=== PATIENT | female | born 1960 | race Caucasian/White ===

== ENCOUNTER 2017-03-26 09:21 | Emergency (ER) | payer OTHER ==
[~2017-03-26] VITALS: Ht 160 cm; Wt 70.0 kg
[2017-03-26 09:23] VITALS: BP 97/56; PULSE 92; RESP 24; TEMP 99.1; O2SAT 94
[2017-03-26] MEDS ORDERED: PRAV20TA2 PO (09:36)
[2017-03-26] MEDS ORDERED: BUPR150CR PO (09:36)
[2017-03-26] MEDS ORDERED: LEVO125T4 PO (09:36)
[2017-03-26] MEDS ORDERED: PROZ20CA11 PO (09:36)
[2017-03-26] MEDS ORDERED: KETOROLAC TROMETHAMINE 60 MG/2 ML (IM) VIAL IM ONE (10:15)
[2017-03-26] MEDS ORDERED: HYDROmorphone HCL PF 1 MG/ML VIAL IM ONE (10:15)
[2017-03-26] MEDS ORDERED: NAPR250T PO (10:50)
[2017-03-26] MEDS ORDERED: OMEP20TA PO (10:50)
[2017-03-26] MEDS ORDERED: PERC5TAB12 PO (10:50)
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
[2017-03-26 10:53] VITALS: RESP 16
[2017-03-26 10:55] VITALS: BP 110/69; TEMP 97.8
[2017-04-22] MEDS ORDERED: ROSU40 PO (13:02)
[2017-05-13] MEDS ORDERED: ROSU20 PO (08:16)
== END 2017-03-26 10:55 | disposition home or self-care (01) ==
LOC: NEPD 09:21
DX: M54.5 Low back pain (principal); G89.29 Other chronic pain; E03.9 Hypothyroidism, unspecified; E78.5 Hyperlipidemia, unspecified; F17.200 Nicotine dependence, unspecified, uncomplicated; Z88.0 Allergy status to penicillin; Z79.899 Other long term (current) drug therapy
CPT/HCPCS: 96372; 99284; J1170; J1885

== ENCOUNTER 2017-03-26 21:43 | Inpatient (IN) | payer OTHER, MEDICARE ==
[~2017-03-26] VITALS: Ht 154.9 cm; Wt 88.5 kg
[~2017-03-26 21:43] MED LIST: BUPR150CR PO; IOHEXOL 350 MG/ML 10 ML VIAL (for RAD DIAG) IVCONTRAST ONE; LEVO125T4 PO; NAPR250T PO; OMEP20TA PO; PERC5TAB12 PO; PRAV20TA2 PO; PROZ20CA11 PO
[2017-03-26 21:45] VITALS: BP 111/62; PULSE 102; RESP 20; TEMP 99.5; O2SAT 97
[2017-03-27] VITALS (11 sets, daily range): BP systolic 85–135; BP diastolic 60–77; PULSE 90–106; RESP 16–25; TEMP 98.1–103.3; O2SAT 92–100
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
[2017-03-27] MEDS ORDERED: ONDANSETRON HCL 4 MG/2 ML VIAL IVP ONE (02:15)
[2017-03-27] MEDS ORDERED: MORPHINE SULFATE 4 MG/ML INJ IV PUSH ONE (02:15)
[2017-03-27] MEDS ORDERED: SODIUM CHLOR 0.9% 1000 ML INJ 1,000 ML IV SCH (02:36)
[2017-03-27 02:39] LABS: BASOPHIL # 0.1 TH/MM3 (0-0.2); BASOPHIL % 0.6 % (0.0-2.0); EOSINOPHIL % 0.1 % (0.0-4.0); HEMATOCRIT 33.4 % (35.0-46.0); HEMO FLAGS DIFF FINAL; LYMPH % 20.6 % (9.0-44.0); LYMPHOCYTE # 3.2 TH/MM3 (1.0-4.8); MEAN CELL VOLUME 96.7 FL (80.0-100.0); MEAN CORPUSCULAR HEMOGLOBIN 33.2 PG (27.0-34.0); MEAN CORPUSCULAR HGB CONC 34.4 % (32.0-36.0); NEUT % 69.7 % (16.0-70.0); PLATELET COUNT 286 TH/MM3 (150-450); RED BLOOD COUNT 3.46 MIL/MM3 (4.00-5.30); RED CELL DISTRIBUTION WIDTH 13.9 % (11.6-17.2); WHITE BLOOD COUNT 15.8 TH/MM3 (4.0-11.0)
[2017-03-27 02:46] LABS: ALT (GPT) 18 U/L (10-53); ANION GAP 10 MEQ/L (5-15); AST (GOT) 14 U/L (15-37); BICARBONATE 21.6 MEQ/L (21.0-32.0); BLOOD UREA NITROGEN 23 MG/DL (7-18); CHLORIDE 104 MEQ/L (98-107); GLOMERULAR FILTRATION RATE 60 ML/MIN (>89); POTASSIUM 3.6 MEQ/L (3.5-5.1); SODIUM (NA) 136 MEQ/L (136-145)
[2017-03-27 02:49] LABS: ALKALINE PHOSPHATASE 82 U/L (45-117); TOTAL BILIRUBIN ADULT 0.3 MG/DL (0.2-1.0)
[2017-03-27 03:14] LABS: BACTERIA, URINE RARE /hpf; BLOOD, URINE MOD (NEG); COMMENT (UR) CULTURE INDICATED; CULTURE IF INDICATED CULTURE INDICATED; GLUCOSE,URINE NEG (NEG); KETONE, URINE NEG (NEG); MUCUS URINE FEW /lpf (OCC); NITRITE,URINE NEG (NEG); SQUAMOUS EPITHELIAL CELL URINE 1 /hpf (0-5); URINE COLOR YELLOW (YELLW/STRAW)
[2017-03-27] MEDS ORDERED: HYDROmorphone HCL PF 1 MG/ML VIAL IV PUSH ONE ×2 (03:30→10:45)
--- NOTE | 2017-03-27 03:31 | RADRPT ---
EXAM DATE/TIME: 03/27/2017 03:00 [facility] COMPARISON: No previous studies available for comparison. INDICATIONS : Lower abdominal pain. IV CONTRAST: 100 cc Omnipaque 350 (iohexol) IV ORAL CONTRAST: No oral contrast ingested. RADIATION DOSE: 11.75 CTDIvol (mGy) MEDICAL HISTORY : Hypertension. SURGICAL HISTORY : section. Fusion, lumbar. ENCOUNTER: Initial ACUITY: 2 days PAIN SCALE: 10/10 LOCATION: Bilateral lower quadrant TECHNIQUE: Volumetric scanning of the abdomen and pelvis was performed. Using automated exposure control and ad justment of the mA and/or kV according to patient size, radiation dose was kept as low as reasonably achievable to obtain optimal diagnostic quality images. DICOM format image data is available electro nically for review and comparison. FINDINGS: LOWER LUNGS: There is dependent atelectasis. LIVER: The liver contains multiple low-density lesions in both lobes with the largest measuring 12 mm. The s ubcentimeter lesions are too small to characterize. No highly suspicious lesion is seen. There is no dilation of the biliary tree. No calcified gallstones. SPLEEN: Normal size without lesion. PANCREAS: Within normal limits. KIDNEYS: Normal in size and shape. Moderate to severe left hydronephrosis is present with a staghorn calculus in the renal pelvis and 2 nonobstructing lower pole renal stones measuring up to 14 mm. There is inf lammation and mild urothelial thickening of the proximal ureter and renal pelvis. No ureteral stones are visualized. There is a 13 mm cyst in the right lower pole kidney. ADRENAL GLANDS: Within normal limits. VASCULAR: There is no aortic aneurysm. There is severe atherosclerotic disease. BOWEL/MESENTERY: The stomach, small bowel, and colon demonstrate no acute abnormality. There is no free intraperitone al air or fluid. The appendix is normal. ABDOMINAL WALL: Within normal limits. RETROPERITONEUM: There is no lymphadenopathy. BLADDER: No wall thickening or mass. REPRODUCTIVE: Within normal limits. INGUINAL: There is no lymphadenopathy or hernia. MUSCULOSKELETAL: There degenerative changes of the lumbar spine and patient is post posterior spinal fixation with yoly dware and laminectomy. CONCLUSION: 1. There is a left staghorn calculus in the renal pelvis causing moderate to severe left hydronephros is and inflammatory changes of the renal pelvis and proximal left ureter. 2. There are additional nonobstructing stones in the left lower pole collecting system measuring up t o 14 mm. Joselo Castro MD on March 27, 2017 at 3:24 Board Certified Radiologist. This report was verified electronically.
--- NOTE | 2017-03-27 03:34 | RADRPT ---
EXAM DATE/TIME: 03/27/2017 03:00 [facility] COMPARISON: No previous studies available for comparison. INDICATIONS : Severe lower back pain, radiates down both legs. RADIATION DOSE: ; Reconstructed from previous dataset, no dose MEDICAL HISTORY : None SURGICAL HISTORY : Fusion, lumbar. ENCOUNTER: Initial ACUITY: 1 day PAIN SCALE: 10/10 LOCATION: Lumbar spine. TECHNIQUE: Volumetric scanning of the lumbar spine was performed. Multiplanar reconstructions in the sagittal, coronal and oblique axial planes were performed. Using automated exposure control and adjustment of the mA and/or kV according to patient size, radiation dose was kept as low as reasonably achievable t o obtain optimal diagnostic quality images. DICOM format image data is available electronically for review and comparison. FINDINGS: VERTEBRAE: Normal vertebral body height. There has been prior laminectomy at L4-L5 and L5-S1. Posterior spinal h ardware is present at L4-S1 consisting of pedicular screws and vertical stabilization rods. There is partial fusion between the L4-L5 and L5-S1 levels. ALIGNMENT: No anterolisthesis or retrolisthesis. T12-L1: No disc herniation, canal stenosis, or neural foraminal stenosis. L1-L2: No disc herniation, canal stenosis, or neural foraminal stenosis. L2-L3: No disc herniation, canal stenosis, or neural foraminal stenosis. L3-L4: There is a diffuse disc bulge with facet hypertrophy bilaterally, right greater than left. These mario ges likely narrow the spinal canal. Spinal canal is obscured partially secondary to beam hardening ar tifact. There is mild neural foraminal narrowing bilaterally. L4-L5: Spinal canal is mostly obscured by beam hardening artifact. No neural foraminal narrowing is present. L5-S1: Spinal canal is mostly obscured by beam hardening artifact. No neural foraminal narrowing is present. CONCLUSION: 1. Mild spinal canal stenosis at L3-L4 secondary to disc bulge and facet arthrosis. 2. Postsurgical changes at L4-S1, as above. Joselo Castro MD on March 27, 2017 at 3:30 Board Certified Radiologist. This report was verified electronically.
[2017-03-27] MEDS ORDERED: cefTRIAXone INJ 1,000 MG in SODIUM CHLORIDE 0.9% INJ 100 ML IV ONE (03:45)
[2017-03-27] MEDS ORDERED: KETOROLAC TROMETHAMINE 30 MG/ML (IVP) VIAL IV PUSH ONE (03:45)
[2017-03-27] MEDS ORDERED: NALOXONE HCL 0.4 MG/ML AMP IV PRN (04:00)
[2017-03-27] MEDS ORDERED: SODIUM CHLORIDE 0.9% FLUSH 10 ML FLUSH IV FLUSH PRN (04:00)
[2017-03-27] MEDS: CIPROFLOXACIN 400 MG PREMIX 200 ML IV SCH ×2 (04:34→17:01)
[2017-03-27] MEDS: SODIUM CHLOR 0.9% 1000 ML INJ 1,000 ML IV SCH ×2 (04:34→19:30)
--- NOTE | 2017-03-27 05:28 | HHI.HP ---
HPI Service [facility] Primary Care Physician Quirino Garcia MD Admission Diagnosis pyelonephritis, hydronephrosis, renal stone Diagnoses: Chief Complaint: Back pain Travel History International Travel<30 Days: No Contact w/Intl Traveler <30 Da: No Traveled to Known Affected Are: No History of Present Illness Written by RIVER Brock acting as scribe for [Navin] on 03/27/17 at 05: 21. 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 She states the back pain is severe in her lower back and it radiates to her hips and she has associated diaphoresis and nausea. She denies any fevers, chills, dysuria, chest pain or sob. Review of Systems Except as stated in HPI: all other systems reviewed are Neg Past Family Social History Past Medical History hypothyroid htn (not on any medications for 4 months) depression anxiety HLD nerve damage Past Surgical History C section x 3 Back surgery Reported Medications Reported Meds & Active Scripts Active Omeprazole 20 Mg Tab 20 Mg PO DAILY 14 Days Percocet (Oxycodone-Acetaminophen) 5-325 mg Tab 1-2 Tab PO Q6H PRN Naproxen 250 Mg Tab 250 Mg PO BID 14 Days Reported Prozac (Fluoxetine HCl) 20 Mg Cap Unknown Dose PO DAILY Pravastatin 20 Mg Tab Unknown Dose PO DAILY Levothyroxine (Levothyroxine Sodium) 125 Mcg Tab 125 Mcg PO DAILY Wellbutrin SR 12 HR (Bupropion HCl) 150 Mg Tab 150 Mg PO Q12HR Allergies: Coded Allergies: amoxicillin (Verified Allergy, Intermediate, hives, 03/27/17) Active Ordered Medications Current Medications Medications (Trade) Dose Ordered Sig/Devan Route Start Time Stop Time Status Last Admin Sodium Chloride 1,000 ml @ 100 mls/hr Q10H IV 03/27/17 03:59 03/27/17 04:34 (NS Flush) 2 ml UNSCH PRN IV FLUSH 03/27/17 04:00 (NS Flush) 2 ml BID IV FLUSH 03/27/17 09:00 (Zofran Inj) 4 mg Q6H PRN IVP 03/27/17 04:00 (Narcan Inj) 0.4 mg UNSCH PRN IV 03/27/17 04:00 (Dilaudid Pf Inj) 0.5 mg Q4H PRN IV PUSH 03/27/17 04:00 Ciprofloxacin/ Dextrose 200 ml @ 200 mls/hr Q12H IV 03/27/17 04:00 03/27/17 04:34 Family History Mom: HTN Social History Patient denies any tobacco, alcohol or illicit drug use. Physical Exam Vital Signs Vital Signs Date Time Temp Pulse Resp B/P (MAP) Pulse Ox O2 Delivery O2 Flow Rate FiO2 03/27/17 01:50 90 16 123/72 (89) 97 Room Air 03/26/17 21:45 99.5 102 20 111/62 (78) 97 Room Air Physical Exam GENERAL: This is a well-nourished, well-developed patient, in no apparent distress. SKIN: No rashes, ecchymoses or lesions. Cool and dry. HEAD: Atraumatic. Normocephalic. . EYES: Pupils equal round and reactive. Extraocular motions intact. ENT: Nose without bleeding, purulent drainage or septal hematoma. Airway patent. NECK: Trachea midline. No JVD or lymphadenopathy. CARDIOVASCULAR: Regular rate and rhythm without murmurs, gallops, or rubs. RESPIRATORY: Clear to auscultation. Breath sounds equal bilaterally. No wheezes , rales, or rhonchi. GASTROINTESTINAL: Abdomen soft, non-tender, nondistended. No hepato-splenomegaly , or palpable masses. No guarding. MUSCULOSKELETAL: Extremities without clubbing, cyanosis, or edema. No joint tenderness, effusion, or edema noted. No calf tenderness. CVA tenderness NEUROLOGICAL: Awake and alert. Motor and sensory grossly within normal limits. Normal speech. Laboratory Laboratory Tests Test 03/27/17 02:15 03/27/17 02:40 03/27/17 04:00 White Blood Count 15.8 Red Blood Count 3.46 Hemoglobin 11.5 Hematocrit 33.4 Mean Corpuscular Volume 96.7 Mean Corpuscular Hemoglobin 33.2 Mean Corpuscular Hemoglobin Concent 34.4 Red Cell Distribution Width 13.9 Platelet Count 286 Mean Platelet Volume 7.1 Neutrophils (%) (Auto) 69.7 Lymphocytes (%) (Auto) 20.6 Monocytes (%) (Auto) 9.0 Eosinophils (%) (Auto) 0.1 Basophils (%) (Auto) 0.6 Neutrophils # (Auto) 11.0 Lymphocytes # (Auto) 3.2 Monocytes # (Auto) 1.4 Eosinophils # (Auto) 0.0 Basophils # (Auto) 0.1 CBC Comment DIFF FINAL Differential Comment Blood Urea Nitrogen 23 Creatinine 0.95 Random Glucose 113 Total Protein 7.7 Albumin 3.2 Calcium Level 8.9 Alkaline Phosphatase 82 Aspartate Amino Transf (AST/SGOT) 14 Alanine Aminotransferase (ALT/SGPT) 18 Total Bilirubin 0.3 Sodium Level 136 Potassium Level 3.6 Chloride Level 104 Carbon Dioxide Level 21.6 Anion Gap 10 Estimat Glomerular Filtration Rate 60 Lipase 83 Urine Color YELLOW Urine Turbidity CLOUDY Urine pH 6.0 Urine Specific [place] 1.024 Urine Protein 30 Urine Glucose (UA) NEG Urine Ketones NEG Urine Occult Blood MOD Urine Nitrite NEG Urine Bilirubin NEG Urine Urobilinogen LESS THAN 2.0 Urine Leukocyte Esterase LARGE Urine RBC 19 Urine WBC Urine WBC Clumps FEW Urine Squamous Epithelial Cells 1 Urine Bacteria RARE Urine Mucus FEW Microscopic Urinalysis Comment CULTURE INDICATED Lactic Acid Level 0.7 Date/Time Source Procedure Growth Status 03/27/17 03:50 Blood Peripheral Aerobic Blood Culture Pending Received 03/27/17 03:50 Blood Peripheral Anaerobic Blood Culture Pending Received 03/27/17 02:40 Urine Clean Catch Urine Culture Pending Received Result Diagram: 03/27/175 03/27/17 0215 Imaging Last Impressions Abdomen/Pelvis CT 03/27/17 0208 Signed Impressions: Service Date/Time: Monday, March 27, 2017 03:00 - CONCLUSION: 1. There is a left staghorn calculus in the renal pelvis causing moderate to severe left hydronephrosis and inflammatory changes of the renal pelvis and proximal left ureter. 2. There are additional nonobstructing stones in the left lower pole collecting system measuring up to 14 mm. Joselo Castro MD Lumbar Spine CT 03/27/17 0000 Signed Impressions: Service Date/Time: Monday, March 27, 2017 03:00 - CONCLUSION: 1. Mild spinal canal stenosis at L3-L4 secondary to disc bulge and facet arthrosis. 2. Postsurgical changes at L4-S1, as above. MD Rony Mast VTE Risk Assessment Caprinjuanito VTE Risk Assessment: No/Low Risk (score <= 1) Caprini Risk Assessment Model Point Value = 1 Point Value = 2 Point Value = 3 Point Value = 5 Age 41-60 Minor surgery BMI > 25 kg/m2 Swollen legs Varicose veins or History of unexplained or recurrent spontaneous Oral contraceptives or hormone replacement Sepsis (< 1 month) Serious lung disease, including pneumonia (< 1 month) Abnormal pulmonary function Acute myocardial infarction Congestive heart failure (< 1 month) History of inflammatory bowel disease Medical patient at bed rest Age 61-74 Arthroscopic surgery Major open surgery (> 45 min) Laparoscopic surgery (> 45 min) Malignancy Confined to bed (> 72 hours) Immobilizing plaster cast Central venous access Age >= 75 History of VTE Family history of VTE Factor V Leiden Prothrombin [id number] Lupus anticoagulant Anticardiolipin antibodies Elevated serum homocysteine Heparin-induced thrombocytopenia Other congenital or acquired thrombophilia Stroke (< 1 month) Elective arthroplasty Hip, pelvis, or leg fracture Acute spinal cord injury (< 1 month) Prophylaxis Regimen Total Risk Factor Score Risk Level Prophylaxis Regimen 0-1 Low Early ambulation 2 Moderate Order ONE of the following: *Sequential Compression Device (SCD) *Heparin 5000 units SQ BID 3-4 Higher Order ONE of the following medications: *Heparin 5000 units SQ TID *Enoxaparin/Lovenox 40 mg SQ daily (WT < 150 kg, CrCl > 30 mL/min) *Enoxaparin/Lovenox 30 mg SQ daily (WT < 150 kg, CrCl > 10-29 mL/min) *Enoxaparin/Lovenox 30 mg SQ BID (WT < 150 kg, CrCl > 30 mL/min) AND/OR *Sequential Compression Device (SCD) 5 or more Highest Order ONE of the following medications: *Heparin 5000 units SQ TID (Preferred with Epidurals) *Enoxaparin/Lovenox 40 mg SQ daily (WT < 150 kg, CrCl > 30 mL/min) *Enoxaparin/Lovenox 30 mg SQ daily (WT < 150 kg, CrCl > 10-29 mL/min) *Enoxaparin/Lovenox 30 mg SQ BID (WT < 150 kg, CrCl > 30 mL/min) AND *Sequential Compression Device (SCD) Assessment and Plan Problem List: (1) Pyelonephritis ICD Code: N12 - Tubulo-interstitial nephritis, not specified as acute or chronic Status: Acute (2) Hydronephrosis ICD Code: N13.30 - Unspecified hydronephrosis Status: Acute (3) Kidney stone ICD Code: N20.0 - Calculus of kidney Status: Acute Assessment and Plan 56 y/o female with a history hypothyroid, htn (not on any medications for 4 months), depression, anxiety, HLD and 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 Kidney stone with hydronephrosis Abdominal CT shows a left staghorn calculus in the renal pelvis causing moderate to severe left hydronephrosis and inflammatory changes of the renal pelvis and proximal left ureter. -Consult urology for possible stone removal -Nothing by mouth -Pain management with IV Dilaudid -IVF hydration Leukocytosis suspect pyelonephritis, WBC 17.1, abnormal UA with large leukocyte esterase, moderate acute blood and protein -Urine culture pending -IV antibiotics ciprofloxacin -Trend CBC in a.m. Depression, chronic: Will resume home medications. Hypothyroidism, chronic: Will order home medications DVT prophylaxis: SCDs This note was transcribed by severo [Shawna Cuevas]. I, Dr. Virgil Holden personally performed the history, physical exam, and medical decision making; and confirmed the accuracy of the information in the transcribed note. Authenticated by Dr. Virgil Holden on 03/27/17 at 05:21. Discussed Condition With Patient and ED physician Physician Certification 2 Midnight Certification Type: Admission for Inpatient Services Order for Inpatient Services The services are ordered in accordance with Medicare regulations or non- Medicare payer requirements, as applicable. In the case of services not specified as inpatient-only, they are appropriately provided as inpatient services in accordance with the 2-midnight benchmark. Estimated LOS (days): 2 days is the estimated time the patient will need to remain in the hospital, assuming treatment plan goals are met and no additional complications. Post-Hospital Plan: Home Problem Qualifiers (1) Hydronephrosis: Qualified Codes: N13.2 - Hydronephrosis with renal and ureteral calculous obstruction Shawna Cuevas Mar 27, 2017 05:28 Virgil Holden MD Mar 27, 2017 09:38
[2017-03-27] MEDS: LEVOTHYROXINE SODIUM 125 MCG TAB PO SCH (06:00)
[2017-03-27] MEDS: buPROPion HCL 150 MG SUSTAINED RELEASE TAB PO SCH ×2 (08:12→20:17)
[2017-03-27] MEDS: SODIUM CHLORIDE 0.9% FLUSH 10 ML FLUSH IV FLUSH SCH ×2 (08:12→20:17)
[2017-03-27] MEDS: PANTOPRAZOLE SOD 20 MG DELAYED RELEASE TAB PO SCH (08:12)
[2017-03-27] MEDS: HYDROmorphone HCL PF 1 MG/ML VIAL IV PUSH PRN ×2 (08:13→10:49)
--- NOTE | 2017-03-27 10:29 | HHI.PR ---
Addendum to Inpatient Note Additional Information pt seen and examined , pain is "07/05" , will give another dose of Dilaudid now to control pain Igor Carranza MD Mar 27, 2017 10:29
--- NOTE | 2017-03-27 10:47 | PD.CONS ---
HPI Service Urology Consult Requested By Primary Care Physician Quirino Garcia MD Diagnosis: (1) Pyelonephritis ICD Code: N12 - Tubulo-interstitial nephritis, not specified as acute or chronic (2) Hydronephrosis ICD Code: N13.30 - Unspecified hydronephrosis (3) Kidney stone ICD Code: N20.0 - Calculus of kidney History of Present Illness 26-year-old female presents with 24-hour onset of abdominal pain. She denies fever or chills or nausea and vomiting. CT scan emergency room demonstrated a large left staghorn calculus causing moderate to severe hydronephrosis with some mild stranding. She notes a prior history of stones in the past. She has a history of hypothyroidism, anxiety, hyperlipidemia, hypertension and depression. She denies any surgical intervention for stones in the past. She denies a family history of stones. Review of Systems ROS Limitations: Clinical Condition Constitutional: DENIES: Diaphoretic episodes Endocrine: DENIES: Abnorml menstrual pattern Eyes: DENIES: Blurred vision Respiratory: DENIES: Apneas Cardiovascular: DENIES: Chest pain Gastrointestinal: COMPLAINS OF: Abdominal pain Genitourinary: DENIES: Abnormal vaginal bleeding Musculoskeletal: DENIES: Joint pain Integumentary: DENIES: Abnormal pigmentation Hematologic/lymphatic: DENIES: Bruising Immunologic/allergic: DENIES: Eczema Neurologic: DENIES: Abnormal gait Psychiatric: COMPLAINS OF: Anxiety, Depression Except as stated in HPI: all other systems reviewed are Neg Past Family Social History Past Medical History Hypothyroidism Nephrolithiasis Hypertension Anxiety and depression Hyperlipidemia Past Surgical History Back surgery Allergies: Coded Allergies: amoxicillin (Verified Allergy, Intermediate, hives, 03/27/17) Family History Negative for stones Social History Denies smoking drinking or using drugs Physical Exam Vital Signs Date Time Temp Pulse Resp B/P (MAP) Pulse Ox O2 Delivery O2 Flow Rate FiO2 03/27/17 07:30 98.1 90 20 118/74 (89) 94 03/27/17 03:30 97 16 135/77 (96) 92 Nasal Cannula 2.00 03/27/17 01:50 90 16 123/72 (89) 97 Room Air 03/26/17 21:45 99.5 102 20 111/62 (78) 97 Room Air Physical Exam GENERAL: This is a well-nourished, well-developed patient, in no apparent distress. SKIN: No rashes, ecchymoses or lesions. Cool and dry. HEAD: Atraumatic. Normocephalic. No temporal or scalp tenderness. EYES: Pupils equal round and reactive. Extraocular motions intact. No scleral icterus. No injection or drainage. ENT: Nose without bleeding, purulent drainage or septal hematoma. Throat without erythema, tonsillar hypertrophy or exudate. Uvula midline. Airway patent. NECK: Trachea midline. No JVD or lymphadenopathy. Supple, nontender, no meningeal signs. CARDIOVASCULAR: Regular rate and rhythm without murmurs, gallops, or rubs. RESPIRATORY: Clear to auscultation. Breath sounds equal bilaterally. No wheezes , rales, or rhonchi. GASTROINTESTINAL: Abdomen soft, generalized tenderness, nondistended. No hepato- splenomegaly, or palpable masses. No guarding. GENITOURINARY: Bilateral CVA tenderness is noted. Normal female external genitalia MUSCULOSKELETAL: Extremities without clubbing, cyanosis, or edema. No joint tenderness, effusion, or edema noted. No calf tenderness. Negative Homans sign bilaterally. NEUROLOGICAL: Awake and alert. Cranial nerves II through XII intact. Motor and sensory grossly within normal limits. Five out of 5 muscle strength in all muscle groups. Normal speech. Laboratory Tests Test 03/27/17 02:15 03/27/17 02:40 03/27/17 04:00 White Blood Count 15.8 Red Blood Count 3.46 Hemoglobin 11.5 Hematocrit 33.4 Mean Corpuscular Volume 96.7 Mean Corpuscular Hemoglobin 33.2 Mean Corpuscular Hemoglobin Concent 34.4 Red Cell Distribution Width 13.9 Platelet Count 286 Mean Platelet Volume 7.1 Neutrophils (%) (Auto) 69.7 Lymphocytes (%) (Auto) 20.6 Monocytes (%) (Auto) 9.0 Eosinophils (%) (Auto) 0.1 Basophils (%) (Auto) 0.6 Neutrophils # (Auto) 11.0 Lymphocytes # (Auto) 3.2 Monocytes # (Auto) 1.4 Eosinophils # (Auto) 0.0 Basophils # (Auto) 0.1 CBC Comment DIFF FINAL Differential Comment Blood Urea Nitrogen 23 Creatinine 0.95 Random Glucose 113 Total Protein 7.7 Albumin 3.2 Calcium Level 8.9 Alkaline Phosphatase 82 Aspartate Amino Transf (AST/SGOT) 14 Alanine Aminotransferase (ALT/SGPT) 18 Total Bilirubin 0.3 Sodium Level 136 Potassium Level 3.6 Chloride Level 104 Carbon Dioxide Level 21.6 Anion Gap 10 Estimat Glomerular Filtration Rate 60 Lipase 83 Urine Color YELLOW Urine Turbidity CLOUDY Urine pH 6.0 Urine Specific [place] 1.024 Urine Protein 30 Urine Glucose (UA) NEG Urine Ketones NEG Urine Occult Blood MOD Urine Nitrite NEG Urine Bilirubin NEG Urine Urobilinogen LESS THAN 2.0 Urine Leukocyte Esterase LARGE Urine RBC 19 Urine WBC Urine WBC Clumps FEW Urine Squamous Epithelial Cells 1 Urine Bacteria RARE Urine Mucus FEW Microscopic Urinalysis Comment CULTURE INDICATED Lactic Acid Level 0.7 Date/Time Source Procedure Growth Status 03/27/17 03:50 Blood Peripheral Aerobic Blood Culture Pending Received 03/27/17 03:50 Blood Peripheral Anaerobic Blood Culture Pending Received 03/27/17 02:40 Urine Clean Catch Urine Culture Pending Received Result Diagram: 03/27/175 03/27/17 0215 Imaging Last Impressions Abdomen/Pelvis CT 03/27/17 0208 Signed Impressions: Service Date/Time: Monday, March 27, 2017 03:00 - CONCLUSION: 1. There is a left staghorn calculus in the renal pelvis causing moderate to severe left hydronephrosis and inflammatory changes of the renal pelvis and proximal left ureter. 2. There are additional nonobstructing stones in the left lower pole collecting system measuring up to 14 mm. Joselo Castro MD Lumbar Spine CT 03/27/17 0000 Signed Impressions: Service Date/Time: Monday, March 27, 2017 03:00 - CONCLUSION: 1. Mild spinal canal stenosis at L3-L4 secondary to disc bulge and facet arthrosis. 2. Postsurgical changes at L4-S1, as above. Joselo Castro MD Assessment and Plan Assessment and Plan 56-year-old female with findings of a large left staghorn calculus with moderate to severe hydronephrosis. Due to large stone would recommend a left percutaneous nephrostomy tube with nephroureteral stent. Check urine cultures and continue with IV antibiotics Will need left percutaneous nephrolithotomy after her infection has cleared as an outpatient. Thank you for the consult and allowing me to participate in care of this patient. Problem Qualifiers (1) Hydronephrosis: Qualified Codes: N13.2 - Hydronephrosis with renal and ureteral calculous obstruction Shar Morales DO Mar 27, 2017 10:47
[2017-03-27] MEDS ORDERED: ONDANSETRON HCL 4 MG/2 ML VIAL IV PUSH ONE (12:00)
[2017-03-27] MEDS ORDERED: LACTATED RINGER'S 1000 ML INJ 1,000 ML IV ONE (12:00)
[2017-03-27] MEDS ORDERED: NEOSTIGMINE 3 MG/3 ML SYR IV ONE (12:00)
[2017-03-27] MEDS ORDERED: KETAMINE HCL 500 MG/5 ML VIAL IV ONE (12:00)
[2017-03-27] MEDS ORDERED: IOHEXOL 350 MG/ML 50 ML BTL (for RAD DIAG) IVCONTRAST ONE (12:00)
[2017-03-27] MEDS ORDERED: PROPOFOL 200 MG/20 ML AMP IV ONE (12:00)
[2017-03-27] MEDS ORDERED: PHENYLEPH/NS 1000 MCG/10 ML SYR IV ONE (12:00)
[2017-03-27 12:42] LABS: APTT (PATIENT) 33.6 SEC (24.3-30.1); PROTHROMBIN TIME - PATIENT 11.6 SEC (9.8-11.6)
[2017-03-27] MEDS ORDERED: MIDAZOLAM HCL 2 MG/2 ML VIAL ONE ×2 (13:32)
[2017-03-27] MEDS ORDERED: LEVOFLOXACIN 500 MG PREMIX INJ 100 ML IV ONE (15:08)
[2017-03-27] MEDS ORDERED: MEPERIDINE HCL 50 MG/ML VIAL ONE (16:06)
--- NOTE | 2017-03-27 16:32 | PD.RAD ---
Post Procedure Progress Note Pre Procedure Diagnosis: (1) Pyelonephritis Post Procedure Diagnosis: (1) Pyelonephritis Procedure Date: Mar 27, 2017 Supervising Radiologist: Morro Pinon Proceduralist/Assist: Stephy Luciano, RT(R)(CV), Santiago Mandel, RT(R), Giselle Alaniz, RT(R) Anesthesia: Conscious Sedation Plan of Activity Patient to Unit: ROPU Patient Condition: Fair See PACS Report for procedural detail/treatment Drainage Procedure Procedure 1 Imaging Guidance: Fluoroscopy Side: Left Procedure Type: Nephrostomy Procedure: Evaluation (failed nephrostomy secondary to staghor, pyonephrosis with specimen sent to [facility]) Morro Pinon MD Mar 27, 2017 16:32
[2017-03-27] MEDS: GENTAMICIN 80 MG PREMIX 100 ML IV SCH ×2 (16:37→18:07)
[2017-03-27] MEDS ORDERED: ACETAMINOPHEN 325 MG TAB PO PRN (16:45)
[2017-03-27] MEDS ORDERED: ACETAMINOPHEN 1000 MG/100 ML VIAL IV ONE (16:45)
[2017-03-27] MEDS ORDERED: IOHEXOL 350 MG/ML 50 ML BTL (for RAD DIAG) ONE (18:37)
[2017-03-27] MEDS ORDERED: NOREPINEPHRINE 4 MG/4 ML AMP ONE (18:59)
--- NOTE | 2017-03-27 19:00 | PD.OP ---
Operative Report Date of Surgery: Mar 27, 2017 Preoperative Diagnosis: (1) Staghorn renal calculus (2) Hydronephrosis, left Postoperative Diagnosis: (1) Hydronephrosis, left (2) Staghorn renal calculus Procedure: Cystoscopy, left retrograde pyelogram, placement of left shelter ureteral stent and left nephrostogram Anesthesia: General Surgeon: Chester Marsh Binding End Stitcher(s): None Operation and Findings: Indication for procedure: Case of a pleasant 56-year-old female with left hydronephrosis secondary to a staghorn calculus who underwent placement of a percutaneous nephrostomy tube earlier today. The nephrostomy tube was placed in one of the lower pole calyces however a nephro ureteral stent was unable to be placed due to obstruction from the staghorn calculus. Patient presents now to further decompress the left kidney with placement of a left ureteral stent. Operative procedure in detail: Patient was brought to the operating suite and placed supine on the cystoscopy table. She was then placed under general anesthesia. She was then repositioned in the dorsal lithotomy position and prepped and draped in normal sterile fashion. After an appropriate timeout was undertaken I proceeded with cystoscopic evaluation utilizing the rigid cystoscope with the 20 Russian sheath and the 30 lens. Both right and left ureteral orifice easily correct anatomic position, there was clear reflux noted from the right orifice and there was no reflux noted on the left. I then proceeded to pass a sensor 0.035 wire up the left ureter up to the point of the obstructing staghorn stone. A 6 Russian open-ended catheter was advanced over the wire up to the point of the stone and the wire was gently finasteride and able to be passed beyond the stone and into the upper pole. The open-ended catheter was further advanced into the upper pole and the wire was withdrawn. A sample of urine was then obtained from the intrarenal collecting system and sent off for culture and sensitivity. A retrograde pyelogram study was then performed to outline the collecting system and the sensor wire was subsequently reintroduced. The open-ended catheter was then exchanged for a shelter [place] 6 Russian 24 cm stent and this was placed under both cystoscopic and fluoroscopic guidance without difficulty. The upper coil of the stent was placed in the upper pole and the lower coil within the urinary bladder. Once the stent was in proper position the trailing string was removed. A 16 Russian 10 cc Carreon catheter was then placed and connected to gravity drainage. I then proceeded with performing a nephrostogram from the recently passed nephrostomy tube and the coil appeared to be in good position within one of the lower pole calyces. The patient tolerated the procedures without complications and was transferred to the PACU in satisfactory condition. Chester Marsh MD Mar 27, 2017 19:00
[2017-03-27] MEDS ORDERED: DO NOT ADM ANY ANTICOAGULANT DRUGS PRN (19:05)
--- NOTE | 2017-03-27 20:35 | PD.CONS ---
HPI Service Critical Care Medicine Consult Requested By Rapid response team Reason for Consult hypotension Primary Care Physician Quirino Garcia MD History of Present Illness This is a 56-year-old female with a history of hypertension, depression, anxiety who presented to the emergency department on 03/27 for back pain and was found to have an obstructing renal calculus with infective obstruction. She went to interventional radiology today for percutaneous nephrostomy tube. Immediately after per continues to prostate tube placement, the patient began having rigors, fevers, tachycardia and hypotension. rapid response was called. she was given 1L NS bolus and transferred emergently to the ICU. IR did drain approximately 10-20cc of purulent fluid from her nephrostomy tube and placed the tube to drainage. I evaluate the patient on arrival to the ICU. She received 4mg versed and 200 mcg fentanyl for the procedure and is still quite sedated and unable to provide additional history. she is on a NRB but spo2 100% . the remainder of the history is obtained from chart review and discussions with the medical team. Review of Systems ROS Limitations: Clinical Condition, Altered Mental Status Past Family Social History Allergies: Coded Allergies: amoxicillin (Verified Allergy, Intermediate, hives, 03/27/17) Past Medical History hypothyroid htn (not on any medications for 4 months) depression anxiety HLD nerve damage Past Surgical History C section x 3 Back surgery Reported Medications Omeprazole 20 Mg Tab 20 Mg PO DAILY 14 Days Percocet (Oxycodone-Acetaminophen) 5-325 mg Tab 1-2 Tab PO Q6H PRN Naproxen 250 Mg Tab 250 Mg PO BID 14 Days Prozac (Fluoxetine HCl) 20 Mg Cap Unknown Dose PO DAILY Pravastatin 20 Mg Tab Unknown Dose PO DAILY Levothyroxine (Levothyroxine Sodium) 125 Mcg Tab 125 Mcg PO DAILY Wellbutrin SR 12 HR (Bupropion HCl) 150 Mg Tab 150 Mg PO Q12HR Active Ordered Medications See MAR Family History Mom: HTN Social History Patient denies any tobacco, alcohol or illicit drug use. Physical Exam Vital Signs Vital Signs Date Time Temp Pulse Resp B/P (MAP) Pulse Ox O2 Delivery O2 Flow Rate FiO2 03/27/17 19:55 98.6 94 14 94 Simple Mask 6 03/27/17 19:45 99 18 99/64 (76) 94 Simple Mask 6 03/27/17 19:30 101 20 96/61 (73) 96 Simple Mask 6 03/27/17 19:15 100 20 103/64 (77) 95 Simple Mask 6 03/27/17 19:00 100.1 95 14 106/65 (79) 95 Simple Mask 6 03/27/17 18:59 95 106/65 03/27/17 16:56 104 03/27/17 16:55 94 Nasal Cannula 4.00 03/27/17 16:30 103.3 106 25 107/65 (79) 100 03/27/17 16:05 97 15.00 03/27/17 11:55 99.5 97 16 85/66 (72) 93 03/27/17 11:43 95 03/27/17 07:30 98.1 90 20 118/74 (89) 94 03/27/17 03:30 97 16 135/77 (96) 92 Nasal Cannula 2.00 03/27/17 01:50 90 16 123/72 (89) 97 Room Air 03/26/17 21:45 99.5 102 20 111/62 (78) 97 Room Air Physical Exam GENERAL: Middle-aged female, lying in bed in severe distress HEENT: Normocephalic. Atraumatic. Pupils equal, round, reactive, conjugate. Mucous membranes are moist NECK: Trachea is midline. There is no JVD. CHEST: Tachypneic. Equal chest rise. Clear to auscultation CARDIOVASCULAR: Tachycardic rate, regular rhythm. Hypotensive with systolics in the 80s. ABDOMEN: Soft, nontender, nondistended. No guarding. MUSCULOSKELETAL: Pulses 2+. No peripheral edema. NEUROLOGICAL: RASS -2. Arousing from sedation. No focal deficits. Laboratory Laboratory Tests Test 03/27/17 02:15 03/27/17 02:40 03/27/17 04:00 03/27/17 12:28 White Blood Count 15.8 Red Blood Count 3.46 Hemoglobin 11.5 Hematocrit 33.4 Mean Corpuscular Volume 96.7 Mean Corpuscular Hemoglobin 33.2 Mean Corpuscular Hemoglobin Concent 34.4 Red Cell Distribution Width 13.9 Platelet Count 286 Mean Platelet Volume 7.1 Neutrophils (%) (Auto) 69.7 Lymphocytes (%) (Auto) 20.6 Monocytes (%) (Auto) 9.0 Eosinophils (%) (Auto) 0.1 Basophils (%) (Auto) 0.6 Neutrophils # (Auto) 11.0 Lymphocytes # (Auto) 3.2 Monocytes # (Auto) 1.4 Eosinophils # (Auto) 0.0 Basophils # (Auto) 0.1 CBC Comment DIFF FINAL Differential Comment Blood Urea Nitrogen 23 Creatinine 0.95 Random Glucose 113 Total Protein 7.7 Albumin 3.2 Calcium Level 8.9 Alkaline Phosphatase 82 Aspartate Amino Transf (AST/SGOT) 14 Alanine Aminotransferase (ALT/SGPT) 18 Total Bilirubin 0.3 Sodium Level 136 Potassium Level 3.6 Chloride Level 104 Carbon Dioxide Level 21.6 Anion Gap 10 Estimat Glomerular Filtration Rate 60 Lipase 83 Urine Color YELLOW Urine Turbidity CLOUDY Urine pH 6.0 Urine Specific [place] 1.024 Urine Protein 30 Urine Glucose (UA) NEG Urine Ketones NEG Urine Occult Blood MOD Urine Nitrite NEG Urine Bilirubin NEG Urine Urobilinogen LESS THAN 2.0 Urine Leukocyte Esterase LARGE Urine RBC 19 Urine WBC Urine WBC Clumps FEW Urine Squamous Epithelial Cells 1 Urine Bacteria RARE Urine Mucus FEW Microscopic Urinalysis Comment CULTURE INDICATED Lactic Acid Level 0.7 Prothrombin Time 11.6 Prothromb Time International Ratio 1.0 Activated Partial Thromboplast Time 33.6 Date/Time Source Procedure Growth Status 03/27/17 03:50 Blood Peripheral Aerobic Blood Culture Pending Received 03/27/17 03:50 Blood Peripheral Anaerobic Blood Culture Pending Received 03/27/17 15:08 Fluid Other Gram Stain Pending Received 03/27/17 15:08 Fluid Other Body Fluid Culture Pending Received 03/27/17 02:40 Urine Clean Catch Urine Culture Pending Received Result Diagram: 03/27/1721403/27/17 021 Imaging Last Impressions Abdomen/Pelvis CT 03/27/17 0208 Signed Impressions: Service Date/Time: Monday, March 27, 2017 03:00 - CONCLUSION: 1. There is a left staghorn calculus in the renal pelvis causing moderate to severe left hydronephrosis and inflammatory changes of the renal pelvis and proximal left ureter. 2. There are additional nonobstructing stones in the left lower pole collecting system measuring up to 14 mm. Joselo Castro MD Lumbar Spine CT 03/27/17 0000 Signed Impressions: Service Date/Time: Monday, March 27, 2017 03:00 - CONCLUSION: 1. Mild spinal canal stenosis at L3-L4 secondary to disc bulge and facet arthrosis. 2. Postsurgical changes at L4-S1, as above. Joselo Castro MD Assessment and Plan Assessment and Plan Assessment: 56yF with obstructed infected renal calculus and hydronephrosis now with acute septic shock secondary to likely bacteremia secondary to percutaneous nephrostomy tube placement. I remained at bedside and gave the patient an additional 2L NS bolus iv. Also gave a dose of iv acetaminophen. She is currently on abx regimen which is broad spectrum, and this was continued. Her blood pressure improved and stayed above map > 65 mmHg. She was then taken for urgent cystoscopy with stent placement. She remained critically ill for the duration of the time I spent in management of her hemodynamics and septic shock. Septic Shock Obstructing Ureteral calculus Urinary tract infection Plan: - admit to ICU and watch overnight. typically once source control is obtained, sepsis is rapidly improved, and she may regain significant end-organ function by tomorrow - continue abx - tylenol for fever - wean fio2 for spo2 > 90% - if patient continues to improve on pathway, could leave ICU in the AM and transition back to hospitalist service. This patient remains critically ill with one or more organ systems which are or may become a threat to life. I have spent in excess of 42 minutes discontinuously in the care and management of this patient. This time is exclusive of procedures, and includes, but is not limited to, evaluation of the patient, review of the medical record, discussions with family, consultants, nursing staff, or respiratory therapy, and documentation in the medical record. Carlo Lemus MD Mar 27, 2017 20:35
[2017-03-28] VITALS (8 sets, daily range): BP systolic 92–120; BP diastolic 53–69; PULSE 86–94; RESP 18–30; TEMP 96.8–100.3; O2SAT 92–99
[2017-03-28] MEDS: SODIUM CHLOR 0.9% 1000 ML INJ 1,000 ML IV SCH ×3 (00:01→15:26)
[2017-03-28] MEDS: CIPROFLOXACIN 400 MG PREMIX 200 ML IV SCH ×2 (04:09→15:26)
[2017-03-28 05:11] LABS: BASOPHIL % 0.2 % (0.0-2.0); HEMATOCRIT 31.9 % (35.0-46.0); HEMO FLAGS DIFF FINAL; LYMPH % 3.8 % (9.0-44.0); LYMPHOCYTE # 0.7 TH/MM3 (1.0-4.8); MEAN CELL VOLUME 99.5 FL (80.0-100.0); MEAN CORPUSCULAR HEMOGLOBIN 32.5 PG (27.0-34.0); MEAN CORPUSCULAR HGB CONC 32.7 % (32.0-36.0); MONO % 2.9 % (0.0-8.0); NEUT % 93.1 % (16.0-70.0); PLATELET COUNT 267 TH/MM3 (150-450); RED BLOOD COUNT 3.21 MIL/MM3 (4.00-5.30); RED CELL DISTRIBUTION WIDTH 14.3 % (11.6-17.2); WHITE BLOOD COUNT 19.3 TH/MM3 (4.0-11.0)
[2017-03-28 05:45] LABS: BICARBONATE 20.6 MEQ/L (21.0-32.0); POTASSIUM 3.8 MEQ/L (3.5-5.1)
[2017-03-28] MEDS: HYDROmorphone HCL PF 1 MG/ML VIAL IV PUSH PRN ×3 (06:11→20:55)
[2017-03-28] MEDS: LEVOTHYROXINE SODIUM 125 MCG TAB PO SCH (06:34)
[2017-03-28] MEDS: buPROPion HCL 150 MG SUSTAINED RELEASE TAB PO SCH ×2 (09:00→20:47)
[2017-03-28] MEDS: SODIUM CHLORIDE 0.9% FLUSH 10 ML FLUSH IV FLUSH SCH ×2 (09:00→20:46)
[2017-03-28] MEDS: PANTOPRAZOLE SOD 20 MG DELAYED RELEASE TAB PO SCH (09:00)
[2017-03-28] MEDS: GENTAMICIN 80 MG PREMIX 100 ML IV SCH ×2 (10:00→17:57)
[2017-03-28] MEDS ORDERED: SODIUM CHLORID 0.9% 500 ML INJ 500 ML IV ONE (15:45)
[2017-03-28] MEDS ORDERED: Vancomycin Consult Pharmacy 1 EA OTHER SCH (15:45)
[2017-03-28] MEDS ORDERED: SODIUM CHLOR 0.9% 250 ML INJ 250 ML IV ONE (16:00)
--- NOTE | 2017-03-28 16:06 | HHI.PR ---
Subjective Remarks Follow up on urinary obstruction with hydronephrosis status post cystoscopy procedure complicated with septic shock patient transferred to the ICU then transferred back to our service Today Patient looks very tired and fatigued Stated she has a headache, earlier she had a fever 100.3, blood pressure was in the 90s, bolus of normal saline ordered 250, blood culture positive for gram positive cocci/staph aureus Patient on Cipro and gentamicin by Dr. Melo, I will add a dose of Vanco and consult ID Objective Vitals Vital Signs Date Time Temp Pulse Resp B/P (MAP) Pulse Ox O2 Delivery O2 Flow Rate FiO2 03/28/17 12:00 100.3 94 30 97/60 (72) 96 03/28/17 12:00 94 03/28/17 08:00 99.4 92 21 92/53 (66) 96 03/28/17 07:00 92 03/28/17 07:00 98 Simple Mask 3.00 03/28/17 04:00 98.9 86 22 120/69 (86) 97 03/28/17 00:00 98.2 90 18 102/59 (73) 95 03/27/17 23:00 94 03/27/17 20:47 97 Simple Mask 6.00 03/27/17 20:00 99.5 98 19 90/60 (70) 95 03/27/17 19:55 98.6 94 14 94 Simple Mask 6 03/27/17 19:45 99 18 99/64 (76) 94 Simple Mask 6 03/27/17 19:30 101 20 96/61 (73) 96 Simple Mask 6 03/27/17 19:15 100 20 103/64 (77) 95 Simple Mask 6 03/27/17 19:00 100.1 95 14 106/65 (79) 95 Simple Mask 6 03/27/17 18:59 95 106/65 03/27/17 16:56 104 03/27/17 16:55 94 Nasal Cannula 4.00 03/27/17 16:30 103.3 106 25 107/65 (79) 100 03/27/17 16:05 97 15.00 I/O 03/27/17 03/27/17 03/27/17 03/28/17 03/28/17 03/28/17 07:00 15:00 23:00 07:00 15:00 23:00 Intake Total 1300 ml 1000 ml 845 ml Output Total 0 ml 0 ml 1650 ml Balance 1300 ml 0 ml 1000 ml -805 ml Intake Oral 0 ml IV Total 1300 ml 845 ml Other 1000 ml Output Urine Total 0 ml 0 ml 1650 ml Result Diagram: 03/28/173 03/28/17452 Objective Remarks GENERAL: This is a well-nourished, well-developed patient, in no apparent distress. SKIN: No rashes, warm and dry HEAD: Atraumatic. Normocephalic. EYES: Pupils equal round and reactive. Extraocular motions intact. No scleral icterus. ENT: Nose without bleeding, or drainage, Airway patent. NECK: Trachea midline. Supple CARDIOVASCULAR: Regular rate and rhythm without murmurs, gallops, or rubs. RESPIRATORY: Fair air entry bilaterally. No wheezes, rales, or rhonchi. GASTROINTESTINAL: Abdomen soft, non-tender, nondistended. Positive bowel sounds MUSCULOSKELETAL: Extremities without clubbing, cyanosis, or edema. Pedal pulses appreciated NEUROLOGICAL: Awake and alert. Moves all extremity. Normal speech.no focal neurological deficit A/P Problem List: (1) Pyelonephritis ICD Code: N12 - Tubulo-interstitial nephritis, not specified as acute or chronic Status: Acute (2) Hydronephrosis ICD Code: N13.30 - Unspecified hydronephrosis Status: Acute (3) Kidney stone ICD Code: N20.0 - Calculus of kidney Status: Acute Assessment and Plan 56yF with obstructed infected renal calculus and hydronephrosis went for cystoscopy and stent placement then complicated with acute septic shock secondary to likely bacteremia secondary to percutaneous nephrostomy tube placement. Patient transferred to ICU and yeast stacker was consulted yesterday, I discussed with Dr. Melo this morning he transferred patient back to hospitalist service she stabilized Septic Shock due to urine sepsis>> systolic blood pressure still 90s with increased heart rate above 100 Bacteremia mostly staph aureus, gram-positive cocci Obstructing Ureteral calculus Urinary tract infection Plan: -Continue monitoring in ICU systolic blood pressure still below 100>> iv fluid bolus with maintenance, check lactic acid - continue abx on Cipro and gentle iv patient allergic to amoxicillin, I will add a dose of Vanco and consult ID - tylenol for fever - wean fio2 for spo2 > 90% -Iv fluid Problem Qualifiers (1) Hydronephrosis: Qualified Codes: N13.2 - Hydronephrosis with renal and ureteral calculous obstruction Igor Carranza MD Mar 28, 2017 16:06
[2017-03-28] MEDS ORDERED: VANCOMYCIN INJ 1,251 MG in SODIUM CHLORID 0.9% 500 ML INJ 500 ML IV SCH (17:00)
--- NOTE | 2017-03-28 18:05 | PD.CONS ---
History of Present Illness Service Infectious Disease Consult Requested By Dr Leyla Carranza Reason for Consult Evaluate patient with (+) BC and UC with Staph aureus Primary Care Physician Quirino Garcia MD Diagnoses: History of Present Illness Patient seen and examined. Records reviewed. Patient is a 56-year-old female, presented to the hospital with 1 day history of abdominal pain. She apparently started having problem in her back which is mostly on the left side on the day prior to admission, and then it started going to the front area. There was no nausea or vomiting, no fever or chills. Patient denies any urinary complaints. She has had prior back pain related to her injury and surgery, but this is different than her usual back pain. Evaluation in the ED showed a CAT scan with a large left staghorn calculus causing significant hydronephrosis and there is also stranding on the left kidney. Patient was evaluated by urology. She had placement of left percutaneous nephrostomy, and they tried putting in a tubing but it was successful. She subsequently underwent cystoscopy and placement of a long ureteric stent. She has been having intermittent fevers. She was initially hypotensive, and received fluid bolus with improvement in her blood pressure. Her blood culture and urine cultures are all growing staph aureus. Infectious disease consultation has been requested to evaluate the patient Review of Systems Constitutional: COMPLAINS OF: Fever, Chills Eyes: DENIES: Eye pain Ears, nose, mouth, throat: DENIES: Nasal discharge, Oral lesions, Throat pain, Ear Pain, Sinus Pain Respiratory: DENIES: Cough, Shortness of breath Cardiovascular: DENIES: Chest pain, Palpitations Gastrointestinal: COMPLAINS OF: Abdominal pain, DENIES: Diarrhea, Nausea, Vomiting, Difficulty Swallowing Genitourinary: DENIES: Urgency, Hematuria, Dysuria Musculoskeletal: COMPLAINS OF: Back pain, DENIES: Joint pain, Neck pain Integumentary: DENIES: Rash Neurologic: COMPLAINS OF: Headache Psychiatric: DENIES: Confusion, Hallucinations Past Family Social History Allergies: Coded Allergies: amoxicillin (Verified Allergy, Intermediate, hives, 03/27/17) Past Medical History hypothyroid Hypertension Hyperlipidemia Depression Anxiety Nerve damage Back pain Past Surgical History C section x 3 Back surgery Active Ordered Medications Tylenol Wellbutrin Cipro Gentamicin Dilaudid Synthroid Zofran Vancomycin Family History Not contributory Social History Lives with her 2 grown children Denies smoking Denies alcohol abuse Denies illicit drugs Physical Exam Vital Signs Vital Signs Date Time Temp Pulse Resp B/P (MAP) Pulse Ox O2 Delivery O2 Flow Rate FiO2 03/28/17 15:00 90 03/28/17 12:00 100.3 94 30 97/60 (72) 96 03/28/17 12:00 94 03/28/17 08:00 99.4 92 21 92/53 (66) 96 03/28/17 07:00 92 03/28/17 07:00 98 Simple Mask 3.00 03/28/17 04:00 98.9 86 22 120/69 (86) 97 03/28/17 00:00 98.2 90 18 102/59 (73) 95 03/27/17 23:00 94 03/27/17 20:47 97 Simple Mask 6.00 03/27/17 20:00 99.5 98 19 90/60 (70) 95 03/27/17 19:55 98.6 94 14 94 Simple Mask 6 03/27/17 19:45 99 18 99/64 (76) 94 Simple Mask 6 03/27/17 19:30 101 20 96/61 (73) 96 Simple Mask 6 03/27/17 19:15 100 20 103/64 (77) 95 Simple Mask 6 03/27/17 19:00 100.1 95 14 106/65 (79) 95 Simple Mask 6 03/27/17 18:59 95 106/65 Physical Exam GENERAL: Patient is a well-nourished, well-developed female, awake and alert , not in respiratory distress. SKIN: Warm and dry. No generalized rash, no ecchymoses and no evidence of embolic lesions. HEAD: Atraumatic. Normocephalic. No temporal wasting, or tenderness. EYES: [place] conjunctiva. No petechia or hemorrhage. Pupils equal, round and reactive to light. Extraocular movements full and intact. No scleral icterus. No injection or drainage. EARS, NOSE AND THROAT: Nose without bleeding or purulent nasal discharge. No sinus tenderness. Mucous membranes pink and moist. No oral lesions noted. No exudate. No oral thrush. NECK: Trachea midline. Supple and not tender, no meningeal signs CARDIOVASCULAR: Regular rate and rhythm. No murmurs, rubs or gallops heard RESPIRATORY: Clear to auscultation. Breath sounds equal bilaterally. No rales , wheezing or rhonchi ABDOMEN: Soft, nondistended. Bowel sounds present and normoactive. Has diffuse abdominal tenderness. No guarding. No rebound. No organomegaly. BACK: Left percutaneous nephrostomy in place, with blood-tinged urine EXTREMITIES: No clubbing, cyanosis, or edema.No joint effusion, has good ROM. No calf tenderness. Well perfused and warm. NEUROLOGICAL: Awake and alert. Cranial nerves grossly intact. Motor grossly within normal limits. PSYCHIATRIC: Normal affect, calm and cooperative. LINE: No evidence of infection Laboratory Laboratory Tests Test 03/28/17 04:53 White Blood Count 19.3 Red Blood Count 3.21 Hemoglobin 10.4 Hematocrit 31.9 Mean Corpuscular Volume 99.5 Mean Corpuscular Hemoglobin 32.5 Mean Corpuscular Hemoglobin Concent 32.7 Red Cell Distribution Width 14.3 Platelet Count 267 Mean Platelet Volume 6.8 Neutrophils (%) (Auto) 93.1 Lymphocytes (%) (Auto) 3.8 Monocytes (%) (Auto) 2.9 Eosinophils (%) (Auto) 0.0 Basophils (%) (Auto) 0.2 Neutrophils # (Auto) 18.0 Lymphocytes # (Auto) 0.7 Monocytes # (Auto) 0.6 Eosinophils # (Auto) 0.0 Basophils # (Auto) 0.0 CBC Comment DIFF FINAL Differential Comment Blood Urea Nitrogen 11 Creatinine 0.70 Random Glucose 123 Calcium Level 7.9 Sodium Level 142 Potassium Level 3.8 Chloride Level 110 Carbon Dioxide Level 20.6 Anion Gap 11 Estimat Glomerular Filtration Rate 86 Date/Time Source Procedure Growth Status 03/27/17 03:50 Blood Peripheral Aerobic Blood Culture - Preliminary NO GROWTH IN 1 DAY Resulted 03/27/17 03:50 Anaerobic Blood Culture - Preliminary Gram Positive Cocci Resulted 03/27/17 15:08 Fluid Other Gram Stain - Final Resulted 03/27/17 15:08 Body Fluid Culture - Preliminary Staphylococcus Aureus Resulted 03/27/17 02:40 Urine Clean Catch Urine Culture - Preliminary Staphylococcus Aureus Resulted Result Diagram: 03/28/17 0453 03/28/17 0453 Imaging RADIOLOGY STUDIES/FILMS REVIEWED Last Impressions Abdomen/Pelvis CT 03/27/17 0208 Signed Impressions: Service Date/Time: Monday, March 27, 2017 03:00 - CONCLUSION: 1. There is a left staghorn calculus in the renal pelvis causing moderate to severe left hydronephrosis and inflammatory changes of the renal pelvis and proximal left ureter. 2. There are additional nonobstructing stones in the left lower pole collecting system measuring up to 14 mm. Joselo Castro MD Lumbar Spine CT 03/27/17 0000 Signed Impressions: Service Date/Time: Thursday, March 27, 2017 03:00 - CONCLUSION: 1. Mild spinal canal stenosis at L3-L4 secondary to disc bulge and facet arthrosis. 2. Postsurgical changes at L4-S1, as above. Joselo Castro MD Assessment and Plan Assessment and Plan IMPRESSION Urosepsis, due to complicated UTI, has obstructing staghorn calculus Staph aureus sepsis, and UTI - not a common uropathoge - R/O endovascular source RECOMMENDATION Repeat blood culture to document clearing Echocardiogram to evaluate the valves Follow culture and adjust antibiotics Continue Cipro for now Continue IV Vanco, if not MRSA, I will stop Vanco Add cefazolin for MSSA coverage Stop gentamicin Monitor progress I will determine course of treatment once workup is completed I will follow along with you. Thank you for this consultation Discussed Condition With Discussed with RN Plan to the patient Inna Healy MD Mar 28, 2017 18:05
[2017-03-28] MEDS: VANCOMYCIN 1,000 MG/NS 250 ML IV SCH ×2 (19:19)
[2017-03-28] MEDS: ceFAZolin 2 GM PREMIX 50 ML IV SCH (20:48)
[2017-03-29] VITALS (7 sets, daily range): BP systolic 104–126; BP diastolic 57–69; PULSE 83–95; RESP 16–20; TEMP 97.4–100.8; O2SAT 93–96
[2017-03-29] MEDS: ceFAZolin 2 GM PREMIX 50 ML IV SCH ×3 (03:54→20:25)
[2017-03-29] MEDS ORDERED: MORPHINE SULFATE 4 MG/ML INJ IV PUSH ONE (04:15)
[2017-03-29] MEDS: CIPROFLOXACIN 400 MG PREMIX 200 ML IV SCH (04:27)
[2017-03-29] MEDS: LEVOTHYROXINE SODIUM 125 MCG TAB PO SCH (05:28)
[2017-03-29] MEDS: SODIUM CHLOR 0.9% 1000 ML INJ 1,000 ML IV SCH ×2 (05:29→17:06)
[2017-03-29] MEDS: VANCOMYCIN 1,000 MG/NS 250 ML IV SCH ×2 (05:29)
--- NOTE | 2017-03-29 08:55 | EKG ---
Date Performed: 03/29/2017 Time Performed: 04:26:18 PTAGE: 56 years EKG: Sinus rhythm . Normal ECG PREVIOUS TRACING : 03/26/2017 13.20 DOCTOR: Marcelo Cornell Interpretating Date/Time 03/29/2017 08:54:53
[2017-03-29] MEDS: SODIUM CHLORIDE 0.9% FLUSH 10 ML FLUSH IV FLUSH SCH ×2 (09:00→20:25)
[2017-03-29] MEDS: PANTOPRAZOLE SOD 20 MG DELAYED RELEASE TAB PO SCH (09:35)
[2017-03-29] MEDS: buPROPion HCL 150 MG SUSTAINED RELEASE TAB PO SCH ×2 (09:35→20:25)
[2017-03-29] MEDS: HYDROmorphone HCL PF 1 MG/ML VIAL IV PUSH PRN ×3 (09:46→20:25)
--- NOTE | 2017-03-29 10:54 | HHI.PR ---
Subjective Remarks Patient seen and examined Had some atypical chest pain last night with borderline troponins No change in EKG States she is congested today will get incentive spirometry continue on antibiotics per infectious disease Discussed with patient and RN's Objective Vitals Vital Signs Date Time Temp Pulse Resp B/P (MAP) Pulse Ox O2 Delivery O2 Flow Rate FiO2 03/29/17 08:00 98.9 91 16 114/61 (78) 93 03/29/17 04:14 18 03/29/17 04:00 99.7 94 20 104/59 (74) 95 03/29/17 00:11 98.9 83 19 113/63 (80) 93 03/28/17 21:25 20 03/28/17 20:48 Nasal Cannula 2.00 03/28/17 20:00 96.8 92 20 118/62 (80) 92 03/28/17 16:00 100.0 88 22 119/68 (85) 99 03/28/17 15:00 90 03/28/17 12:00 100.3 94 30 97/60 (72) 96 03/28/17 12:00 94 I/O 03/28/17 03/28/17 03/28/17 03/29/17 03/29/17 03/29/17 07:00 15:00 23:00 07:00 15:00 23:00 Intake Total 845 ml 850 ml 500 ml Output Total 1650 ml 1450 ml 1900 ml Balance -805 ml -600 ml -1400 ml Intake Oral 0 ml 0 ml IV Total 845 ml 850 ml 500 ml Output Urine Total 1650 ml 1150 ml 1600 ml Drainage Total 300 ml 300 ml # Bowel Movements 0 0 Result Diagram: 03/28/17 0453 03/28/17 0453 Other Results Laboratory Tests Test 03/27/17 02:15 03/27/17 02:40 03/27/17 04:00 03/27/17 12:28 White Blood Count 15.8 TH/MM3 Red Blood Count 3.46 MIL/MM3 Hemoglobin 11.5 GM/DL Hematocrit 33.4 % Mean Corpuscular Volume 96.7 FL Mean Corpuscular Hemoglobin 33.2 PG Mean Corpuscular Hemoglobin Concent 34.4 % Red Cell Distribution Width 13.9 % Platelet Count 286 TH/MM3 Mean Platelet Volume 7.1 FL Neutrophils (%) (Auto) 69.7 % Lymphocytes (%) (Auto) 20.6 % Monocytes (%) (Auto) 9.0 % Eosinophils (%) (Auto) 0.1 % Basophils (%) (Auto) 0.6 % Neutrophils # (Auto) 11.0 TH/MM3 Lymphocytes # (Auto) 3.2 TH/MM3 Monocytes # (Auto) 1.4 TH/MM3 Eosinophils # (Auto) 0.0 TH/MM3 Basophils # (Auto) 0.1 TH/MM3 CBC Comment DIFF FINAL Differential Comment Blood Urea Nitrogen 23 MG/DL Creatinine 0.95 MG/DL Random Glucose 113 MG/DL Total Protein 7.7 GM/DL Albumin 3.2 GM/DL Calcium Level 8.9 MG/DL Alkaline Phosphatase 82 U/L Aspartate Amino Transf (AST/SGOT) 14 U/L Alanine Aminotransferase (ALT/SGPT) 18 U/L Total Bilirubin 0.3 MG/DL Sodium Level 136 MEQ/L Potassium Level 3.6 MEQ/L Chloride Level 104 MEQ/L Carbon Dioxide Level 21.6 MEQ/L Anion Gap 10 MEQ/L Estimat Glomerular Filtration Rate 60 ML/MIN Lipase 83 U/L Urine Color YELLOW Urine Turbidity CLOUDY Urine pH 6.0 Urine Specific [place] 1.024 Urine Protein 30 mg/dL Urine Glucose (UA) NEG mg/dL Urine Ketones NEG mg/dL Urine Occult Blood MOD Urine Nitrite NEG Urine Bilirubin NEG Urine Urobilinogen LESS THAN 2.0 MG/DL Urine Leukocyte Esterase LARGE Urine RBC 19 /hpf Urine WBC /hpf Urine WBC Clumps FEW Urine Squamous Epithelial Cells 1 /hpf Urine Bacteria RARE /hpf Urine Mucus FEW /lpf Microscopic Urinalysis Comment CULTURE INDICATED Lactic Acid Level 0.7 mmol/L Prothrombin Time 11.6 SEC Prothromb Time International Ratio 1.0 RATIO Activated Partial Thromboplast Time 33.6 SEC Test 03/28/17 04:53 03/28/17 19:28 03/29/17 05:40 White Blood Count 19.3 TH/MM3 Red Blood Count 3.21 MIL/MM3 Hemoglobin 10.4 GM/DL Hematocrit 31.9 % Mean Corpuscular Volume 99.5 FL Mean Corpuscular Hemoglobin 32.5 PG Mean Corpuscular Hemoglobin Concent 32.7 % Red Cell Distribution Width 14.3 % Platelet Count 267 TH/MM3 Mean Platelet Volume 6.8 FL Neutrophils (%) (Auto) 93.1 % Lymphocytes (%) (Auto) 3.8 % Monocytes (%) (Auto) 2.9 % Eosinophils (%) (Auto) 0.0 % Basophils (%) (Auto) 0.2 % Neutrophils # (Auto) 18.0 TH/MM3 Lymphocytes # (Auto) 0.7 TH/MM3 Monocytes # (Auto) 0.6 TH/MM3 Eosinophils # (Auto) 0.0 TH/MM3 Basophils # (Auto) 0.0 TH/MM3 CBC Comment DIFF FINAL Differential Comment Blood Urea Nitrogen 11 MG/DL Creatinine 0.70 MG/DL Random Glucose 123 MG/DL Calcium Level 7.9 MG/DL Sodium Level 142 MEQ/L Potassium Level 3.8 MEQ/L Chloride Level 110 MEQ/L Carbon Dioxide Level 20.6 MEQ/L Anion Gap 11 MEQ/L Estimat Glomerular Filtration Rate 86 ML/MIN Lactic Acid Level 1.0 mmol/L Troponin I 0.10 NG/ML Imaging Last Impressions Abdomen/Pelvis CT 03/27/17 0208 Signed Impressions: Service Date/Time: Monday, March 27, 2017 03:00 - CONCLUSION: 1. There is a left staghorn calculus in the renal pelvis causing moderate to severe left hydronephrosis and inflammatory changes of the renal pelvis and proximal left ureter. 2. There are additional nonobstructing stones in the left lower pole collecting system measuring up to 14 mm. Joselo Castro MD Lumbar Spine CT 03/27/17 0000 Signed Impressions: Service Date/Time: Monday, March 27, 2017 03:00 - CONCLUSION: 1. Mild spinal canal stenosis at L3-L4 secondary to disc bulge and facet arthrosis. 2. Postsurgical changes at L4-S1, as above. Joselo Castro MD Objective Remarks GENERAL: Awake alert oriented talkative and cooperative SKIN: Warm and dry. HEAD: Atraumatic. Normocephalic. EYES: Pupils equal and round. No scleral icterus. No injection or drainage. ENT: No nasal bleeding or discharge. Mucous membranes pink and moist. Tongue is midline NECK: Trachea midline. No JVD. Supple CARDIOVASCULAR: Regular rate and rhythm. S1-S2 no S3 or S4 no heave or thrill or rub or gallop RESPIRATORY: No accessory muscle use. Clear to auscultation. Breath sounds equal bilaterally. GASTROINTESTINAL: Abdomen soft, non-tender, nondistended. Hepatic and splenic margins not palpable. Carreon catheter in place MUSCULOSKELETAL: Extremities without clubbing, cyanosis, or edema. No obvious deformities. NEUROLOGICAL: Awake and alert. No obvious cranial nerve deficits. Motor grossly within normal limits. Five out of 5 muscle strength in the arms and legs. Normal speech. PSYCHIATRIC: Appropriate mood and affect; insight and judgment normal. Procedures Cystoscopy and left retrograde stent insertion Date of Surgery: Mar 27, 2017 Preoperative Diagnosis: (1) Staghorn renal calculus (2) Hydronephrosis, left Postoperative Diagnosis: (1) Hydronephrosis, left (2) Staghorn renal calculus Procedure: Cystoscopy, left retrograde pyelogram, placement of left fci ureteral stent and left nephrostogram Post Procedure Progress Note Pre Procedure Diagnosis: (1) Pyelonephritis Post Procedure Diagnosis: (1) Pyelonephritis Procedure Date: Mar 27, 2017 Supervising Radiologist: Morro Pinon Proceduralist/Assist: Stephy Luciano, RT(R)(CV), Santiago Mandel RT(R), Giselle Alaniz RT(R) Anesthesia: Conscious Sedation Plan of Activity Patient to Unit: ROPU Patient Condition: Fair See PACS Report for procedural detail/treatment Drainage Procedure Procedure 1 Imaging Guidance: Fluoroscopy Side: Left Procedure Type: Nephrostomy Procedure: Evaluation (failed nephrostomy secondary to staghor, pyonephrosis with specimen sent to lab patient to [facility] for monitoring for sepsis) Medications and IVs Current Medications Morphine Sulfate (Morphine Inj) 4 mg ONCE ONCE IV PUSH Last administered on 02:35; Start 03/27/17 at 02:15; Stop 03/27/17 at 02:16; Status DC Ondansetron HCl (Zofran Inj) 4 mg ONCE ONCE IVP Last administered on 03/27/17 02:35; Start 03/27/17 at 02:15; Stop 03/27/17 at 02:16; Status DC Sodium Chloride 1,000 ml @ 1,000 mls/hr Q1H IV Last administered on 03/27/17 03:24; Start 03/27/17 at 02:36; Stop 03/27/17 at 03:35; Status DC Iohexol (Omnipaque 350 Inj) 100 ml STK-MED ONCE IVCONTRAST Last administered on 03/26/17 03:11; Start 03/26/17 at 03:11; Stop 03/27/17 at 03:11; Status DC Hydromorphone HCl (Dilaudid Pf Inj) 0.5 mg ONCE ONCE IV PUSH Last administered on 03/27/17 03:34; Start 03/27/17 at 03:30; Stop 03/27/17 at 03:31; Status DC Ceftriaxone Sodium 1000 mg/ Sodium Chloride 100 ml @ 200 mls/hr ONCE ONCE IV Last administered on 03/27/17 03:55; Start 03/27/17 at 03:45; Stop 03/27/17 at 04: 14; Status DC Ketorolac Tromethamine (Toradol Inj) 30 mg ONCE ONCE IV PUSH Last administered on 03/27/17 03:55; Start 03/27/17 at 03:45; Stop 03/27/17 at 03:46; Status DC Sodium Chloride 1,000 ml @ 100 mls/hr Q10H IV Last administered on 03/29/17 05 :29; Start 03/27/17 at 03:59 Sodium Chloride (NS Flush) 2 ml UNSCH PRN IV FLUSH FLUSH AFTER USING IV ACCESS ; Start 03/27/17 at 04:00 Sodium Chloride (NS Flush) 2 ml BID IV FLUSH Last administered on 03/28/17 09: 00; Start 03/27/17 at 09:00 Ondansetron HCl (Zofran Inj) 4 mg Q6H PRN IVP NAUSEA OR VOMITING; Start at 04:00 Naloxone HCl (Narcan Inj) 0.4 mg UNSCH PRN IV SEE LABEL COMMENTS; Start at 04:00 Hydromorphone HCl (Dilaudid Pf Inj) 0.5 mg Q4H PRN IV PUSH pain >5 Last administered on 03/29/17 09:46; Start 03/27/17 at 04:00 Ciprofloxacin/ Dextrose 200 ml @ 200 mls/hr Q12H IV Last administered on 04:27; Start 03/27/17 at 04:00 Bupropion HCl (Wellbutrin Sr) 150 mg Q12HR PO Last administered on 03/29/17 09: 35; Start 03/27/17 at 09:00 Levothyroxine Sodium (Synthroid) 125 mcg DAILY@0600 PO Last administered on 03/29 05:28; Start 03/27/17 at 06:00 Pantoprazole Sodium (Protonix) 20 mg DAILY PO Last administered on 03/29/17 09: 35; Start 03/27/17 at 09:00 Hydromorphone HCl (Dilaudid Pf Inj) 1 mg ONCE ONCE IV PUSH Last administered on 03/27/17 10:51; Start 03/27/17 at 10:45; Stop 03/27/17 at 10:46; Status DC Fentanyl Citrate (fentaNYL INJ) 200 mcg STK-MED ONCE .ROUTE Last administered on 03/27/17 13:32; Start 03/27/17 at 13:32; Stop 03/27/17 at 13:33; Status DC Midazolam HCl (Versed Inj) 2 mg STK-MED ONCE .ROUTE Last administered on 13:32; Start 03/27/17 at 13:32; Stop 03/27/17 at 13:33; Status DC Midazolam HCl (Versed Inj) 2 mg STK-MED ONCE .ROUTE Last administered on 13:32; Start 03/27/17 at 13:32; Stop 03/27/17 at 13:33; Status DC Levofloxacin/ Dextrose 100 ml @ As Directed STK-MED ONCE IV Last administered on 03/27/17 15:08; Start 03/27/17 at 15:08; Stop 03/27/17 at 15:09; Status DC Meperidine HCl (Demerol Inj) 50 mg STK-MED ONCE .ROUTE Last administered on 03/27 16:06; Start 03/27/17 at 16:06; Stop 03/27/17 at 16:07; Status DC Gentamicin Sulfate/Sodium Chloride 100 ml @ 200 mls/hr Q8H IV Last administered on 03/28/17 17:57; Start 03/27/17 at 17:00; Stop 03/28/17 at 18:07; Status DC Acetaminophen (Ofirmev 1000 Mg/ 100 ml Inj) 1,000 mg NOW ONCE IV Last administered on 03/27/17 16:37; Start 03/27/17 at 16:45; Stop 03/27/17 at 16:46; Status DC Acetaminophen (Tylenol) 650 mg Q6H PRN PO TEMPERATURE > 100.4 F; Start 03/27/17 at 16:45 Iohexol (Omnipaque 350 Inj) 40 ml STK-MED ONCE .XX Last administered on 18:37; Start 03/27/17 at 18:37; Stop 03/27/17 at 18:38; Status DC Norepinephrine Bitartrate (Levophed Inj) 4 mg STK-MED ONCE .ROUTE Last administered on 03/27/17 18:59; Start 03/27/17 at 18:59; Stop 03/27/17 at 19:00; Status DC Fentanyl Citrate (fentaNYL INJ) 100 mcg STK-MED ONCE .ROUTE ; Start 03/27/17 at 19:13; Stop 03/27/17 at 19:14; Status DC Miscellaneous Information ALL NURSING DEPARTME... UNSCH PRN .XX SEE LABEL COMMENTS; Start 03/27/17 at 19:05; Stop 03/28/17 at 19:04; Status DC Sodium Chloride 500 ml @ 500 mls/hr BOLUS ONCE IV ; Start 03/28/17 at 15:45; Stop 03/28/17 at 15:50; Status DC Pharmacy Profile Note 0 ml @ 0 mls/hr UNSCH OTHER ; Start 03/28/17 at 15:45 Vancomycin HCl 1251 mg/Sodium Chloride 512.51 ml @ 250 mls/ hr Q12H IV ; Start 03/28/17 at 17:00; Status Cancel Sodium Chloride 250 ml @ 250 mls/hr BOLUS ONCE IV Last administered on 15:55; Start 03/28/17 at 16:00; Stop 03/28/17 at 16:59; Status DC Vancomycin HCl 1000 mg/Sodium Chloride 250 ml @ 250 mls/hr Q12H IV Last administered on 03/29/17 05:29; Start 03/28/17 at 18:00 Miscellaneous Information SPECIFIC LAB TO BE ... ONCE ONCE .XX ; Start at 05:45; Stop 03/30/17 at 05:46 Cefazolin Sodium/ Dextrose 50 ml @ 100 mls/hr Q8H IV Last administered on 03:54; Start 03/28/17 at 20:00 Morphine Sulfate (Morphine Inj) 2 mg ONCE ONCE IV PUSH Last administered on t 04:09; Start 03/29/17 at 04:15; Stop 03/29/17 at 04:16; Status DC Urinary Catheter: Yes Carreon insert reason: Obstruction/Retention A/P Problem List: (1) Pyelonephritis ICD Code: N12 - Tubulo-interstitial nephritis, not specified as acute or chronic Status: Acute (2) Hydronephrosis ICD Code: N13.30 - Unspecified hydronephrosis Status: Acute (3) Kidney stone ICD Code: N20.0 - Calculus of kidney Status: Acute Assessment and Plan [id number] with obstructed infected renal calculus and hydronephrosis went for cystoscopy and stent placement then complicated with acute septic shock secondary to likely bacteremia secondary to percutaneous nephrostomy tube placement. Patient transferred to ICU and care connector was consulted yesterday, I discussed with Dr. Melo this morning he transferred patient back to hospitalist service she stabilized Septic Shock due to urine sepsis>> systolic blood pressure still 90s with increased heart rate above 100 Bacteremia mostly staph aureus, gram-positive cocci Obstructing Ureteral calculus Urinary tract infection Urosepsis Positive staghorn calculus Plan: -Continue monitoring in ICU systolic blood pressure still below 100>> iv fluid bolus with maintenance, check lactic acid--moved out of ICU - continue abx on per infectious disease - wean fio2 for spo2 > 90% -Iv fluid Incentive spirometry Echocardiogram per ID suggestion A.m. labs Discussed with patient and RN Problem Qualifiers (1) Hydronephrosis: Qualified Codes: N13.2 - Hydronephrosis with renal and ureteral calculous obstruction Ganesh Aguirre DO Mar 29, 2017 10:54
--- NOTE | 2017-03-29 11:57 | HHI.IDPN ---
Subjective Subjective Remarks Patient is a 56-year-old female, presented to the hospital with 1 day history of abdominal pain. She apparently started having problem in her back which is mostly on the left side on the day prior to admission, and then it started going to the front area. There was no nausea or vomiting, no fever or chills. Patient denies any urinary complaints. She has had prior back pain related to her injury and surgery, but this is different than her usual back pain. Evaluation in the ED showed a CAT scan with a large left staghorn calculus causing significant hydronephrosis and there is also stranding on the left kidney. Patient was evaluated by urology. She had placement of left percutaneous nephrostomy, and they tried putting in a tubing but it was successful. She subsequently underwent cystoscopy and placement of a long ureteric stent. She has been having intermittent fevers. She was initially hypotensive, and received fluid bolus with improvement in her blood pressure. Her blood culture and urine cultures are all growing staph aureus. Notes reviewed Temps ok Urine clearer BC and UC with MSSA Antibiotics Ancef Vancomcyin Cipro Lines PIV Past Medical History hypothyroid Hypertension Hyperlipidemia Depression Anxiety Nerve damage Back pain Past Surgical History C section x 3 Back surgery Allergies: Coded Allergies: amoxicillin (Verified Allergy, Intermediate, hives, 03/27/17) Objective . Vital Signs Date Time Temp Pulse Resp B/P (MAP) Pulse Ox O2 Delivery O2 Flow Rate FiO2 03/29/17 08:00 98.9 91 16 114/61 (78) 93 03/29/17 04:14 18 03/29/17 04:00 99.7 94 20 104/59 (74) 95 03/29/17 00:11 98.9 83 19 113/63 (80) 93 03/28/17 21:25 20 03/28/17 20:48 Nasal Cannula 2.00 03/28/17 20:00 96.8 92 20 118/62 (80) 92 03/28/17 16:00 100.0 88 22 119/68 (85) 99 03/28/17 15:00 90 03/28/17 12:00 100.3 94 30 97/60 (72) 96 03/28/17 12:00 94 . Laboratory Tests Test 03/28/17 04:53 White Blood Count 19.3 TH/MM3 Red Blood Count 3.21 MIL/MM3 Hemoglobin 10.4 GM/DL Hematocrit 31.9 % Mean Corpuscular Volume 99.5 FL Mean Corpuscular Hemoglobin 32.5 PG Mean Corpuscular Hemoglobin Concent 32.7 % Red Cell Distribution Width 14.3 % Platelet Count 267 TH/MM3 Mean Platelet Volume 6.8 FL Neutrophils (%) (Auto) 93.1 % Lymphocytes (%) (Auto) 3.8 % Monocytes (%) (Auto) 2.9 % Eosinophils (%) (Auto) 0.0 % Basophils (%) (Auto) 0.2 % Neutrophils # (Auto) 18.0 TH/MM3 Lymphocytes # (Auto) 0.7 TH/MM3 Monocytes # (Auto) 0.6 TH/MM3 Eosinophils # (Auto) 0.0 TH/MM3 Basophils # (Auto) 0.0 TH/MM3 CBC Comment DIFF FINAL Differential Comment Laboratory Tests Test 03/28/17 04:53 03/28/17 19:28 03/29/17 05:40 Blood Urea Nitrogen 11 MG/DL Creatinine 0.70 MG/DL Random Glucose 123 MG/DL Calcium Level 7.9 MG/DL Sodium Level 142 MEQ/L Potassium Level 3.8 MEQ/L Chloride Level 110 MEQ/L Carbon Dioxide Level 20.6 MEQ/L Anion Gap 11 MEQ/L Estimat Glomerular Filtration Rate 86 ML/MIN Lactic Acid Level 1.0 mmol/L Troponin I 0.10 NG/ML Microbiology Date/Time Source Procedure Growth Status 03/29/17 05:40 Blood Peripheral Aerobic Blood Culture Pending Received 03/29/17 05:40 Blood Peripheral Anaerobic Blood Culture Pending Received 03/28/17 19:28 Blood Peripheral Aerobic Blood Culture - Preliminary NO GROWTH IN 1 DAY Resulted 03/28/17 19:28 Blood Peripheral Anaerobic Blood Culture - Final QNS - SEE AEROBE REPORT Resulted 03/28/17 19:15 Blood Peripheral Aerobic Blood Culture - Preliminary NO GROWTH IN 1 DAY Resulted 03/28/17 19:15 Blood Peripheral Anaerobic Blood Culture - Final QNS - SEE AEROBE REPORT Resulted 03/27/17 03:50 Blood Peripheral Aerobic Blood Culture - Preliminary Gram Positive Cocci Resulted 03/27/17 03:50 Anaerobic Blood Culture - Preliminary Staphylococcus Aureus Resulted 03/27/17 03:50 Blood Peripheral Aerobic Blood Culture - Preliminary NO GROWTH IN 2 DAYS Resulted 03/27/17 03:50 Anaerobic Blood Culture - Preliminary Staphylococcus Aureus Resulted 03/27/17 15:08 Fluid Other Gram Stain - Final Complete 03/27/17 15:08 Body Fluid Culture - Final Staphylococcus Aureus Complete 03/27/17 02:40 Urine Clean Catch Urine Culture - Final Staphylococcus Aureus Staph Sp Coagulase Negative Complete 03/27/17 00:00 Urine Other Fungal Smear Pending Received 03/27/17 00:00 Urine Other Fungal Culture Pending Received 03/27/17 00:00 Urine Other Acid Fast Stain Pending Received 03/27/17 00:00 Urine Other Mycobacterial Culture Pending Received 03/27/17 00:00 Urine Other Urine Culture - Preliminary RESULTS PENDING Resulted Imaging Abdomen/Pelvis CT 03/27/17 0208 Signed Impressions: Service Date/Time: Monday, March 27, 2017 03:00 - CONCLUSION: 1. There is a left staghorn calculus in the renal pelvis causing moderate to severe left hydronephrosis and inflammatory changes of the renal pelvis and proximal left ureter. 2. There are additional nonobstructing stones in the left lower pole collecting system measuring up to 14 mm. Joselo Castro MD Lumbar Spine CT 03/27/17 0000 Signed Impressions: Service Date/Time: Monday, March 27, 2017 03:00 - CONCLUSION: 1. Mild spinal canal stenosis at L3-L4 secondary to disc bulge and facet arthrosis. 2. Postsurgical changes at L4-S1, as above. Joselo Castro MD Physical Exam GENERAL: awake and alert, not in respiratory distress. SKIN: Warm and dry. No generalized rash, no ecchymoses and no evidence of embolic lesions. HEAD: Atraumatic. Normocephalic. No temporal wasting, or tenderness. EYES: [place] conjunctiva. No petechia or hemorrhage. Pupils equal, round and reactive to light. Extraocular movements full and intact. No scleral icterus. No injection or drainage. EARS, NOSE AND THROAT: Nose without bleeding or purulent nasal discharge. Mucous membranes pink and moist. No oral lesions noted. NECK: Trachea midline. Supple and not tender, no meningeal signs CARDIOVASCULAR: Regular rate and rhythm. No murmurs, rubs or gallops heard RESPIRATORY: Clear to auscultation. Breath sounds equal bilaterally. No rales , wheezing or rhonchi ABDOMEN: Soft, nondistended. Bowel sounds present and normoactive. Has diffuse abdominal tenderness. No guarding. No rebound. No organomegaly. BACK: Left percutaneous nephrostomy in place, with clear yellow urine EXTREMITIES: No clubbing, cyanosis, or edema.No joint effusion, has good ROM. No calf tenderness. Well perfused and warm. NEUROLOGICAL: Awake and alert. Cranial nerves grossly intact. Motor grossly within normal limits. PSYCHIATRIC: Normal affect, calm and cooperative. LINE: No evidence of infection Assessment & Plan Remarks IMPRESSION Urosepsis, due to complicated UTI, has obstructing staghorn calculus Staph aureus sepsis, and UTI - not a common uropathogen - R/O endovascular source RECOMMENDATION Follow repeat BC Echocardiogram to evaluate the valves Continue Cipro for now, change to po Stop IV Vanco Continue Cefazolin for MSSA coverage Monitor progress D/W Dr Aguirre (HEPAS) Inna Healy MD Mar 29, 2017 11:57
[2017-03-29] MEDS: ONDANSETRON HCL 4 MG/2 ML VIAL IVP PRN (12:47)
[2017-03-29] MEDS: CIPROFLOXACIN 750 MG TAB PO SCH (20:24)
[2017-03-30] VITALS (7 sets, daily range): BP systolic 104–139; BP diastolic 59–80; PULSE 87–94; RESP 18–19; TEMP 98.6–99.7; O2SAT 95–97
[2017-03-30] MEDS: HYDROmorphone HCL PF 1 MG/ML VIAL IV PUSH PRN ×3 (01:04→20:19)
[2017-03-30] MEDS: ONDANSETRON HCL 4 MG/2 ML VIAL IVP PRN ×3 (01:06→20:19)
[2017-03-30] MEDS: SODIUM CHLOR 0.9% 1000 ML INJ 1,000 ML IV SCH ×3 (01:59→21:25)
[2017-03-30] MEDS: ceFAZolin 2 GM PREMIX 50 ML IV SCH ×3 (03:40→20:11)
[2017-03-30] MEDS: LEVOTHYROXINE SODIUM 125 MCG TAB PO SCH (05:35)
[2017-03-30] MEDS ORDERED: PHARMACY ORDERED LAB ONE (05:45)
[2017-03-30 06:22] LABS: AUTOMATED NEUTROPHIL # 9.4 TH/MM3 (1.8-7.7); BASOPHIL # 0.1 TH/MM3 (0-0.2); BASOPHIL % 0.5 % (0.0-2.0); EOSINOPHIL % 0.4 % (0.0-4.0); HEMATOCRIT 29.4 % (35.0-46.0); HEMO FLAGS DIFF FINAL; LYMPH % 10.3 % (9.0-44.0); LYMPHOCYTE # 1.2 TH/MM3 (1.0-4.8); MEAN CELL VOLUME 96.8 FL (80.0-100.0); MEAN CORPUSCULAR HEMOGLOBIN 33.2 PG (27.0-34.0); MEAN CORPUSCULAR HGB CONC 34.3 % (32.0-36.0); MONO % 7.5 % (0.0-8.0); NEUT % 81.3 % (16.0-70.0); PLATELET COUNT 314 TH/MM3 (150-450); RED BLOOD COUNT 3.04 MIL/MM3 (4.00-5.30); RED CELL DISTRIBUTION WIDTH 13.8 % (11.6-17.2); WHITE BLOOD COUNT 11.6 TH/MM3 (4.0-11.0)
[2017-03-30 06:51] LABS: ALKALINE PHOSPHATASE 81 U/L (45-117); ALT (GPT) 14 U/L (10-53); ANION GAP 11 MEQ/L (5-15); AST (GOT) 16 U/L (15-37); BICARBONATE 22.7 MEQ/L (21.0-32.0); BLOOD UREA NITROGEN 6 MG/DL (7-18); CHLORIDE 103 MEQ/L (98-107); CREATINE KINASE 108 U/L (26-192); FREE T4 1.55 NG/DL (0.76-1.46); GLOMERULAR FILTRATION RATE 147 ML/MIN (>89); MAGNESIUM 1.9 MG/DL (1.5-2.5); SODIUM (NA) 137 MEQ/L (136-145); TOTAL BILIRUBIN ADULT 0.3 MG/DL (0.2-1.0)
[2017-03-30 07:33] LABS: POTASSIUM 2.9 MEQ/L (3.5-5.1)
[2017-03-30] MEDS ORDERED: POTASSIUM CHLORIDE 10 MEQ CONTROLLED RELEASE TAB PO ONE ×2 (08:15→11:00)
[2017-03-30] MEDS: PANTOPRAZOLE SOD 20 MG DELAYED RELEASE TAB PO SCH (08:28)
[2017-03-30] MEDS: SODIUM CHLORIDE 0.9% FLUSH 10 ML FLUSH IV FLUSH SCH ×2 (08:28→20:07)
[2017-03-30] MEDS: CIPROFLOXACIN 750 MG TAB PO SCH ×2 (08:29→20:11)
[2017-03-30] MEDS: buPROPion HCL 150 MG SUSTAINED RELEASE TAB PO SCH ×2 (08:29→20:07)
--- NOTE | 2017-03-30 10:28 | HHI.IDPN ---
Subjective Subjective Remarks Patient is a 56-year-old female, presented to the hospital with 1 day history of abdominal pain. She apparently started having problem in her back which is mostly on the left side on the day prior to admission, and then it started going to the front area. There was no nausea or vomiting, no fever or chills. Patient denies any urinary complaints. She has had prior back pain related to her injury and surgery, but this is different than her usual back pain. Evaluation in the ED showed a CAT scan with a large left staghorn calculus causing significant hydronephrosis and there is also stranding on the left kidney. Patient was evaluated by urology. She had placement of left percutaneous nephrostomy, and they tried putting in a tubing but it was successful. She subsequently underwent cystoscopy and placement of a long ureteric stent. She has been having intermittent fevers. She was initially hypotensive, and received fluid bolus with improvement in her blood pressure. Her blood culture and urine cultures are all growing staph aureus. Notes reviewed Temps ok C/O mild [place] Back pain same Urine clear BC and UC with MSSA Echo pending No new (+) BC Antibiotics Ancef Cipro Lines PIV Past Medical History hypothyroid Hypertension Hyperlipidemia Depression Anxiety Nerve damage Back pain Past Surgical History C section x 3 Back surgery Allergies: Coded Allergies: amoxicillin (Verified Allergy, Intermediate, hives, 03/27/17) Objective . Vital Signs Date Time Temp Pulse Resp B/P (MAP) Pulse Ox O2 Delivery O2 Flow Rate FiO2 03/30/17 08:00 98.9 93 18 131/74 (93) 95 03/30/17 01:34 20 03/30/17 00:00 98.6 94 19 132/77 (95) 96 03/29/17 20:24 Nasal Cannula 2.00 03/29/17 20:00 98.7 91 19 109/57 (74) 93 03/29/17 16:54 96 Nasal Cannula 2.00 03/29/17 16:00 100.8 95 17 123/69 (87) 96 03/29/17 12:00 97.4 93 17 126/65 (85) 93 . Laboratory Tests Test 03/30/17 05:30 White Blood Count 11.6 TH/MM3 Red Blood Count 3.04 MIL/MM3 Hemoglobin 10.1 GM/DL Hematocrit 29.4 % Mean Corpuscular Volume 96.8 FL Mean Corpuscular Hemoglobin 33.2 PG Mean Corpuscular Hemoglobin Concent 34.3 % Red Cell Distribution Width 13.8 % Platelet Count 314 TH/MM3 Mean Platelet Volume 6.6 FL Neutrophils (%) (Auto) 81.3 % Lymphocytes (%) (Auto) 10.3 % Monocytes (%) (Auto) 7.5 % Eosinophils (%) (Auto) 0.4 % Basophils (%) (Auto) 0.5 % Neutrophils # (Auto) 9.4 TH/MM3 Lymphocytes # (Auto) 1.2 TH/MM3 Monocytes # (Auto) 0.9 TH/MM3 Eosinophils # (Auto) 0.0 TH/MM3 Basophils # (Auto) 0.1 TH/MM3 CBC Comment DIFF FINAL Differential Comment Laboratory Tests Test 03/28/17 19:28 03/29/17 05:40 03/29/17 13:45 03/30/17 05:30 Lactic Acid Level 1.0 mmol/L Troponin I 0.10 NG/ML 0.06 NG/ML 0.02 NG/ML Blood Urea Nitrogen 6 MG/DL Creatinine 0.44 MG/DL Random Glucose 91 MG/DL Total Protein 6.6 GM/DL Albumin 2.3 GM/DL Calcium Level 8.5 MG/DL Phosphorus Level 2.9 MG/DL Magnesium Level 1.9 MG/DL Alkaline Phosphatase 81 U/L Aspartate Amino Transf (AST/SGOT) 16 U/L Alanine Aminotransferase (ALT/SGPT) 14 U/L Total Bilirubin 0.3 MG/DL Sodium Level 137 MEQ/L Potassium Level 2.9 MEQ/L Chloride Level 103 MEQ/L Carbon Dioxide Level 22.7 MEQ/L Anion Gap 11 MEQ/L Estimat Glomerular Filtration Rate 147 ML/MIN Total Creatine Kinase 108 U/L Creatine Kinase MB 1.0 NG/ML Free Thyroxine 1.55 NG/DL Thyroid Stimulating Hormone 3rd Gen 0.787 uIU/ML Microbiology Date/Time Source Procedure Growth Status 03/29/17 05:40 Blood Peripheral Aerobic Blood Culture Pending Received 03/29/17 05:40 Blood Peripheral Anaerobic Blood Culture Pending Received 03/28/17 19:28 Blood Peripheral Aerobic Blood Culture - Preliminary NO GROWTH IN 1 DAY Resulted 03/28/17 19:28 Blood Peripheral Anaerobic Blood Culture - Final QNS - SEE AEROBE REPORT Resulted 03/28/17 19:15 Blood Peripheral Aerobic Blood Culture - Preliminary NO GROWTH IN 1 DAY Resulted 03/28/17 19:15 Blood Peripheral Anaerobic Blood Culture - Final QNS - SEE AEROBE REPORT Resulted 03/27/17 15:08 Fluid Other Gram Stain - Final Complete 03/27/17 15:08 Body Fluid Culture - Final Staphylococcus Aureus Complete Imaging Abdomen/Pelvis CT 03/27/17 0208 Signed Impressions: Service Date/Time: Monday, March 27, 2017 03:00 - CONCLUSION: 1. There is a left staghorn calculus in the renal pelvis causing moderate to severe left hydronephrosis and inflammatory changes of the renal pelvis and proximal left ureter. 2. There are additional nonobstructing stones in the left lower pole collecting system measuring up to 14 mm. Joselo Castro MD Lumbar Spine CT 03/27/17 0000 Signed Impressions: Service Date/Time: Monday, March 27, 2017 03:00 - CONCLUSION: 1. Mild spinal canal stenosis at L3-L4 secondary to disc bulge and facet arthrosis. 2. Postsurgical changes at L4-S1, as above. Joselo Castro MD Physical Exam GENERAL: awake and alert, not in respiratory distress. SKIN: Warm and dry. No generalized rash, no ecchymoses and no evidence of embolic lesions. HEAD: Atraumatic. Normocephalic. No temporal wasting, or tenderness. EYES: [place] conjunctiva. No petechia or hemorrhage. Pupils equal, round and reactive to light. Extraocular movements full and intact. No scleral icterus. No injection or drainage. EARS, NOSE AND THROAT: Nose without bleeding or purulent nasal discharge. Mucous membranes pink and moist. No oral lesions noted. NECK: Trachea midline. Supple and not tender, no meningeal signs CARDIOVASCULAR: Regular rate and rhythm. No murmurs, rubs or gallops heard RESPIRATORY: Clear to auscultation. Breath sounds equal bilaterally. No rales , wheezing or rhonchi ABDOMEN: Soft, nondistended. Bowel sounds present and normoactive. Has diffuse abdominal tenderness. No guarding. No rebound. No organomegaly. BACK: Left percutaneous nephrostomy in place, with clear yellow urine EXTREMITIES: No clubbing, cyanosis, or edema.No joint effusion, has good ROM. No calf tenderness. Well perfused and warm. NEUROLOGICAL: Awake and alert. Cranial nerves grossly intact. Motor grossly within normal limits. PSYCHIATRIC: Normal affect, calm and cooperative. LINE: No evidence of infection Assessment & Plan Remarks IMPRESSION Urosepsis, due to complicated UTI, has obstructing staghorn calculus Staph aureus sepsis, and UTI - not a common uropathogen - R/O endovascular source RECOMMENDATION Follow repeat BC Await echocardiogram to evaluate the valves Continue Cipro for now Continue Cefazolin for MSSA coverage Monitor progress Inna Healy MD Mar 30, 2017 10:28
[2017-03-30 11:39] LABS: HEMOGLOBIN A1a 1.2 %; HEMOGLOBIN A1b 1.6 %; HEMOGLOBIN P3 3.7 %
--- NOTE | 2017-03-30 11:56 | ECHRPT ---
Indication: EVAL FOR ENDOCARDITIS CONCLUSIONS Normal left ventricular size. Wall thickness is normal. [place] left ventricular systolic function. Ejection fraction 60-65%. No regional wall motion abnormalities are present. The left atrial size is mildly dilated. The right atrial size is mildly dilated. No atrial level shunt is demonstrated by color flow Doppler interrogation. The aortic root and proximal ascending aorta are not well visualized. Trace mitral valve regurgitation. No mitral valve stenosis. There is trace tricuspid valve regurgitation. There is estimated mild pulmonary hypertension present (range 40-50 mmHg). The pulmonary valve is not well visualized. No pulmonary valve regurgitation. The inferior vena cava is dilated. There is greater than 50% respiratory change in dimension of the inferior vena cava (normal). BP: 104 / 59 HR: 94 Rhythm: Sinus MEASUREMENTS (Male / Female) Normal Values Technical Quality:Fair 2D ECHO LV Diastolic Diameter PLAX 4.0 cm 4.2 - 5.9 / 3.9 - 5.3 cm LV Systolic Diameter PLAX 2.9 cm IVS Diastolic Thickness 0.9 cm 0.6 - 1.0 / 0.6 - 0.9 cm LVPW Diastolic Thickness 0.9 cm 0.6 - 1.0 / 0.6 - 0.9 cm LV Relative Wall Thickness 0.4 LVOT Diameter 2.1 cm Aortic Root Diameter 3.4 cm LA Systolic Diameter LX 2.5 cm 3.0 - 4.0 / 2.7 - 3.8 cm M-MODE AV Cusp Separation MM 2.0 cm DOPPLER AV Peak Velocity 145.0 cm/s AV Peak Gradient 8.4 mmHg AV Mean Gradient 4.0 mmHg AV Velocity Time Integral 24.1 cm LVOT Peak Velocity 109.0 cm/s LVOT Peak Gradient 4.8 mmHg LVOT Velocity Time Integral 19.0 cm LVOT Cardiac Index 3099.7 cm/minm AV Area Cont Eq vti 2.7 cm AV Area Cont Eq pk 2.6 cm Mitral E Point Velocity 105.0 cm/s Mitral A Point Velocity 104.0 cm/s Mitral E to A Ratio 1.0 LV E' Lateral Velocity 10.2 cm/s Mitral E to LV E' Lateral Ratio 10.3 LV E' Septal Velocity 10.9 cm/s Mitral E to LV E' Septal Ratio 9.6 TR Peak Velocity 278.0 cm/s TR Peak Gradient 30.9 mmHg PV Peak Velocity 70.7 cm/s PV Peak Gradient 2.0 mmHg FINDINGS LEFT VENTRICLE Normal left ventricular size. Wall thickness is normal. The left ventricular systolic function is normal with an estimated ejection fraction in the range of 60-65%. No regional wall motion abnormalities are present. RIGHT VENTRICLE Normal right ventricular size and systolic function. LEFT ATRIUM The left atrial size is mildly dilated. RIGHT ATRIUM The right atrial size is mildly dilated. ATRIAL SEPTUM No atrial level shunt is demonstrated by color flow Doppler interrogation. AORTA The aortic root and proximal ascending aorta are not well visualized. MITRAL VALVE Structurally normal mitral valve. Trace mitral valve regurgitation. No mitral valve stenosis. AORTIC VALVE Trileaflet aortic valve. No aortic valve stenosis or regurgitation. TRICUSPID VALVE Structurally normal tricuspid valve. There is trace tricuspid valve regurgitation. There is estimated mild pulmonary hypertension present (range 40-50 mmHg). PULMONARY VALVE The pulmonary valve is not well visualized. No pulmonary valve regurgitation. VESSELS The inferior vena cava is dilated. There is greater than 50% respiratory change in dimension of the inferior vena cava (normal). PERICARDIUM No pericardial effusion. Alejandro Trejo MD (Electronically Signed) Final Date:30 March 2017 11:55
--- NOTE | 2017-03-30 15:10 | HHI.PR ---
Subjective Remarks 03-29 Patient seen and examined Had some atypical chest pain last night with borderline troponins No change in EKG States she is congested today will get incentive spirometry continue on antibiotics per infectious disease Discussed with patient and RN's 03-30 advance diet from clears as tolerated AM LABS HAS INSOMNIA ADD AMBIEN MILD ABDOMINAL PAIN- MAY BE HUNGRY ADVANCE DIET HAD ECHO DW RN AND PT Objective Vitals Vital Signs Date Time Temp Pulse Resp B/P (MAP) Pulse Ox O2 Delivery O2 Flow Rate FiO2 03/30/17 12:00 98.6 87 18 120/67 (84) 96 03/30/17 11:14 97 Nasal Cannula 2.00 03/30/17 10:54 96 Nasal Cannula 2.00 03/30/17 08:00 98.9 93 18 131/74 (93) 95 03/30/17 08:00 Nasal Cannula 2.00 03/30/17 01:34 20 03/30/17 00:00 98.6 94 19 132/77 (95) 96 03/29/17 20:24 Nasal Cannula 2.00 03/29/17 20:00 98.7 91 19 109/57 (74) 93 03/29/17 16:54 96 Nasal Cannula 2.00 03/29/17 16:00 100.8 95 17 123/69 (87) 96 I/O 03/29/17 03/29/17 03/29/17 03/30/17 03/30/17 03/30/17 07:00 15:00 23:00 07:00 15:00 23:00 Intake Total 500 ml 50 ml 1340 ml 1340 ml Output Total 1900 ml 2650 ml 3300 ml Balance -1400 ml 50 ml -1310 ml -1960 ml Intake Oral 0 ml 240 ml 240 ml IV Total 500 ml 50 ml 1100 ml 1100 ml Output Urine Total 1600 ml 2650 ml 1900 ml Drainage Total 300 ml 1400 ml # Bowel Movements 0 0 Result Diagram: 03/30/17 0530 03/30/17 0530 Other Results Laboratory Tests Test 03/28/17 04:53 03/28/17 19:28 03/29/17 05:40 03/29/17 13:45 White Blood Count 19.3 TH/MM3 Red Blood Count 3.21 MIL/MM3 Hemoglobin 10.4 GM/DL Hematocrit 31.9 % Mean Corpuscular Volume 99.5 FL Mean Corpuscular Hemoglobin 32.5 PG Mean Corpuscular Hemoglobin Concent 32.7 % Red Cell Distribution Width 14.3 % Platelet Count 267 TH/MM3 Mean Platelet Volume 6.8 FL Neutrophils (%) (Auto) 93.1 % Lymphocytes (%) (Auto) 3.8 % Monocytes (%) (Auto) 2.9 % Eosinophils (%) (Auto) 0.0 % Basophils (%) (Auto) 0.2 % Neutrophils # (Auto) 18.0 TH/MM3 Lymphocytes # (Auto) 0.7 TH/MM3 Monocytes # (Auto) 0.6 TH/MM3 Eosinophils # (Auto) 0.0 TH/MM3 Basophils # (Auto) 0.0 TH/MM3 CBC Comment DIFF FINAL Differential Comment Blood Urea Nitrogen 11 MG/DL Creatinine 0.70 MG/DL Random Glucose 123 MG/DL Calcium Level 7.9 MG/DL Sodium Level 142 MEQ/L Potassium Level 3.8 MEQ/L Chloride Level 110 MEQ/L Carbon Dioxide Level 20.6 MEQ/L Anion Gap 11 MEQ/L Estimat Glomerular Filtration Rate 86 ML/MIN Lactic Acid Level 1.0 mmol/L Troponin I 0.10 NG/ML 0.06 NG/ML Test 03/30/17 05:30 White Blood Count 11.6 TH/MM3 Red Blood Count 3.04 MIL/MM3 Hemoglobin 10.1 GM/DL Hematocrit 29.4 % Mean Corpuscular Volume 96.8 FL Mean Corpuscular Hemoglobin 33.2 PG Mean Corpuscular Hemoglobin Concent 34.3 % Red Cell Distribution Width 13.8 % Platelet Count 314 TH/MM3 Mean Platelet Volume 6.6 FL Neutrophils (%) (Auto) 81.3 % Lymphocytes (%) (Auto) 10.3 % Monocytes (%) (Auto) 7.5 % Eosinophils (%) (Auto) 0.4 % Basophils (%) (Auto) 0.5 % Neutrophils # (Auto) 9.4 TH/MM3 Lymphocytes # (Auto) 1.2 TH/MM3 Monocytes # (Auto) 0.9 TH/MM3 Eosinophils # (Auto) 0.0 TH/MM3 Basophils # (Auto) 0.1 TH/MM3 CBC Comment DIFF FINAL Differential Comment Blood Urea Nitrogen 6 MG/DL Creatinine 0.44 MG/DL Random Glucose 91 MG/DL Total Protein 6.6 GM/DL Albumin 2.3 GM/DL Calcium Level 8.5 MG/DL Phosphorus Level 2.9 MG/DL Magnesium Level 1.9 MG/DL Alkaline Phosphatase 81 U/L Aspartate Amino Transf (AST/SGOT) 16 U/L Alanine Aminotransferase (ALT/SGPT) 14 U/L Total Bilirubin 0.3 MG/DL Sodium Level 137 MEQ/L Potassium Level 2.9 MEQ/L Chloride Level 103 MEQ/L Carbon Dioxide Level 22.7 MEQ/L Anion Gap 11 MEQ/L Estimat Glomerular Filtration Rate 147 ML/MIN Hemoglobin A1c 5.8 % Total Creatine Kinase 108 U/L Creatine Kinase MB 1.0 NG/ML Troponin I 0.02 NG/ML Free Thyroxine 1.55 NG/DL Thyroid Stimulating Hormone 3rd Gen 0.787 uIU/ML Imaging Last Impressions Abdomen/Pelvis CT 03/27/17 0208 Signed Impressions: Service Date/Time: Monday, March 27, 2017 03:00 - CONCLUSION: 1. There is a left staghorn calculus in the renal pelvis causing moderate to severe left hydronephrosis and inflammatory changes of the renal pelvis and proximal left ureter. 2. There are additional nonobstructing stones in the left lower pole collecting system measuring up to 14 mm. Joselo Castro MD Lumbar Spine CT 03/27/17 0000 Signed Impressions: Service Date/Time: Monday, March 27, 2017 03:00 - CONCLUSION: 1. Mild spinal canal stenosis at L3-L4 secondary to disc bulge and facet arthrosis. 2. Postsurgical changes at L4-S1, as above. Joselo Castro MD Objective Remarks GENERAL: Awake alert oriented talkative and cooperative SKIN: Warm and dry. HEAD: Atraumatic. Normocephalic. EYES: Pupils equal and round. No scleral icterus. No injection or drainage. ENT: No nasal bleeding or discharge. Mucous membranes pink and moist. Tongue is midline NECK: Trachea midline. No JVD. Supple CARDIOVASCULAR: Regular rate and rhythm. S1-S2 no S3 or S4 no heave or thrill or rub or gallop RESPIRATORY: No accessory muscle use. Clear to auscultation. Breath sounds equal bilaterally. GASTROINTESTINAL: Abdomen soft, MILDLY tender, nondistended. Hepatic and splenic margins not palpable. Carreon catheter in place MUSCULOSKELETAL: Extremities without clubbing, cyanosis, or edema. No obvious deformities. NEUROLOGICAL: Awake and alert. No obvious cranial nerve deficits. Motor grossly within normal limits. Five out of 5 muscle strength in the arms and legs. Normal speech. PSYCHIATRIC: Appropriate mood and affect; insight and judgment normal. Procedures Cystoscopy and left retrograde stent insertion Date of Surgery: Mar 27, 2017 Preoperative Diagnosis: (1) Staghorn renal calculus (2) Hydronephrosis, left Postoperative Diagnosis: (1) Hydronephrosis, left (2) Staghorn renal calculus Procedure: Cystoscopy, left retrograde pyelogram, placement of left longterm ureteral stent and left nephrostogram Post Procedure Progress Note Pre Procedure Diagnosis: (1) Pyelonephritis Post Procedure Diagnosis: (1) Pyelonephritis Procedure Date: Mar 27, 2017 Supervising Radiologist: Morro Pinon Proceduralist/Assist: Stephy Lucaino, RT(R)(CV), Santiago Mandel RT(R), Giselle Alaniz RT(R) Anesthesia: Conscious Sedation Plan of Activity Patient to Unit: ROPU Patient Condition: Fair See PACS Report for procedural detail/treatment Drainage Procedure Procedure 1 Imaging Guidance: Fluoroscopy Side: Left Procedure Type: Nephrostomy Procedure: Evaluation (failed nephrostomy secondary to staghor, pyonephrosis with specimen sent to lab patient to [facility] for monitoring for sepsis) Medications and IVs Current Medications Morphine Sulfate (Morphine Inj) 4 mg ONCE ONCE IV PUSH Last administered on 02:35; Start 03/27/17 at 02:15; Stop 03/27/17 at 02:16; Status DC Ondansetron HCl (Zofran Inj) 4 mg ONCE ONCE IVP Last administered on 03/27/17 02:35; Start 03/27/17 at 02:15; Stop 03/27/17 at 02:16; Status DC Sodium Chloride 1,000 ml @ 1,000 mls/hr Q1H IV Last administered on 03/27/17 03:24; Start 03/27/17 at 02:36; Stop 03/27/17 at 03:35; Status DC Iohexol (Omnipaque 350 Inj) 100 ml STK-MED ONCE IVCONTRAST Last administered on 03/26/17 03:11; Start 03/26/17 at 03:11; Stop 03/27/17 at 03:11; Status DC Hydromorphone HCl (Dilaudid Pf Inj) 0.5 mg ONCE ONCE IV PUSH Last administered on 03/27/17 03:34; Start 03/27/17 at 03:30; Stop 03/27/17 at 03:31; Status DC Ceftriaxone Sodium 1000 mg/ Sodium Chloride 100 ml @ 200 mls/hr ONCE ONCE IV Last administered on 03/27/17 03:55; Start 03/27/17 at 03:45; Stop 03/27/17 at 04: 14; Status DC Ketorolac Tromethamine (Toradol Inj) 30 mg ONCE ONCE IV PUSH Last administered on 03/27/17 03:55; Start 03/27/17 at 03:45; Stop 03/27/17 at 03:46; Status DC Sodium Chloride 1,000 ml @ 100 mls/hr Q10H IV Last administered on 03/30/17 11 :22; Start 03/27/17 at 03:59 Sodium Chloride (NS Flush) 2 ml UNSCH PRN IV FLUSH FLUSH AFTER USING IV ACCESS ; Start 03/27/17 at 04:00 Sodium Chloride (NS Flush) 2 ml BID IV FLUSH Last administered on 03/30/17 08: 28; Start 03/27/17 at 09:00 Ondansetron HCl (Zofran Inj) 4 mg Q6H PRN IVP NAUSEA OR VOMITING Last administered on 03/30/17 08:30; Start 03/27/17 at 04:00 Naloxone HCl (Narcan Inj) 0.4 mg UNSCH PRN IV SEE LABEL COMMENTS; Start at 04:00 Hydromorphone HCl (Dilaudid Pf Inj) 0.5 mg Q4H PRN IV PUSH pain >5 Last administered on 03/30/17 08:30; Start 03/27/17 at 04:00 Ciprofloxacin/ Dextrose 200 ml @ 200 mls/hr Q12H IV Last administered on 04:27; Start 03/27/17 at 04:00; Stop 03/29/17 at 11:58; Status DC Bupropion HCl (Wellbutrin Sr) 150 mg Q12HR PO Last administered on 03/30/17 08: 29; Start 03/27/17 at 09:00 Levothyroxine Sodium (Synthroid) 125 mcg DAILY@0600 PO Last administered on 03/30 05:35; Start 03/27/17 at 06:00 Pantoprazole Sodium (Protonix) 20 mg DAILY PO Last administered on 03/30/17 08: 28; Start 03/27/17 at 09:00 Hydromorphone HCl (Dilaudid Pf Inj) 1 mg ONCE ONCE IV PUSH Last administered on 03/27/17 10:51; Start 03/27/17 at 10:45; Stop 03/27/17 at 10:46; Status DC Fentanyl Citrate (fentaNYL INJ) 200 mcg STK-MED ONCE .ROUTE Last administered on 03/27/17 13:32; Start 03/27/17 at 13:32; Stop 03/27/17 at 13:33; Status DC Midazolam HCl (Versed Inj) 2 mg STK-MED ONCE .ROUTE Last administered on 13:32; Start 03/27/17 at 13:32; Stop 03/27/17 at 13:33; Status DC Midazolam HCl (Versed Inj) 2 mg STK-MED ONCE .ROUTE Last administered on 13:32; Start 03/27/17 at 13:32; Stop 03/27/17 at 13:33; Status DC Levofloxacin/ Dextrose 100 ml @ As Directed STK-MED ONCE IV Last administered on 03/27/17 15:08; Start 03/27/17 at 15:08; Stop 03/27/17 at 15:09; Status DC Meperidine HCl (Demerol Inj) 50 mg STK-MED ONCE .ROUTE Last administered on 03/27 16:06; Start 03/27/17 at 16:06; Stop 03/27/17 at 16:07; Status DC Gentamicin Sulfate/Sodium Chloride 100 ml @ 200 mls/hr Q8H IV Last administered on 03/28/17 17:57; Start 03/27/17 at 17:00; Stop 03/28/17 at 18:07; Status DC Acetaminophen (Ofirmev 1000 Mg/ 100 ml Inj) 1,000 mg NOW ONCE IV Last administered on 03/27/17 16:37; Start 03/27/17 at 16:45; Stop 03/27/17 at 16:46; Status DC Acetaminophen (Tylenol) 650 mg Q6H PRN PO TEMPERATURE > 100.4 F Last administered on 03/29/17 16:14; Start 03/27/17 at 16:45 Iohexol (Omnipaque 350 Inj) 40 ml STK-MED ONCE .XX Last administered on 18:37; Start 03/27/17 at 18:37; Stop 03/27/17 at 18:38; Status DC Norepinephrine Bitartrate (Levophed Inj) 4 mg STK-MED ONCE .ROUTE Last administered on 03/27/17 18:59; Start 03/27/17 at 18:59; Stop 03/27/17 at 19:00; Status DC Fentanyl Citrate (fentaNYL INJ) 100 mcg STK-MED ONCE .ROUTE ; Start 03/27/17 at 19:13; Stop 03/27/17 at 19:14; Status DC Miscellaneous Information ALL NURSING DEPARTME... UNSCH PRN .XX SEE LABEL COMMENTS; Start 03/27/17 at 19:05; Stop 03/28/17 at 19:04; Status DC Sodium Chloride 500 ml @ 500 mls/hr BOLUS ONCE IV ; Start 03/28/17 at 15:45; Stop 03/28/17 at 15:50; Status DC Pharmacy Profile Note 0 ml @ 0 mls/hr UNSCH OTHER ; Start 03/28/17 at 15:45; Stop 03/29/17 at 11:58; Status DC Vancomycin HCl 1251 mg/Sodium Chloride 512.51 ml @ 250 mls/ hr Q12H IV ; Start 03/28/17 at 17:00; Status Cancel Sodium Chloride 250 ml @ 250 mls/hr BOLUS ONCE IV Last administered on 15:55; Start 03/28/17 at 16:00; Stop 03/28/17 at 16:59; Status DC Vancomycin HCl 1000 mg/Sodium Chloride 250 ml @ 250 mls/hr Q12H IV Last administered on 03/29/17 05:29; Start 03/28/17 at 18:00; Stop 03/29/17 at 11:58; Status DC Miscellaneous Information SPECIFIC LAB TO BE RYAN... ONCE ONCE .XX ; Start at 05:45; Stop 03/30/17 at 05:46; Status DC Cefazolin Sodium/ Dextrose 50 ml @ 100 mls/hr Q8H IV Last administered on 11:23; Start 03/28/17 at 20:00 Morphine Sulfate (Morphine Inj) 2 mg ONCE ONCE IV PUSH Last administered on 04:09; Start 03/29/17 at 04:15; Stop 03/29/17 at 04:16; Status DC Ciprofloxacin (Cipro) 750 mg Q12HR PO Last administered on 03/30/17 08:29; Start 03/29/17 at 21:00 Potassium Chloride (KCl) 40 meq ONCE ONCE PO Last administered on 03/30/17 08: 31; Start 03/30/17 at 08:15; Stop 03/30/17 at 08:19; Status DC Potassium Chloride (KCl) 40 meq ONCE ONCE PO Last administered on 03/30/17 11: 23; Start 03/30/17 at 11:00; Stop 03/30/17 at 11:01; Status DC Urinary Catheter: Yes Vascular Central Line Catheter: No A/P Problem List: (1) Pyelonephritis ICD Code: N12 - Tubulo-interstitial nephritis, not specified as acute or chronic Status: Acute (2) Hydronephrosis ICD Code: N13.30 - Unspecified hydronephrosis Status: Acute (3) Kidney stone ICD Code: N20.0 - Calculus of kidney Status: Acute Assessment and Plan [id number] with obstructed infected renal calculus and hydronephrosis went for cystoscopy and stent placement then complicated with acute septic shock secondary to likely bacteremia secondary to percutaneous nephrostomy tube placement. Patient transferred to ICU and seaman officer was consulted yesterday, I discussed with Dr. Melo this morning he transferred patient back to hospitalist service she stabilized Septic Shock due to urine sepsis>> systolic blood pressure still 90s with increased heart rate above 100 Bacteremia mostly staph aureus, gram-positive cocci- AWAIT SENSITIVITES Obstructing Ureteral calculus Urinary tract infection Urosepsis Positive staghorn calculus HYPOKALEMIA- REPLACE ORALLY Plan: -Continue monitoring-moved out of ICU - continue abx on per infectious disease - wean fio2 for spo2 > 90% -Iv fluid Incentive spirometry Echocardiogram per ID suggestion A.m. labs Discussed with patient and RN ADVANCE DIET CLEARS ONWARD AMBIEN FOR SLEEP Problem Qualifiers (1) Hydronephrosis: Qualified Codes: N13.2 - Hydronephrosis with renal and ureteral calculous obstruction Ganesh Aguirre DO Mar 30, 2017 15:10
[2017-03-31] VITALS (7 sets, daily range): BP systolic 91–126; BP diastolic 55–70; PULSE 79–89; RESP 16–20; TEMP 97.4–99.4; O2SAT 93–97
[2017-03-31] MEDS: ZOLPIDEM TARTRATE 10 MG TAB PO PRN ×2 (01:10→23:49)
[2017-03-31] MEDS: ceFAZolin 2 GM PREMIX 50 ML IV SCH ×3 (03:21→20:52)
[2017-03-31] MEDS: LEVOTHYROXINE SODIUM 125 MCG TAB PO SCH (05:07)
[2017-03-31 07:43] LABS: AUTOMATED NEUTROPHIL # 9.1 TH/MM3 (1.8-7.7); BASOPHIL # 0.1 TH/MM3 (0-0.2); BASOPHIL % 0.4 % (0.0-2.0); EOSINOPHIL % 0.4 % (0.0-4.0); HEMO FLAGS DIFF FINAL; LYMPH % 16.9 % (9.0-44.0); LYMPHOCYTE # 2.1 TH/MM3 (1.0-4.8); MEAN CELL VOLUME 95.6 FL (80.0-100.0); MEAN CORPUSCULAR HEMOGLOBIN 32.6 PG (27.0-34.0); MEAN CORPUSCULAR HGB CONC 34.1 % (32.0-36.0); MONO % 7.9 % (0.0-8.0); NEUT % 74.4 % (16.0-70.0); PLATELET COUNT 378 TH/MM3 (150-450); RED BLOOD COUNT 3.25 MIL/MM3 (4.00-5.30); RED CELL DISTRIBUTION WIDTH 13.5 % (11.6-17.2); WHITE BLOOD COUNT 12.2 TH/MM3 (4.0-11.0)
[2017-03-31 07:58] LABS: ANION GAP 7 MEQ/L (5-15); AST (GOT) 15 U/L (15-37); BLOOD UREA NITROGEN 6 MG/DL (7-18); CHLORIDE 104 MEQ/L (98-107); GLOMERULAR FILTRATION RATE 143 ML/MIN (>89); MAGNESIUM 1.9 MG/DL (1.5-2.5); POTASSIUM 3.3 MEQ/L (3.5-5.1); SODIUM (NA) 137 MEQ/L (136-145)
[2017-03-31] MEDS: SODIUM CHLOR 0.9% 1000 ML INJ 1,000 ML IV SCH ×3 (07:59→22:26)
[2017-03-31 08:02] LABS: ALKALINE PHOSPHATASE 84 U/L (45-117); ALT (GPT) 14 U/L (10-53); TOTAL BILIRUBIN ADULT 0.3 MG/DL (0.2-1.0)
[2017-03-31] MEDS: CIPROFLOXACIN 750 MG TAB PO SCH ×2 (08:35→20:51)
[2017-03-31] MEDS: PANTOPRAZOLE SOD 20 MG DELAYED RELEASE TAB PO SCH (08:35)
[2017-03-31] MEDS: SODIUM CHLORIDE 0.9% FLUSH 10 ML FLUSH IV FLUSH SCH ×2 (08:35→20:52)
[2017-03-31] MEDS: buPROPion HCL 150 MG SUSTAINED RELEASE TAB PO SCH ×3 (08:36→20:52)
[2017-03-31] MEDS: ONDANSETRON HCL 4 MG/2 ML VIAL IVP PRN ×2 (08:40→15:48)
[2017-03-31] MEDS: HYDROmorphone HCL PF 1 MG/ML VIAL IV PUSH PRN ×3 (08:40→22:22)
--- NOTE | 2017-03-31 09:04 | RADRPT ---
EXAM DATE/TIME: 03/27/2017 13:49 [place] COMPARISON: No previous studies available for comparison. INDICATIONS : Patient with staghorn kidney stone left kidney. MEDICAL HISTORY : 1. HTN 2. chronic back pain 3. thyroid disease 4. kidney stones SURGICAL HISTORY : 1. lumbar back surgery 2. c section ENCOUNTER: Initial ACUITY: 2 days PAIN SCORE: 8/10 LOCATION: flank FLUORO TIME: 52.3 minutes IMAGE SERIES: 2 SEDATION TIME: 90 minutes CONTRAST: 40 cc Omnipaque (iohexol) 350 MEDICATION(S): 1.) 4 mg midazolam (Versed) IV 2.) 200 mcg fentanyl (Sublimaze) IV DEVICE(S): 1.) 8 [place] nephrostomy catheter PROCEDURE : 1. Ultrasound-guided puncture of the kidney. 2. Antegrade percutaneous pyelogram. 3. Percutaneous nephrostomy placement. 4. Conscious sedation with continuous EKG and oximetry monitoring. The risks, benefits and alternatives to the procedure were explained and verbal and written consent w as obtained. The site was prepped in sterile fashion. Full sterile technique was used, including ca p, mask, sterile gloves and gown and a large sterile sheet. Hand hygiene and 2% chlorhexidine and/or betadine/alcohol prep was utilized per protocol for cutaneous antisepsis. Sterile gel and sterile probe cover were utilized for ultrasound guidance. The skin and subcutaneous tissues were infiltrate d with local anesthetic solution. With ultrasound and fluoroscopic guidance the selected kidney was punctured and a percutaneous antegr kath pyelogram was performed demonstrating a dilated collecting system. There is an extremely large st aghorn calculus obstructing the renal pelvis and all the calyces. Despite he did attempts a catheter could not be passed past the staghorn calculus into the collecting system. Serial dilatation was perf ormed and a prescribed nephrostomy tube was placed within the dilated lower pole calyx and sutured in place. Conscious sedation was performed with the prescribed dosages and duration as above in the presence of an independent trained radiology nurse to assist in the monitoring of the patient. EKG and oximetry remained stable throughout the procedure. The patient tolerated the procedure well and there were n o complications. The patient was sent to post anesthesia recovery in stable condition. CONCLUSION: Uncomplicated nephrostomy tube placement as above. The large staghorn calculi renal pelvis could not be passed Morro Pinon MD on March 31, 2017 at 9:01 Board Certified Radiologist. This report was verified electronically.
[2017-03-31] MEDS ORDERED: POTASSIUM PHOSPHATE INJ 30 MMOL in SODIUM CHLOR 0.9% 250 ML INJ 250 ML IV ONE ×2 (10:00→16:00)
--- NOTE | 2017-03-31 11:14 | HHI.IDPN ---
Subjective Subjective Remarks Patient is a 56-year-old female, presented to the hospital with 1 day history of abdominal pain. She apparently started having problem in her back which is mostly on the left side on the day prior to admission, and then it started going to the front area. There was no nausea or vomiting, no fever or chills. Patient denies any urinary complaints. She has had prior back pain related to her injury and surgery, but this is different than her usual back pain. Evaluation in the ED showed a CAT scan with a large left staghorn calculus causing significant hydronephrosis and there is also stranding on the left kidney. Patient was evaluated by urology. She had placement of left percutaneous nephrostomy, and they tried putting in a tubing but it was successful. She subsequently underwent cystoscopy and placement of a long ureteric stent. She has been having intermittent fevers. She was initially hypotensive, and received fluid bolus with improvement in her blood pressure. Her blood culture and urine cultures are all growing staph aureus. Notes reviewed Temps ok Back pain same Had some vomiting C/O constipation Urine clear 03/27 BC and UC with MSSA Echo ok No new (+) BC Antibiotics Ancef Cipro Lines PIV Past Medical History hypothyroid Hypertension Hyperlipidemia Depression Anxiety Nerve damage Back pain Past Surgical History C section x 3 Back surgery Allergies: Coded Allergies: amoxicillin (Verified Allergy, Intermediate, hives, 03/27/17) Objective . Vital Signs Date Time Temp Pulse Resp B/P (MAP) Pulse Ox O2 Delivery O2 Flow Rate FiO2 03/31/17 08:15 Nasal Cannula 2.00 03/31/17 08:00 99.4 88 18 126/70 (88) 94 03/31/17 00:00 99.2 86 20 113/67 (82) 96 03/30/17 23:43 Nasal Cannula 2.00 03/30/17 20:49 18 03/30/17 20:08 Nasal Cannula 2.00 03/30/17 20:00 99.7 92 19 104/59 (74) 96 03/30/17 16:00 98.8 93 18 139/80 (99) 96 03/30/17 12:00 98.6 87 18 120/67 (84) 96 03/30/17 11:14 97 Nasal Cannula 2.00 . Laboratory Tests Test 03/30/17 05:30 03/31/17 07:05 White Blood Count 11.6 TH/MM3 12.2 TH/MM3 Red Blood Count 3.04 MIL/MM3 3.25 MIL/MM3 Hemoglobin 10.1 GM/DL 10.6 GM/DL Hematocrit 29.4 % 31.0 % Mean Corpuscular Volume 96.8 FL 95.6 FL Mean Corpuscular Hemoglobin 33.2 PG 32.6 PG Mean Corpuscular Hemoglobin Concent 34.3 % 34.1 % Red Cell Distribution Width 13.8 % 13.5 % Platelet Count 314 TH/MM3 378 TH/MM3 Mean Platelet Volume 6.6 FL 6.3 FL Neutrophils (%) (Auto) 81.3 % 74.4 % Lymphocytes (%) (Auto) 10.3 % 16.9 % Monocytes (%) (Auto) 7.5 % 7.9 % Eosinophils (%) (Auto) 0.4 % 0.4 % Basophils (%) (Auto) 0.5 % 0.4 % Neutrophils # (Auto) 9.4 TH/MM3 9.1 TH/MM3 Lymphocytes # (Auto) 1.2 TH/MM3 2.1 TH/MM3 Monocytes # (Auto) 0.9 TH/MM3 1.0 TH/MM3 Eosinophils # (Auto) 0.0 TH/MM3 0.0 TH/MM3 Basophils # (Auto) 0.1 TH/MM3 0.1 TH/MM3 CBC Comment DIFF FINAL DIFF FINAL Differential Comment Laboratory Tests Test 03/29/17 13:45 03/30/17 05:30 03/31/17 07:05 Troponin I 0.06 NG/ML 0.02 NG/ML Blood Urea Nitrogen 6 MG/DL 6 MG/DL Creatinine 0.44 MG/DL 0.45 MG/DL Random Glucose 91 MG/DL 116 MG/DL Total Protein 6.6 GM/DL 6.6 GM/DL Albumin 2.3 GM/DL 2.2 GM/DL Calcium Level 8.5 MG/DL 8.4 MG/DL Phosphorus Level 2.9 MG/DL 2.2 MG/DL Magnesium Level 1.9 MG/DL 1.9 MG/DL Alkaline Phosphatase 81 U/L 84 U/L Aspartate Amino Transf (AST/SGOT) 16 U/L 15 U/L Alanine Aminotransferase (ALT/SGPT) 14 U/L 14 U/L Total Bilirubin 0.3 MG/DL 0.3 MG/DL Sodium Level 137 MEQ/L 137 MEQ/L Potassium Level 2.9 MEQ/L 3.3 MEQ/L Chloride Level 103 MEQ/L 104 MEQ/L Carbon Dioxide Level 22.7 MEQ/L 26.0 MEQ/L Anion Gap 11 MEQ/L 7 MEQ/L Estimat Glomerular Filtration Rate 147 ML/MIN 143 ML/MIN Hemoglobin A1c 5.8 % Total Creatine Kinase 108 U/L Creatine Kinase MB 1.0 NG/ML Free Thyroxine 1.55 NG/DL Thyroid Stimulating Hormone 3rd Gen 0.787 uIU/ML Microbiology Date/Time Source Procedure Growth Status 03/29/17 05:40 Blood Peripheral Aerobic Blood Culture - Preliminary NO GROWTH IN 2 DAYS Resulted 03/29/17 05:40 Blood Peripheral Anaerobic Blood Culture - Preliminary NO GROWTH IN 2 DAYS Resulted 03/28/17 19:28 Blood Peripheral Aerobic Blood Culture - Preliminary NO GROWTH IN 3 DAYS Resulted 03/28/17 19:28 Blood Peripheral Anaerobic Blood Culture - Final QNS - SEE AEROBE REPORT Resulted 03/28/17 19:15 Blood Peripheral Aerobic Blood Culture - Preliminary NO GROWTH IN 3 DAYS Resulted 03/28/17 19:15 Blood Peripheral Anaerobic Blood Culture - Final QNS - SEE AEROBE REPORT Resulted Imaging Abdomen/Pelvis CT 03/27/17 0208 Signed Impressions: Service Date/Time: Monday, March 27, 2017 03:00 - CONCLUSION: 1. There is a left staghorn calculus in the renal pelvis causing moderate to severe left hydronephrosis and inflammatory changes of the renal pelvis and proximal left ureter. 2. There are additional nonobstructing stones in the left lower pole collecting system measuring up to 14 mm. Joselo Castro MD Lumbar Spine CT 03/27/17 0000 Signed Impressions: Service Date/Time: Monday, March 27, 2017 03:00 - CONCLUSION: 1. Mild spinal canal stenosis at L3-L4 secondary to disc bulge and facet arthrosis. 2. Postsurgical changes at L4-S1, as above. Joselo Castro MD Physical Exam GENERAL: awake and alert, not in respiratory distress. SKIN: Warm and dry. No generalized rash, no ecchymoses and no evidence of embolic lesions. HEAD: Atraumatic. Normocephalic. No temporal wasting, or tenderness. EYES: [place] conjunctiva. No petechia or hemorrhage. Pupils equal, round and reactive to light. No scleral icterus. No injection or drainage. EARS, NOSE AND THROAT: Nose without bleeding or purulent nasal discharge. Mucous membranes pink and moist. No oral lesions noted. NECK: Trachea midline. Supple and not tender, no meningeal signs CARDIOVASCULAR: Regular rate and rhythm. No murmurs, rubs or gallops heard RESPIRATORY: Clear to auscultation. Breath sounds equal bilaterally. No rales , wheezing or rhonchi ABDOMEN: Soft, nondistended. Bowel sounds present and normoactive. No abdominal tenderness. No guarding. No rebound. No organomegaly. BACK: Left percutaneous nephrostomy in place, with clear yellow urine EXTREMITIES: No clubbing, cyanosis, or edema.No joint effusion, has good ROM. No calf tenderness. Well perfused and warm. NEUROLOGICAL: Awake and alert. Cranial nerves grossly intact. Motor grossly within normal limits. PSYCHIATRIC: Normal affect, calm and cooperative. LINE: No evidence of infection Assessment & Plan Remarks IMPRESSION Urosepsis, due to complicated UTI, has obstructing staghorn calculus Staph aureus sepsis, and UTI - not a common uropathogen - due to staghorn calculus - echo negative RECOMMENDATION Follow repeat BC Continue Cipro for now Continue Cefazolin for MSSA coverage Monitor progress Repeat UA and C/S from cr and LPCN Will need course of IV due to bacteremia Will discuss with urology Explained plan to the patient Inna Healy MD Mar 31, 2017 11:14
[2017-03-31 13:26] LABS: BACTERIA, URINE RARE /hpf; BLOOD, URINE MOD (NEG); COMMENT (UR) CULTURE INDICATED; CULTURE IF INDICATED CULTURE INDICATED; GLUCOSE,URINE NEG (NEG); KETONE, URINE NEG (NEG); MUCUS URINE FEW /lpf (OCC); NITRITE,URINE NEG (NEG); PH, URINE 7.5 (5.0-8.5); URINE COLOR LIGHT-YELLOW (YELLW/STRAW)
[2017-03-31 13:27] LABS: BACTERIA, URINE RARE /hpf; BLOOD, URINE MOD (NEG); COMMENT (UR) CATH-CULTURE IND; CULTURE IF INDICATED CATH CULTURE IND; GLUCOSE,URINE NEG (NEG); KETONE, URINE NEG (NEG); MUCUS URINE FEW /lpf (OCC); NITRITE,URINE NEG (NEG); URINE COLOR YELLOW (YELLW/STRAW)
--- NOTE | 2017-03-31 14:53 | HHI.PR ---
Subjective Patient symptoms today Pt seen and examined. Pt feeing better. Objective Vital Signs Vital Signs Date Time Temp Pulse Resp B/P (MAP) Pulse Ox O2 Delivery O2 Flow Rate FiO2 03/31/17 12:00 98.3 79 18 109/65 (80) 96 03/31/17 08:15 Nasal Cannula 2.00 03/31/17 08:00 99.4 88 18 126/70 (88) 94 03/31/17 00:00 99.2 86 20 113/67 (82) 96 03/30/17 23:43 Nasal Cannula 2.00 03/30/17 20:49 18 03/30/17 20:08 Nasal Cannula 2.00 03/30/17 20:00 99.7 92 19 104/59 (74) 96 03/30/17 16:00 98.8 93 18 139/80 (99) 96 Intake & Output 03/31/17 03/31/17 07:00 19:00 Intake Total 1460 ml Output Total 2900 ml Balance -1440 ml Intake Oral 360 ml IV Total 1100 ml Output Urine Total 2100 ml Drainage Total 800 ml # Bowel Movements 0 Result Diagram: 03/31/17 0703/31/17704 Objective Remarks Abd:soft, nt,nd Carreon and PCNT: urine is clear Medications and IVs Current Medications Medications (Trade) Dose Ordered Sig/Devan Route Start Time Stop Time Status Last Admin Sodium Chloride 1,000 ml @ 100 mls/hr Q10H IV 03/27/17 03:59 03/31/17 07:59 (NS Flush) 2 ml UNSCH PRN IV FLUSH 03/27/17 04:00 (NS Flush) 2 ml BID IV FLUSH 03/27/17 09:00 03/30/17 08:28 (Zofran Inj) 4 mg Q6H PRN IVP 03/27/17 04:00 03/31/17 08:40 (Narcan Inj) 0.4 mg UNSCH PRN IV 03/27/17 04:00 (Dilaudid Pf Inj) 0.5 mg Q4H PRN IV PUSH 03/27/17 04:00 03/31/17 08:40 (Wellbutrin Sr) 150 mg Q12HR PO 03/27/17 09:00 03/31/17 08:36 (Synthroid) 125 mcg DAILY@0600 PO 03/27/17 06:00 03/31/17 05:07 (Protonix) 20 mg DAILY PO 03/27/17 09:00 03/31/17 08:35 (Tylenol) 650 mg Q6H PRN PO 03/27/17 16:45 03/29/17 16:14 Cefazolin Sodium/ Dextrose 50 ml @ 100 mls/hr Q8H IV 03/28/17 20:00 03/31/17 12:00 (Cipro) 750 mg Q12HR PO 03/29/17 21:00 03/31/17 08:35 (Ambien) 10 mg HS PRN PO 03/30/17 21:00 03/31/17 01:10 Potassium Phosphate 30 mmol/ Sodium Chloride 260 ml @ 43.333 mls/ hr ONCE ONCE IV 03/31/17 10:00 03/31/17 15:59 03/31/17 10:00 Potassium Phosphate 30 mmol/ Sodium Chloride 260 ml @ 43.333 mls/ hr ONCE ONCE IV 03/31/17 16:00 03/31/17 21:59 Assessment and Plan Assessment and Plan 56-year-old female with findings of a large left staghorn calculus with moderate to severe hydronephrosis. Due to large stone would recommend a left percutaneous nephrostomy tube with nephroureteral stent. Check urine cultures and continue with IV antibiotics Will need left percutaneous nephrolithotomy after her infection has cleared as an outpatient. Thank you for the consult and allowing me to participate in care of this patient. 03/31/17 56-year-old female with findings of a large left staghorn calculus with moderate to severe hydronephrosis s/p Left PCNT with left JJ stent insertion Continue IV ABx Will need left percutaneous nephrolithotomy after her infection has cleared as an outpatient. Shar Morales DO Mar 31, 2017 14:53
--- NOTE | 2017-03-31 17:27 | HHI.PR ---
Subjective Remarks -3 Patient seen and examined Had some atypical chest pain last night with borderline troponins No change in EKG States she is congested today will get incentive spirometry continue on antibiotics per infectious disease Discussed with patient and RN's - advance diet from clears as tolerated AM LABS HAS INSOMNIA ADD AMBIEN MILD ABDOMINAL PAIN- MAY BE HUNGRY ADVANCE DIET HAD ECHO DW RN AND PT 9-5 TOLERATING A DIET CONTINUE ON IV ANTIBIOTICS NOT CLEARED BY ID OR UROLOGY YET FOR DC AM LABS Objective Vitals Vital Signs Date Time Temp Pulse Resp B/P (MAP) Pulse Ox O2 Delivery O2 Flow Rate FiO2 03/31/17 12:00 98.3 79 18 109/65 (80) 96 03/31/17 08:15 Nasal Cannula 2.00 03/31/17 08:00 99.4 88 18 126/70 (88) 94 03/31/17 00:00 99.2 86 20 113/67 (82) 96 03/30/17 23:43 Nasal Cannula 2.00 03/30/17 20:49 18 03/30/17 20:08 Nasal Cannula 2.00 03/30/17 20:00 99.7 92 19 104/59 (74) 96 I/O 03/30/17 03/30/17 03/30/17 03/31/17 03/31/17 03/31/17 06:59 14:59 22:59 06:59 14:59 22:59 Intake Total 1340 ml 1842 ml 1290 ml 290 ml Output Total 3300 ml 400 ml 2575 ml 2300 ml Balance -1960 ml 1442 ml -1285 ml -2010 ml Intake Oral 240 ml 240 ml 240 ml IV Total 1100 ml 1842 ml 1050 ml 50 ml Output Urine Total 1900 ml 2575 ml 1500 ml Drainage Total 1400 ml 400 ml 800 ml # Bowel Movements 0 0 Result Diagram: 03/31/17 0705 03/31/17 07 Other Results Laboratory Tests Test 03/28/17 19:28 03/29/17 05:40 03/29/17 13:45 03/30/17 05:30 Lactic Acid Level 1.0 mmol/L Troponin I 0.10 NG/ML 0.06 NG/ML 0.02 NG/ML White Blood Count 11.6 TH/MM3 Red Blood Count 3.04 MIL/MM3 Hemoglobin 10.1 GM/DL Hematocrit 29.4 % Mean Corpuscular Volume 96.8 FL Mean Corpuscular Hemoglobin 33.2 PG Mean Corpuscular Hemoglobin Concent 34.3 % Red Cell Distribution Width 13.8 % Platelet Count 314 TH/MM3 Mean Platelet Volume 6.6 FL Neutrophils (%) (Auto) 81.3 % Lymphocytes (%) (Auto) 10.3 % Monocytes (%) (Auto) 7.5 % Eosinophils (%) (Auto) 0.4 % Basophils (%) (Auto) 0.5 % Neutrophils # (Auto) 9.4 TH/MM3 Lymphocytes # (Auto) 1.2 TH/MM3 Monocytes # (Auto) 0.9 TH/MM3 Eosinophils # (Auto) 0.0 TH/MM3 Basophils # (Auto) 0.1 TH/MM3 CBC Comment DIFF FINAL Differential Comment Blood Urea Nitrogen 6 MG/DL Creatinine 0.44 MG/DL Random Glucose 91 MG/DL Total Protein 6.6 GM/DL Albumin 2.3 GM/DL Calcium Level 8.5 MG/DL Phosphorus Level 2.9 MG/DL Magnesium Level 1.9 MG/DL Alkaline Phosphatase 81 U/L Aspartate Amino Transf (AST/SGOT) 16 U/L Alanine Aminotransferase (ALT/SGPT) 14 U/L Total Bilirubin 0.3 MG/DL Sodium Level 137 MEQ/L Potassium Level 2.9 MEQ/L Chloride Level 103 MEQ/L Carbon Dioxide Level 22.7 MEQ/L Anion Gap 11 MEQ/L Estimat Glomerular Filtration Rate 147 ML/MIN Hemoglobin A1c 5.8 % Total Creatine Kinase 108 U/L Creatine Kinase MB 1.0 NG/ML Free Thyroxine 1.55 NG/DL Thyroid Stimulating Hormone 3rd Gen 0.787 uIU/ML Test 03/31/17 07:05 03/31/17 12:50 White Blood Count 12.2 TH/MM3 Red Blood Count 3.25 MIL/MM3 Hemoglobin 10.6 GM/DL Hematocrit 31.0 % Mean Corpuscular Volume 95.6 FL Mean Corpuscular Hemoglobin 32.6 PG Mean Corpuscular Hemoglobin Concent 34.1 % Red Cell Distribution Width 13.5 % Platelet Count 378 TH/MM3 Mean Platelet Volume 6.3 FL Neutrophils (%) (Auto) 74.4 % Lymphocytes (%) (Auto) 16.9 % Monocytes (%) (Auto) 7.9 % Eosinophils (%) (Auto) 0.4 % Basophils (%) (Auto) 0.4 % Neutrophils # (Auto) 9.1 TH/MM3 Lymphocytes # (Auto) 2.1 TH/MM3 Monocytes # (Auto) 1.0 TH/MM3 Eosinophils # (Auto) 0.0 TH/MM3 Basophils # (Auto) 0.1 TH/MM3 CBC Comment DIFF FINAL Differential Comment Blood Urea Nitrogen 6 MG/DL Creatinine 0.45 MG/DL Random Glucose 116 MG/DL Total Protein 6.6 GM/DL Albumin 2.2 GM/DL Calcium Level 8.4 MG/DL Phosphorus Level 2.2 MG/DL Magnesium Level 1.9 MG/DL Alkaline Phosphatase 84 U/L Aspartate Amino Transf (AST/SGOT) 15 U/L Alanine Aminotransferase (ALT/SGPT) 14 U/L Total Bilirubin 0.3 MG/DL Sodium Level 137 MEQ/L Potassium Level 3.3 MEQ/L Chloride Level 104 MEQ/L Carbon Dioxide Level 26.0 MEQ/L Anion Gap 7 MEQ/L Estimat Glomerular Filtration Rate 143 ML/MIN Urine Color YELLOW Urine Turbidity CLEAR Urine pH 7.0 Urine Specific [place] 1.008 Urine Protein TRACE mg/dL Urine Glucose (UA) NEG mg/dL Urine Ketones NEG mg/dL Urine Occult Blood MOD Urine Nitrite NEG Urine Bilirubin NEG Urine Urobilinogen LESS THAN 2.0 MG/DL Urine Leukocyte Esterase LARGE Urine RBC 48 /hpf Urine WBC 39 /hpf Urine Bacteria RARE /hpf Urine Mucus FEW /lpf Microscopic Urinalysis Comment CATH-CULTURE IND Imaging Last Impressions Nephrostomy 03/27/17 0720 Signed Impressions: Service Date/Time: Monday, March 27, 2017 13:49 - CONCLUSION: Uncomplicated nephrostomy tube placement as above. The large staghorn calculi renal pelvis could not be passed Morro Pinon MD Abdomen/Pelvis CT 03/27/17 0208 Signed Impressions: Service Date/Time: Monday, March 27, 2017 03:00 - CONCLUSION: 1. There is a left staghorn calculus in the renal pelvis causing moderate to severe left hydronephrosis and inflammatory changes of the renal pelvis and proximal left ureter. 2. There are additional nonobstructing stones in the left lower pole collecting system measuring up to 14 mm. Joselo Castro MD Lumbar Spine CT 03/27/17 0000 Signed Impressions: Service Date/Time: Monday, March 27, 2017 03:00 - CONCLUSION: 1. Mild spinal canal stenosis at L3-L4 secondary to disc bulge and facet arthrosis. 2. Postsurgical changes at L4-S1, as above. Joselo Castro MD Objective Remarks GENERAL: Awake alert oriented talkative and cooperative SKIN: Warm and dry. HEAD: Atraumatic. Normocephalic. EYES: Pupils equal and round. No scleral icterus. No injection or drainage. ENT: No nasal bleeding or discharge. Mucous membranes pink and moist. Tongue is midline NECK: Trachea midline. No JVD. Supple CARDIOVASCULAR: Regular rate and rhythm. S1-S2 no S3 or S4 no heave or thrill or rub or gallop RESPIRATORY: No accessory muscle use. Clear to auscultation. Breath sounds equal bilaterally. GASTROINTESTINAL: Abdomen soft, MILDLY tender, nondistended. Hepatic and splenic margins not palpable. Carreon catheter in place MUSCULOSKELETAL: Extremities without clubbing, cyanosis, or edema. No obvious deformities. NEUROLOGICAL: Awake and alert. No obvious cranial nerve deficits. Motor grossly within normal limits. Five out of 5 muscle strength in the arms and legs. Normal speech. PSYCHIATRIC: Appropriate mood and affect; insight and judgment normal. Procedures Cystoscopy and left retrograde stent insertion Date of Surgery: Mar 27, 2017 Preoperative Diagnosis: (1) Staghorn renal calculus (2) Hydronephrosis, left Postoperative Diagnosis: (1) Hydronephrosis, left (2) Staghorn renal calculus Procedure: Cystoscopy, left retrograde pyelogram, placement of left long term care administrator ureteral stent and left nephrostogram Post Procedure Progress Note Pre Procedure Diagnosis: (1) Pyelonephritis Post Procedure Diagnosis: (1) Pyelonephritis Procedure Date: Mar 27, 2017 Supervising Radiologist: Morro Pinon Proceduralist/Assist: Stephy Luciano, RT(R)(CV), Santiago Mandel, RT(R), Giselle Alaniz RT(R) Anesthesia: Conscious Sedation Plan of Activity Patient to Unit: ROPU Patient Condition: Fair See PACS Report for procedural detail/treatment Drainage Procedure Procedure 1 Imaging Guidance: Fluoroscopy Side: Left Procedure Type: Nephrostomy Procedure: Evaluation (failed nephrostomy secondary to staghor, pyonephrosis with specimen sent to lab [facility] to [facility] for monitoring for sepsis) Medications and IVs Current Medications Morphine Sulfate (Morphine Inj) 4 mg ONCE ONCE IV PUSH Last administered on 9/ 1/17at 02:35; Start 03/27/17 at 02:15; Stop 03/27/17 at 02:16; Status DC Ondansetron HCl (Zofran Inj) 4 mg ONCE ONCE IVP Last administered on 03/27/17 02:35; Start 03/27/17 at 02:15; Stop 03/27/17 at 02:16; Status DC Sodium Chloride 1,000 ml @ 1,000 mls/hr Q1H IV Last administered on 03/27/17 03:24; Start 03/27/17 at 02:36; Stop 03/27/17 at 03:35; Status DC Iohexol (Omnipaque 350 Inj) 100 ml STK-MED ONCE IVCONTRAST Last administered on 03/26/17 03:11; Start 03/26/17 at 03:11; Stop 03/27/17 at 03:11; Status DC Hydromorphone HCl (Dilaudid Pf Inj) 0.5 mg ONCE ONCE IV PUSH Last administered on 03/27/17 03:34; Start 03/27/17 at 03:30; Stop 03/27/17 at 03:31; Status DC Ceftriaxone Sodium 1000 mg/ Sodium Chloride 100 ml @ 200 mls/hr ONCE ONCE IV Last administered on 03/27/17 03:55; Start 03/27/17 at 03:45; Stop 03/27/17 at 04: 14; Status DC Ketorolac Tromethamine (Toradol Inj) 30 mg ONCE ONCE IV PUSH Last administered on 03/27/17 03:55; Start 03/27/17 at 03:45; Stop 03/27/17 at 03:46; Status DC Sodium Chloride 1,000 ml @ 100 mls/hr Q10H IV Last administered on 03/31/17 07 :59; Start 03/27/17 at 03:59 Sodium Chloride (NS Flush) 2 ml UNSCH PRN IV FLUSH FLUSH AFTER USING IV ACCESS ; Start 03/27/17 at 04:00 Sodium Chloride (NS Flush) 2 ml BID IV FLUSH Last administered on 03/30/17 08: 28; Start 03/27/17 at 09:00 Ondansetron HCl (Zofran Inj) 4 mg Q6H PRN IVP NAUSEA OR VOMITING Last administered on 03/31/17 15:48; Start 03/27/17 at 04:00 Naloxone HCl (Narcan Inj) 0.4 mg UNSCH PRN IV SEE LABEL COMMENTS; Start at 04:00 Hydromorphone HCl (Dilaudid Pf Inj) 0.5 mg Q4H PRN IV PUSH pain >5 Last administered on 03/31/17 15:48; Start 03/27/17 at 04:00 Ciprofloxacin/ Dextrose 200 ml @ 200 mls/hr Q12H IV Last administered on 04:27; Start 03/27/17 at 04:00; Stop 03/29/17 at 11:58; Status DC Bupropion HCl (Wellbutrin Sr) 150 mg Q12HR PO Last administered on 03/31/17 08: 36; Start 03/27/17 at 09:00 Levothyroxine Sodium (Synthroid) 125 mcg DAILY@0600 PO Last administered on 03/31 05:07; Start 03/27/17 at 06:00 Pantoprazole Sodium (Protonix) 20 mg DAILY PO Last administered on 03/31/17 08: 35; Start 03/27/17 at 09:00 Hydromorphone HCl (Dilaudid Pf Inj) 1 mg ONCE ONCE IV PUSH Last administered on 03/27/17 10:51; Start 03/27/17 at 10:45; Stop 03/27/17 at 10:46; Status DC Fentanyl Citrate (fentaNYL INJ) 200 mcg STK-MED ONCE .ROUTE Last administered on 03/27/17 13:32; Start 03/27/17 at 13:32; Stop 03/27/17 at 13:33; Status DC Midazolam HCl (Versed Inj) 2 mg STK-MED ONCE .ROUTE Last administered on 13:32; Start 03/27/17 at 13:32; Stop 03/27/17 at 13:33; Status DC Midazolam HCl (Versed Inj) 2 mg STK-MED ONCE .ROUTE Last administered on 13:32; Start 03/27/17 at 13:32; Stop 03/27/17 at 13:33; Status DC Levofloxacin/ Dextrose 100 ml @ As Directed STK-MED ONCE IV Last administered on 03/27/17 15:08; Start 03/27/17 at 15:08; Stop 03/27/17 at 15:09; Status DC Meperidine HCl (Demerol Inj) 50 mg STK-MED ONCE .ROUTE Last administered on 03/27 16:06; Start 03/27/17 at 16:06; Stop 03/27/17 at 16:07; Status DC Gentamicin Sulfate/Sodium Chloride 100 ml @ 200 mls/hr Q8H IV Last administered on 03/28/17 17:57; Start 03/27/17 at 17:00; Stop 03/28/17 at 18:07; Status DC Acetaminophen (Ofirmev 1000 Mg/ 100 ml Inj) 1,000 mg NOW ONCE IV Last administered on 03/27/17 16:37; Start 03/27/17 at 16:45; Stop 03/27/17 at 16:46; Status DC Acetaminophen (Tylenol) 650 mg Q6H PRN PO TEMPERATURE > 100.4 F Last administered on 03/29/17 16:14; Start 03/27/17 at 16:45 Iohexol (Omnipaque 350 Inj) 40 ml STK-MED ONCE .XX Last administered on 18:37; Start 03/27/17 at 18:37; Stop 03/27/17 at 18:38; Status DC Norepinephrine Bitartrate (Levophed Inj) 4 mg STK-MED ONCE .ROUTE Last administered on 03/27/17 18:59; Start 03/27/17 at 18:59; Stop 03/27/17 at 19:00; Status DC Fentanyl Citrate (fentaNYL INJ) 100 mcg STK-MED ONCE .ROUTE ; Start 03/27/17 at 19:13; Stop 03/27/17 at 19:14; Status DC Miscellaneous Information ALL NURSING DEPARTME... UNSCH PRN .XX SEE LABEL COMMENTS; Start 03/27/17 at 19:05; Stop 03/28/17 at 19:04; Status DC Sodium Chloride 500 ml @ 500 mls/hr BOLUS ONCE IV ; Start 03/28/17 at 15:45; Stop 03/28/17 at 15:50; Status DC Pharmacy Profile Note 0 ml @ 0 mls/hr UNSCH OTHER ; Start 03/28/17 at 15:45; Stop 03/29/17 at 11:58; Status DC Vancomycin HCl 1251 mg/Sodium Chloride 512.51 ml @ 250 mls/ hr Q12H IV ; Start 03/28/17 at 17:00; Status Cancel Sodium Chloride 250 ml @ 250 mls/hr BOLUS ONCE IV Last administered on 15:55; Start 03/28/17 at 16:00; Stop 03/28/17 at 16:59; Status DC Vancomycin HCl 1000 mg/Sodium Chloride 250 ml @ 250 mls/hr Q12H IV Last administered on 03/29/17 05:29; Start 03/28/17 at 18:00; Stop 03/29/17 at 11:58; Status DC Miscellaneous Information SPECIFIC LAB TO BE ... ONCE ONCE .XX ; Start at 05:45; Stop 03/30/17 at 05:46; Status DC Cefazolin Sodium/ Dextrose 50 ml @ 100 mls/hr Q8H IV Last administered on 12:00; Start 03/28/17 at 20:00 Morphine Sulfate (Morphine Inj) 2 mg ONCE ONCE IV PUSH Last administered on 04:09; Start 03/29/17 at 04:15; Stop 03/29/17 at 04:16; Status DC Ciprofloxacin (Cipro) 750 mg Q12HR PO Last administered on 03/31/17 08:35; Start 03/29/17 at 21:00 Potassium Chloride (KCl) 40 meq ONCE ONCE PO Last administered on 03/30/17 08: 31; Start 03/30/17 at 08:15; Stop 03/30/17 at 08:19; Status DC Potassium Chloride (KCl) 40 meq ONCE ONCE PO Last administered on 03/30/17 11: 23; Start 03/30/17 at 11:00; Stop 03/30/17 at 11:01; Status DC Zolpidem Tartrate (Ambien) 10 mg HS PRN PO insomnia Last administered on 01:10; Start 03/30/17 at 21:00 Potassium Phosphate 30 mmol/ Sodium Chloride 260 ml @ 43.333 mls/ hr ONCE ONCE IV Last administered on 03/31/17 10:00; Start 03/31/17 at 10:00; Stop at 15:59; Status DC Potassium Phosphate 30 mmol/ Sodium Chloride 260 ml @ 43.333 mls/ hr ONCE ONCE IV ; Start 03/31/17 at 16:00; Stop 03/31/17 at 21:59 Urinary Catheter: Yes Assessment to: Continue Vascular Central Line Catheter: No A/P Problem List: (1) Pyelonephritis ICD Code: N12 - Tubulo-interstitial nephritis, not specified as acute or chronic Status: Acute (2) Hydronephrosis ICD Code: N13.30 - Unspecified hydronephrosis Status: Acute (3) Kidney stone ICD Code: N20.0 - Calculus of kidney Status: Acute Assessment and Plan [id number] with obstructed infected renal calculus and hydronephrosis went for cystoscopy and stent placement then complicated with acute septic shock secondary to likely bacteremia secondary to percutaneous nephrostomy tube placement. Patient transferred to ICU and joint cleaning machine operator was consulted yesterday, I discussed with Dr. Melo this morning he transferred patient back to hospitalist service she stabilized Septic Shock due to urine sepsis>> systolic blood pressure still 90s with increased heart rate above 100 Bacteremia mostly staph aureus, gram-positive cocci- STAPH AUREUS- DUVALL SENSITIVE Obstructing Ureteral calculus Urinary tract infection Urosepsis Positive staghorn calculus HYPOKALEMIA- REPLACE ORALLY Plan: -Continue monitoring-moved out of ICU - continue abx on per infectious disease - wean fio2 for spo2 > 90% -Iv fluid Incentive spirometry Echocardiogram per ID suggestion A.m. labs Discussed with patient and RN ADVANCE DIET CLEARS ONWARD AMBIEN FOR SLEEP REPLACE POTASSIUM Problem Qualifiers (1) Hydronephrosis: Qualified Codes: N13.2 - Hydronephrosis with renal and ureteral calculous obstruction Ganesh Aguirre DO Mar 31, 2017 17:27
[2017-04-01] VITALS: BP 104/65; PULSE 80; RESP 16; TEMP 99.1; O2SAT 94
[2017-04-01] MEDS: HYDROmorphone HCL PF 1 MG/ML VIAL IV PUSH PRN ×3 (02:02→12:41)
[2017-04-01] MEDS: ceFAZolin 2 GM PREMIX 50 ML IV SCH ×2 (03:17→12:41)
[2017-04-01 04:00] VITALS: BP 104/65; PULSE 83; RESP 16; TEMP 99.1; O2SAT 94
[2017-04-01] MEDS: LEVOTHYROXINE SODIUM 125 MCG TAB PO SCH (05:13)
[2017-04-01 05:33] LABS: AUTOMATED NEUTROPHIL # 8.4 TH/MM3 (1.8-7.7); BASOPHIL # 0.1 TH/MM3 (0-0.2); BASOPHIL % 0.5 % (0.0-2.0); EOSINOPHIL # 0.2 TH/MM3 (0-0.4); EOSINOPHIL % 1.9 % (0.0-4.0); HEMATOCRIT 32.3 % (35.0-46.0); LYMPH % 20.4 % (9.0-44.0); LYMPHOCYTE # 2.5 TH/MM3 (1.0-4.8); MEAN CELL VOLUME 97.7 FL (80.0-100.0); MEAN CORPUSCULAR HEMOGLOBIN 32.6 PG (27.0-34.0); MEAN CORPUSCULAR HGB CONC 33.4 % (32.0-36.0); MONO % 8.4 % (0.0-8.0); NEUT % 68.8 % (16.0-70.0); PLATELET COUNT 427 TH/MM3 (150-450); RED CELL DISTRIBUTION WIDTH 13.7 % (11.6-17.2); WHITE BLOOD COUNT 12.3 TH/MM3 (4.0-11.0)
[2017-04-01 05:38] LABS: HEMO FLAGS AUTO DIFF
[2017-04-01 05:57] LABS: ANION GAP 8 MEQ/L (5-15); AST (GOT) 16 U/L (15-37); BICARBONATE 26.2 MEQ/L (21.0-32.0); BLOOD UREA NITROGEN 7 MG/DL (7-18); CHLORIDE 101 MEQ/L (98-107); GLOMERULAR FILTRATION RATE 89 ML/MIN (>89); MAGNESIUM 1.9 MG/DL (1.5-2.5); POTASSIUM 3.5 MEQ/L (3.5-5.1); SODIUM (NA) 135 MEQ/L (136-145)
[2017-04-01 05:58] LABS: ALT (GPT) 16 U/L (10-53)
[2017-04-01 06:00] LABS: ALKALINE PHOSPHATASE 85 U/L (45-117); TOTAL BILIRUBIN ADULT 0.2 MG/DL (0.2-1.0)
[2017-04-01 08:00] VITALS: BP 92/50; PULSE 80; RESP 17; TEMP 98; O2SAT 92
[2017-04-01] MEDS: SODIUM CHLORIDE 0.9% FLUSH 10 ML FLUSH IV FLUSH SCH ×2 (08:28→20:31)
[2017-04-01] MEDS: buPROPion HCL 150 MG SUSTAINED RELEASE TAB PO SCH ×2 (08:28→20:31)
[2017-04-01] MEDS: CIPROFLOXACIN 750 MG TAB PO SCH (08:28)
[2017-04-01] MEDS: PANTOPRAZOLE SOD 20 MG DELAYED RELEASE TAB PO SCH (08:28)
[2017-04-01] MEDS: SODIUM CHLOR 0.9% 1000 ML INJ 1,000 ML IV SCH ×2 (08:35→20:29)
--- NOTE | 2017-04-01 09:12 | HHI.PR ---
Subjective Patient symptoms today Pt seen and examined. Some nausea with vomiting x 1 last night. Objective Vital Signs Vital Signs Date Time Temp Pulse Resp B/P (MAP) Pulse Ox O2 Delivery O2 Flow Rate FiO2 04/01/17 07:05 20 04/01/17 04:00 99.1 83 16 104/65 (78) 94 04/01/17 04:00 Room Air 04/01/17 00:00 Nasal Cannula 2.00 04/01/17 00:00 99.1 80 16 104/65 (78) 94 03/31/17 22:20 102/58 (73) 03/31/17 20:00 Nasal Cannula 2.00 03/31/17 20:00 97.4 81 16 91/55 (67) 93 03/31/17 17:42 97 Nasal Cannula 2.00 03/31/17 16:00 98.6 89 18 100/62 (75) 94 03/31/17 12:00 98.3 79 18 109/65 (80) 96 Intake & Output 04/01/17 04/01/17 07:00 19:00 Intake Total 471 ml Output Total 1550 ml Balance -1079 ml IV Total 471 ml Output Urine Total 800 ml Drainage Total 750 ml Result Diagram: 04/01/17 0500 04/01/17 0500 Objective Remarks Abd:soft, nt,nd Carreon and PCNT: urine is clear 04/01 Abd:soft, nt,nd Carreon and PCNT: urine is clear Medications and IVs Current Medications Medications (Trade) Dose Ordered Sig/Devan Route Start Time Stop Time Status Last Admin Sodium Chloride 1,000 ml @ 100 mls/hr Q10H IV 03/27/17 03:59 04/01/17 08:35 (NS Flush) 2 ml UNSCH PRN IV FLUSH 03/27/17 04:00 (NS Flush) 2 ml BID IV FLUSH 03/27/17 09:00 03/31/17 20:52 (Zofran Inj) 4 mg Q6H PRN IVP 03/27/17 04:00 03/31/17 15:48 (Narcan Inj) 0.4 mg UNSCH PRN IV 03/27/17 04:00 (Dilaudid Pf Inj) 0.5 mg Q4H PRN IV PUSH 03/27/17 04:00 04/01/17 06:35 (Wellbutrin Sr) 150 mg Q12HR PO 03/27/17 09:00 04/01/17 08:28 (Synthroid) 125 mcg DAILY@0600 PO 03/27/17 06:00 04/01/17 05:13 (Protonix) 20 mg DAILY PO 03/27/17 09:00 04/01/17 08:28 (Tylenol) 650 mg Q6H PRN PO 03/27/17 16:45 03/29/17 16:14 Cefazolin Sodium/ Dextrose 50 ml @ 100 mls/hr Q8H IV 03/28/17 20:00 04/01/17 03:17 (Cipro) 750 mg Q12HR PO 03/29/17 21:00 04/01/17 08:28 (Ambien) 10 mg HS PRN PO 03/30/17 21:00 03/31/17 23:49 Assessment and Plan Assessment and Plan 56-year-old female with findings of a large left staghorn calculus with moderate to severe hydronephrosis. Due to large stone would recommend a left percutaneous nephrostomy tube with nephroureteral stent. Check urine cultures and continue with IV antibiotics Will need left percutaneous nephrolithotomy after her infection has cleared as an outpatient. Thank you for the consult and allowing me to participate in care of this patient. 03/31/17 56-year-old female with findings of a large left staghorn calculus with moderate to severe hydronephrosis s/p Left PCNT with left JJ stent insertion Continue IV ABx Will need left percutaneous nephrolithotomy after her infection has cleared as an outpatient. 04/01 56-year-old female with findings of a large left staghorn calculus with moderate to severe hydronephrosis s/p Left PCNT with left JJ stent insertion Continue IV ABx Will need left percutaneous nephrolithotomy after her infection has cleared as an outpatient. Shar Morales DO Apr 01, 2017 09:12
[2017-04-01 09:17] LABS: BANDS 1 % (0-6); EOSINOPHILS 2 % (0-4); MYELOCYTES 3 % (0-0); NEUTROPHIL # MANUAL DIFF 8.7 TH/MM3 (1.8-7.7); PLATELET ESTIMATE SMEAR NORMAL (NORMAL); PLATELET MORPHOLOGY NORMAL (NORMAL); POLYS (SEG NEUTROPHILS) 67 % (16-70); SCAN/DIFF FINAL DIFF MANUAL; WBC DIFF SAMPLE 100
[2017-04-01 12:00] VITALS: BP 90/59; PULSE 79; RESP 16; TEMP 98.3; O2SAT 93
--- NOTE | 2017-04-01 13:23 | HHI.IDPN ---
Subjective Subjective Remarks Patient is a 56-year-old female, presented to the hospital with 1 day history of abdominal pain. She apparently started having problem in her back which is mostly on the left side on the day prior to admission, and then it started going to the front area. There was no nausea or vomiting, no fever or chills. Patient denies any urinary complaints. She has had prior back pain related to her injury and surgery, but this is different than her usual back pain. Evaluation in the ED showed a CAT scan with a large left staghorn calculus causing significant hydronephrosis and there is also stranding on the left kidney. Patient was evaluated by urology. She had placement of left percutaneous nephrostomy, and they tried putting in a tubing but it was successful. She subsequently underwent cystoscopy and placement of a long ureteric stent. She has been having intermittent fevers. She was initially hypotensive, and received fluid bolus with improvement in her blood pressure. Her blood culture and urine cultures are all growing staph aureus. Notes reviewed Temps ok Clinically doing well No new complaints No new (+) BC Antibiotics Ancef Cipro Lines PIV Past Medical History hypothyroid Hypertension Hyperlipidemia Depression Anxiety Nerve damage Back pain Past Surgical History C section x 3 Back surgery Allergies: Coded Allergies: amoxicillin (Verified Allergy, Intermediate, hives, 03/27/17) Objective . Vital Signs Date Time Temp Pulse Resp B/P (MAP) Pulse Ox O2 Delivery O2 Flow Rate FiO2 04/01/17 12:00 98.3 79 16 90/59 (69) 93 04/01/17 08:00 98.0 80 17 92/50 (64) 92 04/01/17 07:05 20 04/01/17 04:00 99.1 83 16 104/65 (78) 94 04/01/17 04:00 Room Air 04/01/17 00:00 Nasal Cannula 2.00 04/01/17 00:00 99.1 80 16 104/65 (78) 94 03/31/17 22:20 102/58 (73) 03/31/17 20:00 Nasal Cannula 2.00 03/31/17 20:00 97.4 81 16 91/55 (67) 93 03/31/17 17:42 97 Nasal Cannula 2.00 03/31/17 16:00 98.6 89 18 100/62 (75) 94 . Laboratory Tests Test 03/31/17 07:05 04/01/17 05:00 White Blood Count 12.2 TH/MM3 12.3 TH/MM3 Red Blood Count 3.25 MIL/MM3 3.30 MIL/MM3 Hemoglobin 10.6 GM/DL 10.8 GM/DL Hematocrit 31.0 % 32.3 % Mean Corpuscular Volume 95.6 FL 97.7 FL Mean Corpuscular Hemoglobin 32.6 PG 32.6 PG Mean Corpuscular Hemoglobin Concent 34.1 % 33.4 % Red Cell Distribution Width 13.5 % 13.7 % Platelet Count 378 TH/MM3 427 TH/MM3 Mean Platelet Volume 6.3 FL 6.2 FL Neutrophils (%) (Auto) 74.4 % 68.8 % Lymphocytes (%) (Auto) 16.9 % 20.4 % Monocytes (%) (Auto) 7.9 % 8.4 % Eosinophils (%) (Auto) 0.4 % 1.9 % Basophils (%) (Auto) 0.4 % 0.5 % Neutrophils # (Auto) 9.1 TH/MM3 8.4 TH/MM3 Lymphocytes # (Auto) 2.1 TH/MM3 2.5 TH/MM3 Monocytes # (Auto) 1.0 TH/MM3 1.0 TH/MM3 Eosinophils # (Auto) 0.0 TH/MM3 0.2 TH/MM3 Basophils # (Auto) 0.1 TH/MM3 0.1 TH/MM3 CBC Comment DIFF FINAL AUTO DIFF Differential Comment FINAL DIFF MANUAL Differential Total Cells Counted 100 Neutrophils % (Manual) 67 % Band Neutrophils % 1 % Lymphocytes % 23 % Monocytes % 4 % Eosinophils % 2 % Neutrophils # (Manual) 8.7 TH/MM3 Myelocytes 3 % Platelet Estimate NORMAL Platelet Morphology Comment NORMAL Red Cell Morphology Comment NORMAL Laboratory Tests Test 03/31/17 07:05 04/01/17 05:00 Blood Urea Nitrogen 6 MG/DL 7 MG/DL Creatinine 0.45 MG/DL 0.68 MG/DL Random Glucose 116 MG/DL 111 MG/DL Total Protein 6.6 GM/DL 6.8 GM/DL Albumin 2.2 GM/DL 2.3 GM/DL Calcium Level 8.4 MG/DL 8.5 MG/DL Phosphorus Level 2.2 MG/DL 3.2 MG/DL Magnesium Level 1.9 MG/DL 1.9 MG/DL Alkaline Phosphatase 84 U/L 85 U/L Aspartate Amino Transf (AST/SGOT) 15 U/L 16 U/L Alanine Aminotransferase (ALT/SGPT) 14 U/L 16 U/L Total Bilirubin 0.3 MG/DL 0.2 MG/DL Sodium Level 137 MEQ/L 135 MEQ/L Potassium Level 3.3 MEQ/L 3.5 MEQ/L Chloride Level 104 MEQ/L 101 MEQ/L Carbon Dioxide Level 26.0 MEQ/L 26.2 MEQ/L Anion Gap 7 MEQ/L 8 MEQ/L Estimat Glomerular Filtration Rate 143 ML/MIN 89 ML/MIN Microbiology Date/Time Source Procedure Growth Status 03/31/17 12:50 Urine Catheterized Urine Urine Culture - Preliminary NO GROWTH IN 24 HOURS. Resulted 03/31/17 12:50 Urine Other Urine Culture - Preliminary NO GROWTH IN 24 HOURS. Resulted Imaging Abdomen/Pelvis CT 03/27/17 0208 Signed Impressions: Service Date/Time: Monday, March 27, 2017 03:00 - CONCLUSION: 1. There is a left staghorn calculus in the renal pelvis causing moderate to severe left hydronephrosis and inflammatory changes of the renal pelvis and proximal left ureter. 2. There are additional nonobstructing stones in the left lower pole collecting system measuring up to 14 mm. Joselo Castro MD Lumbar Spine CT 03/27/17 0000 Signed Impressions: Service Date/Time: Monday, March 27, 2017 03:00 - CONCLUSION: 1. Mild spinal canal stenosis at L3-L4 secondary to disc bulge and facet arthrosis. 2. Postsurgical changes at L4-S1, as above. Joselo Castro MD Physical Exam GENERAL: awake and alert, not in respiratory distress. SKIN: Warm and dry. No generalized rash, no ecchymoses and no evidence of embolic lesions. HEAD: Atraumatic. Normocephalic. No temporal wasting, or tenderness. EYES: [place] conjunctiva. No petechia or hemorrhage. Pupils equal, round and reactive to light. No scleral icterus. No injection or drainage. EARS, NOSE AND THROAT: Nose without bleeding or purulent nasal discharge. Mucous membranes pink and moist. No oral lesions noted. NECK: Trachea midline. Supple and not tender, no meningeal signs CARDIOVASCULAR: Regular rate and rhythm. No murmurs, rubs or gallops heard RESPIRATORY: Clear to auscultation. Breath sounds equal bilaterally. No rales , wheezing or rhonchi ABDOMEN: Soft, nondistended. Bowel sounds present and normoactive. No abdominal tenderness. No guarding. No rebound. No organomegaly. BACK: Left percutaneous nephrostomy in place, with clear yellow urine EXTREMITIES: No clubbing, cyanosis, or edema.No joint effusion, has good ROM. No calf tenderness. Well perfused and warm. NEUROLOGICAL: Awake and alert. Cranial nerves grossly intact. Motor grossly within normal limits. PSYCHIATRIC: Normal affect, calm and cooperative. LINE: No evidence of infection Assessment & Plan Remarks IMPRESSION Urosepsis, due to complicated UTI, has obstructing staghorn calculus Staph aureus sepsis, and UTI - not a common uropathogen - due to staghorn calculus - echo negative RECOMMENDATION Stop Cipro for now Change to Rocephin - will use Rocephin for discharge PICC Give 14 days IV Abx on D/C, followed by po Levaquin until patient gets her urologic procedure - discussed with Dr Morales yesterday Arrange for home IV Abx Will be ok to D/C once arrangements made Explained plan to the patiInna Redi MD Apr 01, 2017 13:23
[2017-04-01] MEDS ORDERED: oxyCODONE/ACETAMINOPHEN 10 MG/325 MG TAB PO PRN (14:15)
--- NOTE | 2017-04-01 14:15 | HHI.PR ---
Subjective Remarks 9-3 Patient seen and examined Had some atypical chest pain last night with borderline troponins No change in EKG States she is congested today will get incentive spirometry continue on antibiotics per infectious disease Discussed with patient and RN's - advance diet from clears as tolerated AM LABS HAS INSOMNIA ADD AMBIEN MILD ABDOMINAL PAIN- MAY BE HUNGRY ADVANCE DIET HAD ECHO DW RN AND PT 9-5 TOLERATING A DIET CONTINUE ON IV ANTIBIOTICS NOT CLEARED BY ID OR UROLOGY YET FOR DC AM LABS -6 TO GET PICC LINE WILL NEED ROCEPHIN IV PER ID THEN PO LEVAQUIN AFTERWARD ADD PO PERCOCETS FOR PAIN CONTROL SLEEPING AND EATING BETTER HOPEFULLY HOME TOMORROW Objective Vitals Vital Signs Date Time Temp Pulse Resp B/P (MAP) Pulse Ox O2 Delivery O2 Flow Rate FiO2 04/01/17 12:00 98.3 79 16 90/59 (69) 93 04/01/17 08:00 98.0 80 17 92/50 (64) 92 04/01/17 07:05 20 04/01/17 04:00 99.1 83 16 104/65 (78) 94 04/01/17 04:00 Room Air 04/01/17 00:00 Nasal Cannula 2.00 04/01/17 00:00 99.1 80 16 104/65 (78) 94 03/31/17 22:20 102/58 (73) 03/31/17 20:00 Nasal Cannula 2.00 03/31/17 20:00 97.4 81 16 91/55 (67) 93 03/31/17 17:42 97 Nasal Cannula 2.00 03/31/17 16:00 98.6 89 18 100/62 (75) 94 I/O 03/31/17 03/31/17 03/31/17 04/01/17 04/01/17 04/01/17 07:00 15:00 23:00 07:00 15:00 23:00 Intake Total 290 ml 740 ml 421 ml Output Total 2300 ml 2175 ml 800 ml Balance -2010 ml -1435 ml -379 ml Intake Oral 240 ml 690 ml IV Total 50 ml 50 ml 421 ml Output Urine Total 1500 ml 1425 ml 800 ml Drainage Total 800 ml 750 ml # Bowel Movements 0 Result Diagram: 04/01/17 0500 04/01/17 0500 Other Results Laboratory Tests Test 03/30/17 05:30 9/5/17 07:05 03/31/17 12:50 04/01/17 05:00 White Blood Count 11.6 TH/MM3 12.2 TH/MM3 12.3 TH/MM3 Red Blood Count 3.04 MIL/MM3 3.25 MIL/MM3 3.30 MIL/MM3 Hemoglobin 10.1 GM/DL 10.6 GM/DL 10.8 GM/DL Hematocrit 29.4 % 31.0 % 32.3 % Mean Corpuscular Volume 96.8 FL 95.6 FL 97.7 FL Mean Corpuscular Hemoglobin 33.2 PG 32.6 PG 32.6 PG Mean Corpuscular Hemoglobin Concent 34.3 % 34.1 % 33.4 % Red Cell Distribution Width 13.8 % 13.5 % 13.7 % Platelet Count 314 TH/MM3 378 TH/MM3 427 TH/MM3 Mean Platelet Volume 6.6 FL 6.3 FL 6.2 FL Neutrophils (%) (Auto) 81.3 % 74.4 % 68.8 % Lymphocytes (%) (Auto) 10.3 % 16.9 % 20.4 % Monocytes (%) (Auto) 7.5 % 7.9 % 8.4 % Eosinophils (%) (Auto) 0.4 % 0.4 % 1.9 % Basophils (%) (Auto) 0.5 % 0.4 % 0.5 % Neutrophils # (Auto) 9.4 TH/MM3 9.1 TH/MM3 8.4 TH/MM3 Lymphocytes # (Auto) 1.2 TH/MM3 2.1 TH/MM3 2.5 TH/MM3 Monocytes # (Auto) 0.9 TH/MM3 1.0 TH/MM3 1.0 TH/MM3 Eosinophils # (Auto) 0.0 TH/MM3 0.0 TH/MM3 0.2 TH/MM3 Basophils # (Auto) 0.1 TH/MM3 0.1 TH/MM3 0.1 TH/MM3 CBC Comment DIFF FINAL DIFF FINAL AUTO DIFF Differential Comment FINAL DIFF MANUAL Blood Urea Nitrogen 6 MG/DL 6 MG/DL 7 MG/DL Creatinine 0.44 MG/DL 0.45 MG/DL 0.68 MG/DL Random Glucose 91 MG/DL 116 MG/DL 111 MG/DL Total Protein 6.6 GM/DL 6.6 GM/DL 6.8 GM/DL Albumin 2.3 GM/DL 2.2 GM/DL 2.3 GM/DL Calcium Level 8.5 MG/DL 8.4 MG/DL 8.5 MG/DL Phosphorus Level 2.9 MG/DL 2.2 MG/DL 3.2 MG/DL Magnesium Level 1.9 MG/DL 1.9 MG/DL 1.9 MG/DL Alkaline Phosphatase 81 U/L 84 U/L 85 U/L Aspartate Amino Transf (AST/SGOT) 16 U/L 15 U/L 16 U/L Alanine Aminotransferase (ALT/SGPT) 14 U/L 14 U/L 16 U/L Total Bilirubin 0.3 MG/DL 0.3 MG/DL 0.2 MG/DL Sodium Level 137 MEQ/L 137 MEQ/L 135 MEQ/L Potassium Level 2.9 MEQ/L 3.3 MEQ/L 3.5 MEQ/L Chloride Level 103 MEQ/L 104 MEQ/L 101 MEQ/L Carbon Dioxide Level 22.7 MEQ/L 26.0 MEQ/L 26.2 MEQ/L Anion Gap 11 MEQ/L 7 MEQ/L 8 MEQ/L Estimat Glomerular Filtration Rate 147 ML/MIN 143 ML/MIN 89 ML/MIN Hemoglobin A1c 5.8 % Total Creatine Kinase 108 U/L Creatine Kinase MB 1.0 NG/ML Troponin I 0.02 NG/ML Free Thyroxine 1.55 NG/DL Thyroid Stimulating Hormone 3rd Gen 0.787 uIU/ML Urine Color YELLOW Urine Turbidity CLEAR Urine pH 7.0 Urine Specific [place] 1.008 Urine Protein TRACE mg/dL Urine Glucose (UA) NEG mg/dL Urine Ketones NEG mg/dL Urine Occult Blood MOD Urine Nitrite NEG Urine Bilirubin NEG Urine Urobilinogen LESS THAN 2.0 MG/DL Urine Leukocyte Esterase LARGE Urine RBC 48 /hpf Urine WBC 39 /hpf Urine Bacteria RARE /hpf Urine Mucus FEW /lpf Microscopic Urinalysis Comment CATH-CULTURE IND Differential Total Cells Counted 100 Neutrophils % (Manual) 67 % Band Neutrophils % 1 % Lymphocytes % 23 % Monocytes % 4 % Eosinophils % 2 % Neutrophils # (Manual) 8.7 TH/MM3 Myelocytes 3 % Platelet Estimate NORMAL Platelet Morphology Comment NORMAL Red Cell Morphology Comment NORMAL Imaging Last Impressions Nephrostomy 03/27/17 0720 Signed Impressions: Service Date/Time: Monday, March 27, 2017 13:49 - CONCLUSION: Uncomplicated nephrostomy tube placement as above. The large staghorn calculi renal pelvis could not be passed Morro Pinon MD Abdomen/Pelvis CT 03/27/17 0208 Signed Impressions: Service Date/Time: Monday, March 27, 2017 03:00 - CONCLUSION: 1. There is a left staghorn calculus in the renal pelvis causing moderate to severe left hydronephrosis and inflammatory changes of the renal pelvis and proximal left ureter. 2. There are additional nonobstructing stones in the left lower pole collecting system measuring up to 14 mm. Joselo Castro MD Lumbar Spine CT 03/27/17 0000 Signed Impressions: Service Date/Time: Monday, March 27, 2017 03:00 - CONCLUSION: 1. Mild spinal canal stenosis at L3-L4 secondary to disc bulge and facet arthrosis. 2. Postsurgical changes at L4-S1, as above. Joselo Castro MD Objective Remarks GENERAL: Awake alert oriented talkative and cooperative SKIN: Warm and dry. HEAD: Atraumatic. Normocephalic. EYES: Pupils equal and round. No scleral icterus. No injection or drainage. ENT: No nasal bleeding or discharge. Mucous membranes pink and moist. Tongue is midline NECK: Trachea midline. No JVD. Supple CARDIOVASCULAR: Regular rate and rhythm. S1-S2 no S3 or S4 no heave or thrill or rub or gallop RESPIRATORY: No accessory muscle use. Clear to auscultation. Breath sounds equal bilaterally. GASTROINTESTINAL: Abdomen soft, MILDLY tender, nondistended. Hepatic and splenic margins not palpable. Carreon catheter in place MUSCULOSKELETAL: Extremities without clubbing, cyanosis, or edema. No obvious deformities. NEUROLOGICAL: Awake and alert. No obvious cranial nerve deficits. Motor grossly within normal limits. Five out of 5 muscle strength in the arms and legs. Normal speech. PSYCHIATRIC: Appropriate mood and affect; insight and judgment normal. Procedures Cystoscopy and left retrograde stent insertion Date of Surgery: Mar 27, 2017 Preoperative Diagnosis: (1) Staghorn renal calculus (2) Hydronephrosis, left Postoperative Diagnosis: (1) Hydronephrosis, left (2) Staghorn renal calculus Procedure: Cystoscopy, left retrograde pyelogram, placement of left half-way ureteral stent and left nephrostogram Post Procedure Progress Note Pre Procedure Diagnosis: (1) Pyelonephritis Post Procedure Diagnosis: (1) Pyelonephritis Procedure Date: Mar 27, 2017 Supervising Radiologist: Morro Pinon Proceduralist/Assist: Stephy Luciano, RT(R)(CV), Santiago Mandel, RT(R), Giselle Alaniz, RT(R) Anesthesia: Conscious Sedation Plan of Activity Patient to Unit: ROPU Patient Condition: Fair See PACS Report for procedural detail/treatment Drainage Procedure Procedure 1 Imaging Guidance: Fluoroscopy Side: Left Procedure Type: Nephrostomy Procedure: Evaluation (failed nephrostomy secondary to staghor, pyonephrosis with specimen sent to lab patient to [facility] for monitoring for sepsis) Medications and IVs Current Medications Morphine Sulfate (Morphine Inj) 4 mg ONCE ONCE IV PUSH Last administered on 02:35; Start 03/27/17 at 02:15; Stop 03/27/17 at 02:16; Status DC Ondansetron HCl (Zofran Inj) 4 mg ONCE ONCE IVP Last administered on 03/27/17 02:35; Start 03/27/17 at 02:15; Stop 03/27/17 at 02:16; Status DC Sodium Chloride 1,000 ml @ 1,000 mls/hr Q1H IV Last administered on 03/27/17 03:24; Start 03/27/17 at 02:36; Stop 03/27/17 at 03:35; Status DC Iohexol (Omnipaque 350 Inj) 100 ml STK-MED ONCE IVCONTRAST Last administered on 03/26/17 03:11; Start 03/26/17 at 03:11; Stop 03/27/17 at 03:11; Status DC Hydromorphone HCl (Dilaudid Pf Inj) 0.5 mg ONCE ONCE IV PUSH Last administered on 03/27/17 03:34; Start 03/27/17 at 03:30; Stop 03/27/17 at 03:31; Status DC Ceftriaxone Sodium 1000 mg/ Sodium Chloride 100 ml @ 200 mls/hr ONCE ONCE IV Last administered on 03/27/17 03:55; Start 03/27/17 at 03:45; Stop 03/27/17 at 04: 14; Status DC Ketorolac Tromethamine (Toradol Inj) 30 mg ONCE ONCE IV PUSH Last administered on 03/27/17 03:55; Start 03/27/17 at 03:45; Stop 03/27/17 at 03:46; Status DC Sodium Chloride 1,000 ml @ 100 mls/hr Q10H IV Last administered on 04/01/17 08 :35; Start 03/27/17 at 03:59 Sodium Chloride (NS Flush) 2 ml UNSCH PRN IV FLUSH FLUSH AFTER USING IV ACCESS ; Start 03/27/17 at 04:00 Sodium Chloride (NS Flush) 2 ml BID IV FLUSH Last administered on 03/31/17 20: 52; Start 03/27/17 at 09:00 Ondansetron HCl (Zofran Inj) 4 mg Q6H PRN IVP NAUSEA OR VOMITING Last administered on 03/31/17 15:48; Start 03/27/17 at 04:00 Naloxone HCl (Narcan Inj) 0.4 mg UNSCH PRN IV SEE LABEL COMMENTS; Start at 04:00 Hydromorphone HCl (Dilaudid Pf Inj) 0.5 mg Q4H PRN IV PUSH pain >5 Last administered on 04/01/17 12:41; Start 03/27/17 at 04:00 Ciprofloxacin/ Dextrose 200 ml @ 200 mls/hr Q12H IV Last administered on 04:27; Start 03/27/17 at 04:00; Stop 03/29/17 at 11:58; Status DC Bupropion HCl (Wellbutrin Sr) 150 mg Q12HR PO Last administered on 04/01/17 08: 28; Start 03/27/17 at 09:00 Levothyroxine Sodium (Synthroid) 125 mcg DAILY@0600 PO Last administered on 04/01 05:13; Start 03/27/17 at 06:00 Pantoprazole Sodium (Protonix) 20 mg DAILY PO Last administered on 04/01/17 08: 28; Start 03/27/17 at 09:00 Hydromorphone HCl (Dilaudid Pf Inj) 1 mg ONCE ONCE IV PUSH Last administered on 03/27/17 10:51; Start 03/27/17 at 10:45; Stop 03/27/17 at 10:46; Status DC Fentanyl Citrate (fentaNYL INJ) 200 mcg STK-MED ONCE .ROUTE Last administered on 03/27/17 13:32; Start 03/27/17 at 13:32; Stop 03/27/17 at 13:33; Status DC Midazolam HCl (Versed Inj) 2 mg STK-MED ONCE .ROUTE Last administered on 13:32; Start 03/27/17 at 13:32; Stop 03/27/17 at 13:33; Status DC Midazolam HCl (Versed Inj) 2 mg STK-MED ONCE .ROUTE Last administered on 13:32; Start 03/27/17 at 13:32; Stop 03/27/17 at 13:33; Status DC Levofloxacin/ Dextrose 100 ml @ As Directed STK-MED ONCE IV Last administered on 03/27/17 15:08; Start 03/27/17 at 15:08; Stop 03/27/17 at 15:09; Status DC Meperidine HCl (Demerol Inj) 50 mg STK-MED ONCE .ROUTE Last administered on 03/27 16:06; Start 03/27/17 at 16:06; Stop 03/27/17 at 16:07; Status DC Gentamicin Sulfate/Sodium Chloride 100 ml @ 200 mls/hr Q8H IV Last administered on 03/28/17 17:57; Start 03/27/17 at 17:00; Stop 03/28/17 at 18:07; Status DC Acetaminophen (Ofirmev 1000 Mg/ 100 ml Inj) 1,000 mg NOW ONCE IV Last administered on 03/27/17 16:37; Start 03/27/17 at 16:45; Stop 03/27/17 at 16:46; Status DC Acetaminophen (Tylenol) 650 mg Q6H PRN PO TEMPERATURE > 100.4 F Last administered on 03/29/17 16:14; Start 03/27/17 at 16:45 Iohexol (Omnipaque 350 Inj) 40 ml STK-MED ONCE .XX Last administered on 18:37; Start 03/27/17 at 18:37; Stop 03/27/17 at 18:38; Status DC Norepinephrine Bitartrate (Levophed Inj) 4 mg STK-MED ONCE .ROUTE Last administered on 03/27/17 18:59; Start 03/27/17 at 18:59; Stop 03/27/17 at 19:00; Status DC Fentanyl Citrate (fentaNYL INJ) 100 mcg STK-MED ONCE .ROUTE ; Start 03/27/17 at 19:13; Stop 03/27/17 at 19:14; Status DC Miscellaneous Information ALL NURSING DEPARTME... UNSCH PRN .XX SEE LABEL COMMENTS; Start 03/27/17 at 19:05; Stop 03/28/17 at 19:04; Status DC Sodium Chloride 500 ml @ 500 mls/hr BOLUS ONCE IV ; Start 03/28/17 at 15:45; Stop 03/28/17 at 15:50; Status DC Pharmacy Profile Note 0 ml @ 0 mls/hr UNSCH OTHER ; Start 03/28/17 at 15:45; Stop 03/29/17 at 11:58; Status DC Vancomycin HCl 1251 mg/Sodium Chloride 512.51 ml @ 250 mls/ hr Q12H IV ; Start 03/28/17 at 17:00; Status Cancel Sodium Chloride 250 ml @ 250 mls/hr BOLUS ONCE IV Last administered on 15:55; Start 03/28/17 at 16:00; Stop 03/28/17 at 16:59; Status DC Vancomycin HCl 1000 mg/Sodium Chloride 250 ml @ 250 mls/hr Q12H IV Last administered on 03/29/17 05:29; Start 03/28/17 at 18:00; Stop 03/29/17 at 11:58; Status DC Miscellaneous Information SPECIFIC LAB TO BE ... ONCE ONCE .XX ; Start at 05:45; Stop 03/30/17 at 05:46; Status DC Cefazolin Sodium/ Dextrose 50 ml @ 100 mls/hr Q8H IV Last administered on 12:41; Start 03/28/17 at 20:00; Stop 04/01/17 at 13:24; Status DC Morphine Sulfate (Morphine Inj) 2 mg ONCE ONCE IV PUSH Last administered on 04:09; Start 03/29/17 at 04:15; Stop 03/29/17 at 04:16; Status DC Ciprofloxacin (Cipro) 750 mg Q12HR PO Last administered on 04/01/17 08:28; Start 03/29/17 at 21:00; Stop 04/01/17 at 13:21; Status DC Potassium Chloride (KCl) 40 meq ONCE ONCE PO Last administered on 03/30/17 08: 31; Start 03/30/17 at 08:15; Stop 03/30/17 at 08:19; Status DC Potassium Chloride (KCl) 40 meq ONCE ONCE PO Last administered on 03/30/17 11: 23; Start 03/30/17 at 11:00; Stop 03/30/17 at 11:01; Status DC Zolpidem Tartrate (Ambien) 10 mg HS PRN PO insomnia Last administered on 23:49; Start 03/30/17 at 21:00 Potassium Phosphate 30 mmol/ Sodium Chloride 260 ml @ 43.333 mls/ hr ONCE ONCE IV Last administered on 03/31/17 10:00; Start 03/31/17 at 10:00; Stop at 15:59; Status DC Potassium Phosphate 30 mmol/ Sodium Chloride 260 ml @ 43.333 mls/ hr ONCE ONCE IV Last administered on 03/31/17 19:29; Start 03/31/17 at 16:00; Stop at 21:59; Status DC Ceftriaxone Sodium 2000 mg/ Sodium Chloride 100 ml @ 200 mls/hr Q24H IV ; Start 04/01/17 at 15:00 Urinary Catheter: Yes Assessment to: Continue Carreon insert reason: Obstruction/Retention Vascular Central Line Catheter: No A/P Problem List: (1) Pyelonephritis ICD Code: N12 - Tubulo-interstitial nephritis, not specified as acute or chronic Status: Acute (2) Hydronephrosis ICD Code: N13.30 - Unspecified hydronephrosis Status: Acute (3) Kidney stone ICD Code: N20.0 - Calculus of kidney Status: Acute Assessment and Plan [id number] with obstructed infected renal calculus and hydronephrosis went for cystoscopy and stent placement then complicated with acute septic shock secondary to likely bacteremia secondary to percutaneous nephrostomy tube placement. Patient transferred to ICU and enhanced environmental operator was consulted yesterday, I discussed with Dr. Melo this morning he transferred patient back to hospitalist service she stabilized Septic Shock due to urine sepsis>> systolic blood pressure still 90s with increased heart rate above 100 Bacteremia mostly staph aureus, gram-positive cocci- STAPH AUREUS- DUVALL SENSITIVE Obstructing Ureteral calculus Urinary tract infection Urosepsis Positive staghorn calculus HYPOKALEMIA- REPLACE ORALLY Plan: -Continue monitoring-moved out of ICU - continue abx on per infectious disease - wean fio2 for spo2 > 90% -Iv fluid Incentive spirometry Echocardiogram per ID suggestion A.m. labs Discussed with patient and RN TOLERATING FULL DIET AMBIEN FOR SLEEP REPLACE POTASSIUM NEEDS PICC FOR ANTIBIOTICS- ROCEPHIN PERCOCET FOR PAIN SWITCH TO ORALS Problem Qualifiers (1) Hydronephrosis: Qualified Codes: N13.2 - Hydronephrosis with renal and ureteral calculous obstruction Ganesh Aguirre DO Apr 01, 2017 14:15
[2017-04-01] MEDS: cefTRIAXone INJ 2,000 MG in SODIUM CHLORIDE 0.9% INJ 100 ML IV SCH (14:55)
[2017-04-01 16:00] VITALS: BP 92/54; PULSE 86; RESP 16; TEMP 97.8; O2SAT 92
[2017-04-01] MEDS: oxyCODONE/ACETAMINOPHEN 5 MG/325 MG TAB PO PRN ×2 (17:48→22:15)
[2017-04-01 20:00] VITALS: BP 86/50; PULSE 85; RESP 18; TEMP 99.6; O2SAT 96
[2017-04-01] MEDS: ZOLPIDEM TARTRATE 10 MG TAB PO PRN (20:30)
[2017-04-02] VITALS (7 sets, daily range): BP systolic 85–108; BP diastolic 51–66; PULSE 75–95; RESP 14–18; TEMP 97.7–99.2; O2SAT 93–98
[2017-04-02] MEDS: LEVOTHYROXINE SODIUM 125 MCG TAB PO SCH (05:45)
[2017-04-02] MEDS: oxyCODONE/ACETAMINOPHEN 5 MG/325 MG TAB PO PRN ×2 (05:45→11:46)
[2017-04-02 07:10] LABS: AUTOMATED NEUTROPHIL # 5.2 TH/MM3 (1.8-7.7); BASOPHIL # 0.1 TH/MM3 (0-0.2); EOSINOPHIL # 0.4 TH/MM3 (0-0.4); EOSINOPHIL % 4.7 % (0.0-4.0); HEMATOCRIT 29.6 % (35.0-46.0); LYMPH % 25.4 % (9.0-44.0); LYMPHOCYTE # 2.2 TH/MM3 (1.0-4.8); MEAN CELL VOLUME 97.2 FL (80.0-100.0); MEAN CORPUSCULAR HEMOGLOBIN 33.4 PG (27.0-34.0); MEAN CORPUSCULAR HGB CONC 34.3 % (32.0-36.0); MONO % 8.3 % (0.0-8.0); NEUT % 60.6 % (16.0-70.0); PLATELET COUNT 408 TH/MM3 (150-450); RED BLOOD COUNT 3.04 MIL/MM3 (4.00-5.30); RED CELL DISTRIBUTION WIDTH 14.1 % (11.6-17.2); WHITE BLOOD COUNT 8.6 TH/MM3 (4.0-11.0)
[2017-04-02 07:19] LABS: HEMO FLAGS AUTO DIFF
[2017-04-02] MEDS: SODIUM CHLOR 0.9% 1000 ML INJ 1,000 ML IV SCH ×2 (07:30→18:07)
[2017-04-02 07:47] LABS: ALT (GPT) 15 U/L (10-53); ANION GAP 6 MEQ/L (5-15); AST (GOT) 17 U/L (15-37); BICARBONATE 25.5 MEQ/L (21.0-32.0); BLOOD UREA NITROGEN 7 MG/DL (7-18); CHLORIDE 108 MEQ/L (98-107); GLOMERULAR FILTRATION RATE 111 ML/MIN (>89); POTASSIUM 3.9 MEQ/L (3.5-5.1); SODIUM (NA) 139 MEQ/L (136-145)
[2017-04-02 07:49] LABS: ALKALINE PHOSPHATASE 74 U/L (45-117); TOTAL BILIRUBIN ADULT 0.2 MG/DL (0.2-1.0)
--- NOTE | 2017-04-02 07:57 | HHI.PR ---
Subjective Patient symptoms today Pt seen and examined. Feeling better. Nausea resolved. Objective Vital Signs Vital Signs Date Time Temp Pulse Resp B/P (MAP) Pulse Ox O2 Delivery O2 Flow Rate FiO2 04/02/17 01:30 101/52 (68) 04/02/17 00:00 99.0 90 18 85/51 (62) 94 04/01/17 20:00 99.6 85 18 86/50 (62) 96 04/01/17 16:00 97.8 86 16 92/54 (67) 92 04/01/17 12:00 98.3 79 16 90/59 (69) 93 04/01/17 08:00 98.0 80 17 92/50 (64) 92 Intake & Output 04/02/17 04/02/17 06:59 18:59 Output Total 1250 ml Balance -1250 ml Output Urine Total 800 ml Drainage Total 450 ml # Bowel Movements 0 Result Diagram: 04/02/17 0636 04/02/17 0636 Objective Remarks Abd:soft, nt,nd Carreon and PCNT: urine is clear 04/01 Abd:soft, nt,nd Carreon and PCNT: urine is clear 04/02 Abd:soft,nt,nd Carreon and Left PCNT: clear urine Medications and IVs Current Medications Medications (Trade) Dose Ordered Sig/Devan Route Start Time Stop Time Status Last Admin Sodium Chloride 1,000 ml @ 100 mls/hr Q10H IV 03/27/17 03:59 04/01/17 20:29 (NS Flush) 2 ml UNSCH PRN IV FLUSH 03/27/17 04:00 (NS Flush) 2 ml BID IV FLUSH 03/27/17 09:00 04/01/17 20:31 (Zofran Inj) 4 mg Q6H PRN IVP 03/27/17 04:00 03/31/17 15:48 (Narcan Inj) 0.4 mg UNSCH PRN IV 03/27/17 04:00 (Dilaudid Pf Inj) 0.5 mg Q4H PRN IV PUSH 03/27/17 04:00 04/01/17 12:41 (Wellbutrin Sr) 150 mg Q12HR PO 03/27/17 09:00 04/01/17 08:28 (Synthroid) 125 mcg DAILY@0600 PO 03/27/17 06:00 04/02/17 05:45 (Protonix) 20 mg DAILY PO 03/27/17 09:00 04/01/17 08:28 (Tylenol) 650 mg Q6H PRN PO 03/27/17 16:45 03/29/17 16:14 (Ambien) 10 mg HS PRN PO 03/30/17 21:00 04/01/17 20:30 Ceftriaxone Sodium 2000 mg/ Sodium Chloride 100 ml @ 200 mls/hr Q24H IV 04/01/17 15:00 04/01/17 14:55 (Percocet 5-325 Mg) 1 tab Q4H PRN PO 04/01/17 14:15 04/02/17 05:45 (Percocet 10-325 Mg) 1 tab Q4H PRN PO 04/01/17 14:15 Assessment and Plan Assessment and Plan 56-year-old female with findings of a large left staghorn calculus with moderate to severe hydronephrosis. Due to large stone would recommend a left percutaneous nephrostomy tube with nephroureteral stent. Check urine cultures and continue with IV antibiotics Will need left percutaneous nephrolithotomy after her infection has cleared as an outpatient. Thank you for the consult and allowing me to participate in care of this patient. 03/31/17 56-year-old female with findings of a large left staghorn calculus with moderate to severe hydronephrosis s/p Left PCNT with left JJ stent insertion Continue IV ABx Will need left percutaneous nephrolithotomy after her infection has cleared as an outpatient. 04/01 56-year-old female with findings of a large left staghorn calculus with moderate to severe hydronephrosis s/p Left PCNT with left JJ stent insertion Continue IV ABx Will need left percutaneous nephrolithotomy after her infection has cleared as an outpatient. 04/02 56-year-old female with findings of a large left staghorn calculus with moderate to severe hydronephrosis s/p Left PCNT with left JJ stent insertion Continue IV ABx as outpt followed by a course of PO abx. Pt s/p PICC line yesterday. Void trial today Will need left percutaneous nephrolithotomy after her infection has cleared as an outpatient. F/U in office in 2 weeks. Shar Morales DO Apr 02, 2017 07:57
[2017-04-02 09:15] LABS: BANDS 1 % (0-6); BASOPHILS 1 % (0-2); EOSINOPHILS 5 % (0-4); MYELOCYTES 2 % (0-0); NEUTROPHIL # MANUAL DIFF 4.9 TH/MM3 (1.8-7.7); PLATELET ESTIMATE SMEAR NORMAL (NORMAL); PLATELET MORPHOLOGY NORMAL (NORMAL); POLYS (SEG NEUTROPHILS) 54 % (16-70); SCAN/DIFF FINAL DIFF MANUAL; WBC DIFF SAMPLE 100
[2017-04-02] MEDS: PANTOPRAZOLE SOD 20 MG DELAYED RELEASE TAB PO SCH (09:32)
[2017-04-02] MEDS: buPROPion HCL 150 MG SUSTAINED RELEASE TAB PO SCH (09:34)
[2017-04-02] MEDS: SODIUM CHLORIDE 0.9% FLUSH 10 ML FLUSH IV FLUSH SCH (09:36)
--- NOTE | 2017-04-02 11:28 | HHI.PR ---
Subjective Remarks 9-3 Patient seen and examined Had some atypical chest pain last night with borderline troponins No change in EKG States she is congested today will get incentive spirometry continue on antibiotics per infectious disease Discussed with patient and RN's -4 advance diet from clears as tolerated AM LABS HAS INSOMNIA ADD AMBIEN MILD ABDOMINAL PAIN- MAY BE HUNGRY ADVANCE DIET HAD ECHO DW RN AND PT 9-5 TOLERATING A DIET CONTINUE ON IV ANTIBIOTICS NOT CLEARED BY ID OR UROLOGY YET FOR DC AM LABS 9-6 TO GET PICC LINE WILL NEED ROCEPHIN IV PER ID THEN PO LEVAQUIN AFTERWARD ADD PO PERCOCETS FOR PAIN CONTROL SLEEPING AND EATING BETTER HOPEFULLY HOME TOMORROW 9-7 patient to go to SNF today for IV antibiotics. Rocephin 1 g IV daily for 14 days then Levaquin afterwards Continue on monitoring her percutaneous nephrostomy tube Had midline place yesterday DC to SNF today [id number] filled out see paperwork Objective Vitals Vital Signs Date Time Temp Pulse Resp B/P (MAP) Pulse Ox O2 Delivery O2 Flow Rate FiO2 04/02/17 08:00 98.2 80 18 103/57 (72) 95 04/02/17 01:30 101/52 (68) 04/02/17 00:00 99.0 90 18 85/51 (62) 94 04/01/17 20:00 99.6 85 18 86/50 (62) 96 04/01/17 16:00 97.8 86 16 92/54 (67) 92 04/01/17 12:00 98.3 79 16 90/59 (69) 93 I/O 04/01/17 04/01/17 04/01/17 04/02/17 04/02/17 04/02/17 06:59 14:59 22:59 06:59 14:59 22:59 Intake Total 421 ml 960 ml Output Total 800 ml 1600 ml 1250 ml 375 ml Balance -379 ml -640 ml -1250 ml -375 ml Intake Oral 960 ml IV Total 421 ml Output Urine Total 800 ml 1000 ml 800 ml 375 ml Drainage Total 600 ml 450 ml # Bowel Movements 0 0 Result Diagram: 04/02/17 0636 04/02/17 0636 Other Results Laboratory Tests Test 03/31/17 07:05 03/31/17 12:50 04/01/17 05:00 04/02/17 06:36 White Blood Count 12.2 TH/MM3 12.3 TH/MM3 8.6 TH/MM3 Red Blood Count 3.25 MIL/MM3 3.30 MIL/MM3 3.04 MIL/MM3 Hemoglobin 10.6 GM/DL 10.8 GM/DL 10.2 GM/DL Hematocrit 31.0 % 32.3 % 29.6 % Mean Corpuscular Volume 95.6 FL 97.7 FL 97.2 FL Mean Corpuscular Hemoglobin 32.6 PG 32.6 PG 33.4 PG Mean Corpuscular Hemoglobin Concent 34.1 % 33.4 % 34.3 % Red Cell Distribution Width 13.5 % 13.7 % 14.1 % Platelet Count 378 TH/MM3 427 TH/MM3 408 TH/MM3 Mean Platelet Volume 6.3 FL 6.2 FL 6.4 FL Neutrophils (%) (Auto) 74.4 % 68.8 % 60.6 % Lymphocytes (%) (Auto) 16.9 % 20.4 % 25.4 % Monocytes (%) (Auto) 7.9 % 8.4 % 8.3 % Eosinophils (%) (Auto) 0.4 % 1.9 % 4.7 % Basophils (%) (Auto) 0.4 % 0.5 % 1.0 % Neutrophils # (Auto) 9.1 TH/MM3 8.4 TH/MM3 5.2 TH/MM3 Lymphocytes # (Auto) 2.1 TH/MM3 2.5 TH/MM3 2.2 TH/MM3 Monocytes # (Auto) 1.0 TH/MM3 1.0 TH/MM3 0.7 TH/MM3 Eosinophils # (Auto) 0.0 TH/MM3 0.2 TH/MM3 0.4 TH/MM3 Basophils # (Auto) 0.1 TH/MM3 0.1 TH/MM3 0.1 TH/MM3 CBC Comment DIFF FINAL AUTO DIFF AUTO DIFF Differential Comment FINAL DIFF MANUAL FINAL DIFF MANUAL Blood Urea Nitrogen 6 MG/DL 7 MG/DL 7 MG/DL Creatinine 0.45 MG/DL 0.68 MG/DL 0.56 MG/DL Random Glucose 116 MG/DL 111 MG/DL 118 MG/DL Total Protein 6.6 GM/DL 6.8 GM/DL 6.2 GM/DL Albumin 2.2 GM/DL 2.3 GM/DL 2.0 GM/DL Calcium Level 8.4 MG/DL 8.5 MG/DL 8.1 MG/DL Phosphorus Level 2.2 MG/DL 3.2 MG/DL 2.4 MG/DL Magnesium Level 1.9 MG/DL 1.9 MG/DL 2.0 MG/DL Alkaline Phosphatase 84 U/L 85 U/L 74 U/L Aspartate Amino Transf (AST/SGOT) 15 U/L 16 U/L 17 U/L Alanine Aminotransferase (ALT/SGPT) 14 U/L 16 U/L 15 U/L Total Bilirubin 0.3 MG/DL 0.2 MG/DL 0.2 MG/DL Sodium Level 137 MEQ/L 135 MEQ/L 139 MEQ/L Potassium Level 3.3 MEQ/L 3.5 MEQ/L 3.9 MEQ/L Chloride Level 104 MEQ/L 101 MEQ/L 108 MEQ/L Carbon Dioxide Level 26.0 MEQ/L 26.2 MEQ/L 25.5 MEQ/L Anion Gap 7 MEQ/L 8 MEQ/L 6 MEQ/L Estimat Glomerular Filtration Rate 143 ML/MIN 89 ML/MIN 111 ML/MIN Urine Color YELLOW Urine Turbidity CLEAR Urine pH 7.0 Urine Specific [place] 1.008 Urine Protein TRACE mg/dL Urine Glucose (UA) NEG mg/dL Urine Ketones NEG mg/dL Urine Occult Blood MOD Urine Nitrite NEG Urine Bilirubin NEG Urine Urobilinogen LESS THAN 2.0 MG/DL Urine Leukocyte Esterase LARGE Urine RBC 48 /hpf Urine WBC 39 /hpf Urine Bacteria RARE /hpf Urine Mucus FEW /lpf Microscopic Urinalysis Comment CATH-CULTURE IND Differential Total Cells Counted 100 100 Neutrophils % (Manual) 67 % 54 % Band Neutrophils % 1 % 1 % Lymphocytes % 23 % 30 % Monocytes % 4 % 7 % Eosinophils % 2 % 5 % Neutrophils # (Manual) 8.7 TH/MM3 4.9 TH/MM3 Myelocytes 3 % 2 % Platelet Estimate NORMAL NORMAL Platelet Morphology Comment NORMAL NORMAL Red Cell Morphology Comment NORMAL Basophils % 1 % Imaging Last Impressions Nephrostomy 03/27/17 0720 Signed Impressions: Service Date/Time: Monday, March 27, 2017 13:49 - CONCLUSION: Uncomplicated nephrostomy tube placement as above. The large staghorn calculi renal pelvis could not be passed Morro Pinon MD Abdomen/Pelvis CT 03/27/17 0208 Signed Impressions: Service Date/Time: Monday, March 27, 2017 03:00 - CONCLUSION: 1. There is a left staghorn calculus in the renal pelvis causing moderate to severe left hydronephrosis and inflammatory changes of the renal pelvis and proximal left ureter. 2. There are additional nonobstructing stones in the left lower pole collecting system measuring up to 14 mm. Joselo Castro MD Lumbar Spine CT 03/27/17 0000 Signed Impressions: Service Date/Time: Monday, March 27, 2017 03:00 - CONCLUSION: 1. Mild spinal canal stenosis at L3-L4 secondary to disc bulge and facet arthrosis. 2. Postsurgical changes at L4-S1, as above. Joselo Castro MD Objective Remarks GENERAL: Awake alert oriented talkative and cooperative SKIN: Warm and dry. HEAD: Atraumatic. Normocephalic. EYES: Pupils equal and round. No scleral icterus. No injection or drainage. ENT: No nasal bleeding or discharge. Mucous membranes pink and moist. Tongue is midline NECK: Trachea midline. No JVD. Supple CARDIOVASCULAR: Regular rate and rhythm. S1-S2 no S3 or S4 no heave or thrill or rub or gallop RESPIRATORY: No accessory muscle use. Clear to auscultation. Breath sounds equal bilaterally. GASTROINTESTINAL: Abdomen soft, MILDLY tender, nondistended. Hepatic and splenic margins not palpable. Carreon catheter in place MUSCULOSKELETAL: Extremities without clubbing, cyanosis, or edema. No obvious deformities. NEUROLOGICAL: Awake and alert. No obvious cranial nerve deficits. Motor grossly within normal limits. Five out of 5 muscle strength in the arms and legs. Normal speech. PSYCHIATRIC: Appropriate mood and affect; insight and judgment normal. Procedures Cystoscopy and left retrograde stent insertion Date of Surgery: Mar 27, 2017 Preoperative Diagnosis: (1) Staghorn renal calculus (2) Hydronephrosis, left Postoperative Diagnosis: (1) Hydronephrosis, left (2) Staghorn renal calculus Procedure: Cystoscopy, left retrograde pyelogram, placement of left exterminator ureteral stent and left nephrostogram Post Procedure Progress Note Pre Procedure Diagnosis: (1) Pyelonephritis Post Procedure Diagnosis: (1) Pyelonephritis Procedure Date: Mar 27, 2017 Supervising Radiologist: Morro Pinon Proceduralist/Assist: Stephy Luciano, RT(R)(CV), Santiago Mandel, RT(R), Giselle Alaniz, RT(R) Anesthesia: Conscious Sedation Plan of Activity Patient to Unit: ROPU Patient Condition: Fair See PACS Report for procedural detail/treatment Drainage Procedure Procedure 1 Imaging Guidance: Fluoroscopy Side: Left Procedure Type: Nephrostomy Procedure: Evaluation (failed nephrostomy secondary to staghor, pyonephrosis with specimen sent to lab patient to [facility] for monitoring for sepsis) Medications and IVs Current Medications Morphine Sulfate (Morphine Inj) 4 mg ONCE ONCE IV PUSH Last administered on 02:35; Start 03/27/17 at 02:15; Stop 03/27/17 at 02:16; Status DC Ondansetron HCl (Zofran Inj) 4 mg ONCE ONCE IVP Last administered on 03/27/17 02:35; Start 03/27/17 at 02:15; Stop 03/27/17 at 02:16; Status DC Sodium Chloride 1,000 ml @ 1,000 mls/hr Q1H IV Last administered on 03/27/17 03:24; Start 03/27/17 at 02:36; Stop 03/27/17 at 03:35; Status DC Iohexol (Omnipaque 350 Inj) 100 ml STK-MED ONCE IVCONTRAST Last administered on 03/26/17 03:11; Start 03/26/17 at 03:11; Stop 03/27/17 at 03:11; Status DC Hydromorphone HCl (Dilaudid Pf Inj) 0.5 mg ONCE ONCE IV PUSH Last administered on 03/27/17 03:34; Start 03/27/17 at 03:30; Stop 03/27/17 at 03:31; Status DC Ceftriaxone Sodium 1000 mg/ Sodium Chloride 100 ml @ 200 mls/hr ONCE ONCE IV Last administered on 03/27/17 03:55; Start 03/27/17 at 03:45; Stop 03/27/17 at 04: 14; Status DC Ketorolac Tromethamine (Toradol Inj) 30 mg ONCE ONCE IV PUSH Last administered on 03/27/17 03:55; Start 03/27/17 at 03:45; Stop 03/27/17 at 03:46; Status DC Sodium Chloride 1,000 ml @ 100 mls/hr Q10H IV Last administered on 04/01/17 20 :29; Start 03/27/17 at 03:59 Sodium Chloride (NS Flush) 2 ml UNSCH PRN IV FLUSH FLUSH AFTER USING IV ACCESS ; Start 03/27/17 at 04:00 Sodium Chloride (NS Flush) 2 ml BID IV FLUSH Last administered on 04/02/17 09: 36; Start 03/27/17 at 09:00 Ondansetron HCl (Zofran Inj) 4 mg Q6H PRN IVP NAUSEA OR VOMITING Last administered on 03/31/17 15:48; Start 03/27/17 at 04:00 Naloxone HCl (Narcan Inj) 0.4 mg UNSCH PRN IV SEE LABEL COMMENTS; Start at 04:00 Hydromorphone HCl (Dilaudid Pf Inj) 0.5 mg Q4H PRN IV PUSH pain >5 Last administered on 04/01/17 12:41; Start 03/27/17 at 04:00 Ciprofloxacin/ Dextrose 200 ml @ 200 mls/hr Q12H IV Last administered on 04:27; Start 03/27/17 at 04:00; Stop 03/29/17 at 11:58; Status DC Bupropion HCl (Wellbutrin Sr) 150 mg Q12HR PO Last administered on 04/02/17 09: 34; Start 03/27/17 at 09:00 Levothyroxine Sodium (Synthroid) 125 mcg DAILY@0600 PO Last administered on 04/02 05:45; Start 03/27/17 at 06:00 Pantoprazole Sodium (Protonix) 20 mg DAILY PO Last administered on 04/02/17 09: 32; Start 03/27/17 at 09:00 Hydromorphone HCl (Dilaudid Pf Inj) 1 mg ONCE ONCE IV PUSH Last administered on 03/27/17 10:51; Start 03/27/17 at 10:45; Stop 03/27/17 at 10:46; Status DC Fentanyl Citrate (fentaNYL INJ) 200 mcg STK-MED ONCE .ROUTE Last administered on 03/27/17 13:32; Start 03/27/17 at 13:32; Stop 03/27/17 at 13:33; Status DC Midazolam HCl (Versed Inj) 2 mg STK-MED ONCE .ROUTE Last administered on 13:32; Start 03/27/17 at 13:32; Stop 03/27/17 at 13:33; Status DC Midazolam HCl (Versed Inj) 2 mg STK-MED ONCE .ROUTE Last administered on 13:32; Start 03/27/17 at 13:32; Stop 03/27/17 at 13:33; Status DC Levofloxacin/ Dextrose 100 ml @ As Directed STK-MED ONCE IV Last administered on 03/27/17 15:08; Start 03/27/17 at 15:08; Stop 03/27/17 at 15:09; Status DC Meperidine HCl (Demerol Inj) 50 mg STK-MED ONCE .ROUTE Last administered on 03/27 16:06; Start 03/27/17 at 16:06; Stop 03/27/17 at 16:07; Status DC Gentamicin Sulfate/Sodium Chloride 100 ml @ 200 mls/hr Q8H IV Last administered on 03/28/17 17:57; Start 03/27/17 at 17:00; Stop 03/28/17 at 18:07; Status DC Acetaminophen (Ofirmev 1000 Mg/ 100 ml Inj) 1,000 mg NOW ONCE IV Last administered on 03/27/17 16:37; Start 03/27/17 at 16:45; Stop 03/27/17 at 16:46; Status DC Acetaminophen (Tylenol) 650 mg Q6H PRN PO TEMPERATURE > 100.4 F Last administered on 03/29/17 16:14; Start 03/27/17 at 16:45 Iohexol (Omnipaque 350 Inj) 40 ml STK-MED ONCE .XX Last administered on 18:37; Start 03/27/17 at 18:37; Stop 03/27/17 at 18:38; Status DC Norepinephrine Bitartrate (Levophed Inj) 4 mg STK-MED ONCE .ROUTE Last administered on 03/27/17 18:59; Start 03/27/17 at 18:59; Stop 03/27/17 at 19:00; Status DC Fentanyl Citrate (fentaNYL INJ) 100 mcg STK-MED ONCE .ROUTE ; Start 03/27/17 at 19:13; Stop 03/27/17 at 19:14; Status DC Miscellaneous Information ALL NURSING DEPARTME... UNSCH PRN .XX SEE LABEL COMMENTS; Start 03/27/17 at 19:05; Stop 03/28/17 at 19:04; Status DC Sodium Chloride 500 ml @ 500 mls/hr BOLUS ONCE IV ; Start 03/28/17 at 15:45; Stop 03/28/17 at 15:50; Status DC Pharmacy Profile Note 0 ml @ 0 mls/hr UNSCH OTHER ; Start 03/28/17 at 15:45; Stop 03/29/17 at 11:58; Status DC Vancomycin HCl 1251 mg/Sodium Chloride 512.51 ml @ 250 mls/ hr Q12H IV ; Start 03/28/17 at 17:00; Status Cancel Sodium Chloride 250 ml @ 250 mls/hr BOLUS ONCE IV Last administered on 15:55; Start 03/28/17 at 16:00; Stop 03/28/17 at 16:59; Status DC Vancomycin HCl 1000 mg/Sodium Chloride 250 ml @ 250 mls/hr Q12H IV Last administered on 03/29/17 05:29; Start 03/28/17 at 18:00; Stop 03/29/17 at 11:58; Status DC Miscellaneous Information SPECIFIC LAB TO BE RYAN... ONCE ONCE .XX ; Start at 05:45; Stop 03/30/17 at 05:46; Status DC Cefazolin Sodium/ Dextrose 50 ml @ 100 mls/hr Q8H IV Last administered on 12:41; Start 03/28/17 at 20:00; Stop 04/01/17 at 13:24; Status DC Morphine Sulfate (Morphine Inj) 2 mg ONCE ONCE IV PUSH Last administered on 04:09; Start 03/29/17 at 04:15; Stop 03/29/17 at 04:16; Status DC Ciprofloxacin (Cipro) 750 mg Q12HR PO Last administered on 04/01/17 08:28; Start 03/29/17 at 21:00; Stop 04/01/17 at 13:21; Status DC Potassium Chloride (KCl) 40 meq ONCE ONCE PO Last administered on 03/30/17 08: 31; Start 03/30/17 at 08:15; Stop 03/30/17 at 08:19; Status DC Potassium Chloride (KCl) 40 meq ONCE ONCE PO Last administered on 03/30/17 11: 23; Start 03/30/17 at 11:00; Stop 03/30/17 at 11:01; Status DC Zolpidem Tartrate (Ambien) 10 mg HS PRN PO insomnia Last administered on 20:30; Start 03/30/17 at 21:00 Potassium Phosphate 30 mmol/ Sodium Chloride 260 ml @ 43.333 mls/ hr ONCE ONCE IV Last administered on 03/31/17 10:00; Start 03/31/17 at 10:00; Stop at 15:59; Status DC Potassium Phosphate 30 mmol/ Sodium Chloride 260 ml @ 43.333 mls/ hr ONCE ONCE IV Last administered on 03/31/17 19:29; Start 03/31/17 at 16:00; Stop at 21:59; Status DC Ceftriaxone Sodium 2000 mg/ Sodium Chloride 100 ml @ 200 mls/hr Q24H IV Last administered on 04/01/17 14:55; Start 04/01/17 at 15:00 Oxycodone/ Acetaminophen (Percocet 5-325 Mg) 1 tab Q4H PRN PO PAIN SCALE 3 TO 5 Last administered on 04/02/17 05:45; Start 04/01/17 at 14:15 Oxycodone/ Acetaminophen (Percocet 10-325 Mg) 1 tab Q4H PRN PO PAIN 6-10; Start 04/01/17 at 14:15 Urinary Catheter: Yes Assessment to: Continue Carreon insert reason: Obstruction/Retention Vascular Central Line Catheter: Yes Assessment to: Continue Side: Right Reason for Continuation For antibiotics A/P Problem List: (1) Pyelonephritis ICD Code: N12 - Tubulo-interstitial nephritis, not specified as acute or chronic Status: Acute (2) Hydronephrosis ICD Code: N13.30 - Unspecified hydronephrosis Status: Acute (3) Kidney stone ICD Code: N20.0 - Calculus of kidney Status: Acute Assessment and Plan [id number] with obstructed infected renal calculus and hydronephrosis went for cystoscopy and stent placement then complicated with acute septic shock secondary to likely bacteremia secondary to percutaneous nephrostomy tube placement. Patient transferred to ICU and abstract clerk was consulted yesterday, I discussed with Dr. Melo this morning he transferred patient back to hospitalist service she stabilized Septic Shock due to urine sepsis>> systolic blood pressure still 90s with increased heart rate above 100 Bacteremia mostly staph aureus, gram-positive cocci- STAPH AUREUS- DUVALL SENSITIVE Obstructing Ureteral calculus Urinary tract infection Urosepsis Positive staghorn calculus HYPOKALEMIA- REPLACE ORALLY Plan: -Continue monitoring-moved out of ICU - continue abx on per infectious disease - wean fio2 for spo2 > 90% -Iv fluid Incentive spirometry Echocardiogram per ID suggestion A.m. labs Discussed with patient and RN TOLERATING FULL DIET AMBIEN FOR SLEEP REPLACE POTASSIUM NEEDS PICC FOR ANTIBIOTICS- ROCEPHIN PERCOCET FOR PAIN SWITCH TO ORALS DC to SNF today Problem Qualifiers (1) Hydronephrosis: Qualified Codes: N13.2 - Hydronephrosis with renal and ureteral calculous obstruction Ganesh Augirre DO Apr 02, 2017 11:28
[2017-04-02] MEDS ORDERED: OXYC1TAB63 PO (11:33)
[2017-04-02] MEDS ORDERED: OXYC1TAB36 PO (11:33)
[2017-04-02] MEDS ORDERED: AMBI10TA PO (11:33)
[2017-04-02] MEDS ORDERED: CEFT1INJ2 IV (11:33)
--- NOTE | 2017-04-02 11:36 | HHI.DS ---
Discharge Summary Admission Date Mar 27, 2017 at 04:03 Discharge Date: Apr 02, 2017 Admitting Diagnosis pyelonephritis, hydronephrosis, renal stone (1) Pyelonephritis ICD Code: N12 - Tubulo-interstitial nephritis, not specified as acute or chronic Diagnosis: Principal Status: Acute (2) Hydronephrosis ICD Code: N13.30 - Unspecified hydronephrosis Status: Acute (3) Kidney stone ICD Code: N20.0 - Calculus of kidney Diagnosis: Principal Status: Acute (4) Staghorn renal calculus ICD Code: N20.0 - Calculus of kidney Diagnosis: Principal (5) Hydronephrosis, left ICD Code: N13.30 - Unspecified hydronephrosis Diagnosis: Principal Procedures Cystoscopy and left retrograde stent insertion Date of Surgery: Mar 27, 2017 Preoperative Diagnosis: (1) Staghorn renal calculus (2) Hydronephrosis, left Postoperative Diagnosis: (1) Hydronephrosis, left (2) Staghorn renal calculus Procedure: Cystoscopy, left retrograde pyelogram, placement of left moth exterminator ureteral stent and left nephrostogram Post Procedure Progress Note Pre Procedure Diagnosis: (1) Pyelonephritis Post Procedure Diagnosis: (1) Pyelonephritis Procedure Date: Mar 27, 2017 Supervising Radiologist: Morro Pinon Proceduralist/Assist: Stephy Luciano RT(R)(CV), Santiago Mandel RT(R), Giselle Alaniz RT(R) Anesthesia: Conscious Sedation Plan of Activity Patient to Unit: ROPU Patient Condition: Fair See PACS Report for procedural detail/treatment Drainage Procedure Procedure 1 Imaging Guidance: Fluoroscopy Side: Left Procedure Type: Nephrostomy Procedure: Evaluation (failed nephrostomy secondary to staghor, pyonephrosis with specimen sent to lab patient to [facility] for monitoring for sepsis) Brief History - From Admission 56 y/o female with a history hypothyroid, htn (not on any medications for 4 months), depression, anxiety, HLD and 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 She states the back pain is severe in her lower back and it radiates to her hips and she has associated diaphoresis and nausea. She denies any fevers, chills, dysuria, chest pain or sob. 9-3 Patient seen and examined Had some atypical chest pain last night with borderline troponins No change in EKG States she is congested today will get incentive spirometry continue on antibiotics per infectious disease Discussed with patient and RN's -4 advance diet from clears as tolerated AM LABS HAS INSOMNIA ADD AMBIEN MILD ABDOMINAL PAIN- MAY BE HUNGRY ADVANCE DIET HAD ECHO DW RN AND PT 9-5 TOLERATING A DIET CONTINUE ON IV ANTIBIOTICS NOT CLEARED BY ID OR UROLOGY YET FOR DC AM LABS -6 TO GET PICC LINE WILL NEED ROCEPHIN IV PER ID THEN PO LEVAQUIN AFTERWARD ADD PO PERCOCETS FOR PAIN CONTROL SLEEPING AND EATING BETTER HOPEFULLY HOME TOMORROW 9-7 patient to go to SNF today for IV antibiotics. Rocephin 1 g IV daily for 14 days then Levaquin afterwards Continue on monitoring her percutaneous nephrostomy tube Had midline place yesterday DC to SNF today [id number] filled out see paperwork CBC/BMP: 04/02/17 0636 04/02/17 0636 Significant Findings Laboratory Tests Test 03/31/17 07:05 03/31/17 12:50 04/01/17 05:00 04/02/17 06:36 White Blood Count 12.2 TH/MM3 (4.0-11.0) 12.3 TH/MM3 (4.0-11.0) Red Blood Count 3.25 MIL/MM3 (4.00-5.30) 3.30 MIL/MM3 (4.00-5.30) 3.04 MIL/MM3 (4.00-5.30) Hemoglobin 10.6 GM/DL (11.6-15.3) 10.8 GM/DL (11.6-15.3) 10.2 GM/DL (11.6-15.3) Hematocrit 31.0 % (35.0-46.0) 32.3 % (35.0-46.0) 29.6 % (35.0-46.0) Mean Platelet Volume 6.3 FL (7.0-11.0) 6.2 FL (7.0-11.0) 6.4 FL (7.0-11.0) Neutrophils (%) (Auto) 74.4 % (16.0-70.0) Neutrophils # (Auto) 9.1 TH/MM3 (1.8-7.7) 8.4 TH/MM3 (1.8-7.7) Monocytes # (Auto) 1.0 TH/MM3 (0-0.9) 1.0 TH/MM3 (0-0.9) Blood Urea Nitrogen 6 MG/DL (7-18) Creatinine 0.45 MG/DL (0.50-1.00) Random Glucose 116 MG/DL (74-106) 111 MG/DL (74-106) 118 MG/DL (74-106) Albumin 2.2 GM/DL (3.4-5.0) 2.3 GM/DL (3.4-5.0) 2.0 GM/DL (3.4-5.0) Calcium Level 8.4 MG/DL (8.5-10.1) 8.1 MG/DL (8.5-10.1) Phosphorus Level 2.2 MG/DL (2.5-4.9) 2.4 MG/DL (2.5-4.9) Potassium Level 3.3 MEQ/L (3.5-5.1) Urine Occult Blood MOD (NEG) Urine Leukocyte Esterase LARGE (NEG) Urine RBC 48 /hpf (0-3) Urine WBC 39 /hpf (0-5) Urine Bacteria RARE /hpf (NONE) Urine Mucus FEW /lpf (OCC) Monocytes (%) (Auto) 8.4 % (0.0-8.0) 8.3 % (0.0-8.0) Neutrophils # (Manual) 8.7 TH/MM3 (1.8-7.7) Myelocytes 3 % (0-0) 2 % (0-0) Sodium Level 135 MEQ/L (136-145) Eosinophils (%) (Auto) 4.7 % (0.0-4.0) Eosinophils % 5 % (0-4) Total Protein 6.2 GM/DL (6.4-8.2) Chloride Level 108 MEQ/L (98-107) Imaging Last Impressions Nephrostomy 03/27/17 3820 Signed Impressions: Service Date/Time: Monday, March 27, 2017 13:49 - CONCLUSION: Uncomplicated nephrostomy tube placement as above. The large staghorn calculi renal pelvis could not be passed Morro Pinon MD Abdomen/Pelvis CT 03/27/17 0208 Signed Impressions: Service Date/Time: Monday, March 27, 2017 03:00 - CONCLUSION: 1. There is a left staghorn calculus in the renal pelvis causing moderate to severe left hydronephrosis and inflammatory changes of the renal pelvis and proximal left ureter. 2. There are additional nonobstructing stones in the left lower pole collecting system measuring up to 14 mm. Joselo Castro MD Lumbar Spine CT 03/27/17 0000 Signed Impressions: Service Date/Time: Monday, March 27, 2017 03:00 - CONCLUSION: 1. Mild spinal canal stenosis at L3-L4 secondary to disc bulge and facet arthrosis. 2. Postsurgical changes at L4-S1, as above. Joselo Castro MD PE at Discharge GENERAL: Awake alert oriented talkative and cooperative SKIN: Warm and dry. HEAD: Atraumatic. Normocephalic. EYES: Pupils equal and round. No scleral icterus. No injection or drainage. ENT: No nasal bleeding or discharge. Mucous membranes pink and moist. Tongue is midline NECK: Trachea midline. No JVD. Supple CARDIOVASCULAR: Regular rate and rhythm. S1-S2 no S3 or S4 no heave or thrill or rub or gallop RESPIRATORY: No accessory muscle use. Clear to auscultation. Breath sounds equal bilaterally. GASTROINTESTINAL: Abdomen soft, MILDLY tender, nondistended. Hepatic and splenic margins not palpable. Carreon catheter in place MUSCULOSKELETAL: Extremities without clubbing, cyanosis, or edema. No obvious deformities. NEUROLOGICAL: Awake and alert. No obvious cranial nerve deficits. Motor grossly within normal limits. Five out of 5 muscle strength in the arms and legs. Normal speech. PSYCHIATRIC: Appropriate mood and affect; insight and judgment normal. 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 She states the back pain is severe in her lower back and it radiates to her hips and she has associated diaphoresis and nausea. She denies any fevers, chills, dysuria, chest pain or sob. 9-3 Patient seen and examined Had some atypical chest pain last night with borderline troponins No change in EKG States she is congested today will get incentive spirometry continue on antibiotics per infectious disease Discussed with patient and RN's - advance diet from clears as tolerated AM LABS HAS INSOMNIA ADD AMBIEN MILD ABDOMINAL PAIN- MAY BE HUNGRY ADVANCE DIET HAD ECHO DW RN AND PT 9-5 TOLERATING A DIET CONTINUE ON IV ANTIBIOTICS NOT CLEARED BY ID OR UROLOGY YET FOR DC AM LABS 9-6 TO GET PICC LINE WILL NEED ROCEPHIN IV PER ID THEN PO LEVAQUIN AFTERWARD ADD PO PERCOCETS FOR PAIN CONTROL SLEEPING AND EATING BETTER HOPEFULLY HOME TOMORROW 9-7 patient to go to SNF today for IV antibiotics. Rocephin 1 g IV daily for 14 days then Levaquin afterwards Continue on monitoring her percutaneous nephrostomy tube Had midline place yesterday DC to SNF today 3008 filled out see paperwork Pt Condition on Discharge: Good Discharge Disposition: Discharge to SNF Discharge Time: > 30 minutes Discharge Instructions DIET: Follow Instructions for: Heart Healthy Diet Speech Therapy-Diet Recommends: Regular Activities you can perform: Regular-No Restrictions Follow up Referrals: Infectious Disease - 2 Weeks PCP Follow-up with Quirino Garcia MD Urology - 2 Weeks with Shar Morales DO New Medications: Ceftriaxone Inj (Ceftriaxone Inj) 1 Gm/50 Ml Bagp 1 GM IV Q24H for Infection for 14 Days, #14 BAG 0 Refills Oxycodone-Acetaminophen (Oxycodone-Acetaminophen) 5-325 mg Tab 1 TAB PO Q4H PRN for PAIN SCALE 3 TO 5, #30 TAB Oxycodone-Acetaminophen (Oxycodone-Acetaminophen) 10-325 mg Tab 1 TAB PO Q4H PRN for PAIN 6-10, #30 TAB Zolpidem (Ambien) 10 Mg Tab 10 MG PO HS PRN for insomnia, #30 TAB Continued Medications: Bupropion HCl ER 12 HR (Wellbutrin SR 12 HR) 150 Mg Tab 150 MG PO Q12HR for Control Depression, TAB 0 Refills Fluoxetine (Prozac) 20 Mg Cap Unknown Dose PO DAILY, #30 CAP 0 Refills Levothyroxine (Levothyroxine) 125 Mcg Tab 125 MCG PO DAILY for Thyroid, #30 TAB 0 Refills Omeprazole (Omeprazole) 20 Mg Tab 20 MG PO DAILY for 14 Days, TAB 0 Refills Pravastatin (Pravastatin) 20 Mg Tab Unknown Dose PO DAILY for Cholesterol Management, #30 TAB 0 Refills Discontinued Medications: Naproxen (Naproxen) 250 Mg Tab 250 MG PO BID for 14 Days, #60 TAB 0 Refills Oxycodone-Acetaminophen (Percocet) 5-325 mg Tab 1-2 TAB PO Q6H PRN for PAIN, #15 TAB 0 Refills Ganesh Aguirre DO Apr 02, 2017 11:36
[2017-04-02] MEDS ORDERED: COLA100C PO (11:55)
[2017-04-02] MEDS ORDERED: SENN1TAB PO (11:55)
[2017-04-02] MEDS ORDERED: DOCUSATE SODIUM 50 MG/SENNA 8.6 MG TAB PO SCH (12:00)
--- NOTE | 2017-04-02 13:01 | HHI.FF ---
Infusion Therapy Location of Infusion Therapy: [facility] Infusion Therapy Order Patient Information Patient Weight 88.5 kg Diagnosis: Diagnosis MSSA bacteremia, UTI Coded Allergies: amoxicillin (Verified Allergy, Intermediate, hives, 03/27/17) Administer Medication Ceftriaxone 2 grams IV q 24 hours Stop Treatment: Apr 16, 2017 Additional Information Additional Medications Levaquin 750 mg daily to start 04/17 x 28 days Venous access: Other (Midline) Additional Instructions [x] Peripheral flush and dressing changes per protocol [x] Implanted port and central online merchandising specialist: * Implanted port: 10 ml Normal Saline followed by 5 ml Heparin 100 units/ml Heparin flush after each use and monthly to maintain. [] May leave port accessed during therapy. [] May leave peripheral site accessed for duration of therapy. [x] If patient has SOB or respiratory distress, check oxygen saturation. If less than 90% or clinical signs of respiratory distress, administer oxygen at 2 L/min. via nasal cannula and notify physician. [x] Anaphylaxis/Reaction orders: * Stop infusion. * Keep IV line open with saline flush. * Notify physician. * Monitor vital signs every 15 minutes until symptoms resolve. * Check Oxygen saturation; Oxygen at 2 L/min. via nasal cannula if less than 90% or clinical signs of respiratory distress. * Administer diphenhydramine (Benadryl) 25 mg IV STAT, (unless patient has received as pre-med). May repeat once, if necessary. * Solu-Cortef 250 mg IVP over 30-60 seconds, use 100 mg vials for each dissolution. * Epinephrine (1mg/1 ml) 0.3 mg subcutaneously or IVP now with any signs of respiratory distress. * Check with physician for new additional pre-med orders if patient is re- challenged or re-treated. [x] May remove PICC line when treatment complete, after confirming with Physician. [x] If the patient is admitted to the hospital, the ED, or transferred via [facility] , complete transfer form including medication reconciliation order sheet. Laboratory Tests Weekly Labs: CBC w/diff, Creatinine, LFT's (Hepatic function test) (Every Thursday - copy to me) Inna Healy MD Apr 02, 2017 13:01
[2017-04-02] MEDS ORDERED: LEVA750T9 PO (13:02)
[2017-04-02] MEDS: cefTRIAXone INJ 2,000 MG in SODIUM CHLORIDE 0.9% INJ 100 ML IV SCH (15:16)
[2017-04-02] MEDS: DOCUSATE SODIUM 100 MG CAP PO SCH ×2 (15:16→16:28)
[2017-04-22] MEDS ORDERED: ROSU40 PO (13:02)
[2017-05-13] MEDS ORDERED: ROSU20 PO (08:16)
== END 2017-04-02 21:32 | disposition home or self-care (01) | DRG 871 ==
LOC: NEPD 21:43 → NEDA 03-27 04:03 → NEPFCDU 03-27 07:03 → N03B 03-27 16:01 → N03A 03-27 16:17 → N07A 03-28 19:48
PROVIDERS: ADMIT Hospitalist; ATTEND Hospitalist
PROC: BT121ZZ Fluoroscopy of Left Kidney using Low Osmolar Contrast (ICD-10-PCS; 2017-03-27)
PROC: BT1F1ZZ Fluoroscopy of Left Kidney, Ureter and Bladder using Low Osmolar Contrast (ICD-10-PCS; 2017-03-27)
PROC: 0T778DZ Dilation of Left Ureter with Intraluminal Device, Via Natural or Artificial Opening Endoscopic (ICD-10-PCS; principal; 2017-03-27 17:48)
DX: A41.01 Sepsis due to Methicillin susceptible Staphylococcus aureus (principal); R65.21 Severe sepsis with septic shock; N13.6 Pyonephrosis; I10 Essential (primary) hypertension; E03.9 Hypothyroidism, unspecified; E78.5 Hyperlipidemia, unspecified; E87.6 Hypokalemia; G47.00 Insomnia, unspecified; K59.00 Constipation, unspecified; M48.06 Spinal stenosis, lumbar region; Z72.0 Tobacco use; Z87.442 Personal history of urinary calculi; M54.5 Low back pain; G89.29 Other chronic pain
CPT/HCPCS: 36569; 50432; 72131; 74177; 74420; 76937; 80048; 80053; 81001; 82550; 82552; 83036; 83605; 83690; 83735; 84100; 84439; 84443; 84484; 85007; 85025; 85027; 85610; 85730; 86403; 87015; 87040; 87070; 87086; 87102; 87116; 87147; 87185; 87186; 87205; 87206; 93005; 93306; 94150; 96361; 96372; 96374; 96375; 99152; 99153; C1729; C1769; C1887; C1894; J0131; J0690; J0696; J0744; J1170; J1580; J1885; J1956; J2175; J2250; J2270; J2370; J2405; J2710; J3010; J3370; J7030; J7050; J7120; Q9967

== ENCOUNTER 2017-05-04 07:03 | Day surgery (SDC) | payer OTHER ==
[~2017-05-04] VITALS: Ht 154.9 cm; Wt 76.4 kg
[~2017-05-04 07:03] MED LIST changes: +AMBI10TA PO; +CEFT1INJ2 IV; +COLA100C PO; -IOHEXOL 350 MG/ML 10 ML VIAL (for RAD DIAG) IVCONTRAST ONE; +LEVA750T9 PO; -NAPR250T PO; +OXYC1TAB36 PO; +OXYC1TAB63 PO; -PERC5TAB12 PO; +ROSU40 PO; +SENN1TAB PO
[2017-05-04] MEDS ORDERED: IOHEXOL 350 MG/ML 50 ML BTL (for RAD DIAG) OTHER ONE (07:04)
[2017-05-04 07:18] VITALS: BP 121/88; PULSE 87; RESP 20; TEMP 98.2; O2SAT 97
[2017-05-04] MEDS ORDERED: SODIUM CHLORIDE 0.9% 1000 ML IV SCH (07:45)
[2017-05-04] MEDS ORDERED: LEVOFLOXACIN 500 MG PREMIX 100 ML - nephrostomy tube insertion or exchange IV SCH (07:45)
[2017-05-04] MEDS ORDERED: MIDAZOLAM HCL 2 MG/2 ML VIAL ONE ×2 (09:00→09:41)
[2017-05-04 11:00] VITALS: BP 126/67; PULSE 61; RESP 16; TEMP 97.9; O2SAT 94
--- NOTE | 2017-05-04 11:03 | PD.RAD ---
Post Procedure Progress Note Pre Procedure Diagnosis: (1) Staghorn renal calculus (2) Hydronephrosis, left Post Procedure Diagnosis: (1) Staghorn renal calculus (2) Hydronephrosis, left Procedure Date: May 04, 2017 Supervising Radiologist: Sundar Farr Estimated blood loss: 3cc Anesthesia: Local, Conscious Sedation Plan of Activity Patient to Unit: ROPU Patient Condition: Good Additional Comments: Multiple attempts were made to advance a wire from the collecting system across the staghorn stone. this was unsuccessful. Pt. will need ESWL and we can reattempt to pass a catheter across the stone. Full dictated report to follow See PACS Report for procedural detail/treatment Sundar Farr MD May 04, 2017 11:03
[2017-05-04 11:15] VITALS: BP 93/62; PULSE 62; RESP 16; O2SAT 94
[2017-05-04 11:30] VITALS: BP 111/68; PULSE 62; RESP 16; O2SAT 95
[2017-05-04 12:00] VITALS: BP 116/76; PULSE 60; RESP 18; O2SAT 97
[2017-05-04 12:30] VITALS: BP 130/77; PULSE 61; RESP 16; O2SAT 97
--- NOTE | 2017-05-04 13:30 | RADRPT ---
EXAM DATE/TIME: 05/04/2017 08:12 [facility] COMPARISON: ANTEGRADE PYELOGRAM, LEFT, May 04, 2017, 0:00. INDICATIONS : Patient with anais staghorn stone left kidney. MEDICAL HISTORY : 1. HTN 2. chronic back pain 3. thyroid disease 4. kidney stones SURGICAL HISTORY : 1. Lumbar back surgery 2. lt nephrostomy tube 3. C section ENCOUNTER: Subsequent ACUITY: 1 month PAIN SCORE: 3/10 LOCATION: Left leg FLUORO TIME: 43.4 minutes IMAGE SERIES: 2 SEDATION TIME: 75 minutes CONTRAST: 40 cc Omnipaque (iohexol) 350 MEDICATION(S): 1.) 4 mg midazolam (Versed) IV 2.) 200 mcg fentanyl (Sublimaze) IV DEVICE(S): 1.) 8 Ukrainian nephrostomy catheter PROCEDURE : 1. Antegrade pyelogram. 2. Nephrostomy tube exchange. 3. Conscious sedation with continuous EKG and oximetry monitoring. Clinical history: The patient has a known large staghorn calculus of the left kidney. The calculus involves the mid and lower pole collecting system and fills the entire renal pelvis. Previous attempt had been made to cr oss a catheter from a posterior collecting system down the ureter into the bladder this was unsuccess ful. The patient was brought back for reattempt at placement of a catheter to the bladder to facilita te percutaneous nephrolithotomy. The previous examination was reviewed prior to the procedure. The risks, benefits and alternatives to the procedure were explained and verbal and written consent w as obtained. The site was prepped in sterile fashion. Full sterile technique was used, including ca p, mask, sterile gloves and gown and a large sterile sheet. Hand hygiene and 2% chlorhexidine and/or betadine/alcohol prep was utilized per protocol for cutaneous antisepsis. The skin and subcutaneous tissues were infiltrated with local anesthetic solution. With fluoroscopic guidance antegrade pyelo gram was performed. The antegrade pyelogram confirmed a large staghorn calculus filling the collecting system of the richi lopez. The existing nephrostomy tube was removed. Multiple different catheter and wire combinations were used in attempt to advance a wire from the lower pole collecting system down the ureter. The stone w as simply too impacted in the collecting system to facilitate passage of a wire adjacent to the stone . A suitable site over the midpole collecting system was selected. The skin was anesthetized with 10 cc 1% lidocaine. A Pablo blunt needle was advanced through the skin down into the collecting system. Again, multiple attempts were made to pass a wire between the calculus and down the ureter. These wer e unsuccessful in spite of multiple attempts. A new 8 Ukrainian nephrostomy tube was advanced over the wire through the existing tract and into the po sterior lower pole collecting system without difficulty. The catheter was verified in good position. Conscious sedation was performed with the prescribed dosages and duration as above in the presence of an independent trained radiology nurse to assist in the monitoring of the patient. EKG and oximetry remained stable throughout the procedure. The patient tolerated the procedure well and there were n o complications. The patient was sent to post anesthesia recovery in stable condition. CONCLUSION: 1. Multiple attempts were made to advance a wire from the posterior collecting system down the ureter . These were unsuccessful. 2. The case was discussed with Dr. Morales. The patient will undergo lithotripsy in an attempt to frag ment the stone. Once this has been performed passage of a wire and catheter to the bladder will be ag ain attempted. Sundar Farr MD on May 04, 2017 at 13:24 Board Certified Radiologist. This report was verified electronically.
[2017-05-13] MEDS ORDERED: ROSU20 PO (08:16)
== END 2017-05-04 14:17 | disposition home or self-care (01) ==
LOC: HROP 07:03 → HRIP 07:07 → HROP 14:17
PROVIDERS: ATTEND Urology
DX: Z46.89 Encounter for fitting and adjustment of other specified devices (principal); N20.0 Calculus of kidney; N13.30 Unspecified hydronephrosis
CPT/HCPCS: 50435; 99152; 99153; C1729; C1769; C1887; C1894; J2250; J3010; J7030; Q9967

== ENCOUNTER → 2017-05-13 | Day surgery (SDC) | payer OTHER ==
[~2017-05-13] VITALS: Ht 157.5 cm; Wt 76.2 kg
[~2017-05-13] MED LIST changes: -AMBI10TA PO; -CEFT1INJ2 IV; +CHLORHEXIDINE GLUCONATE 2 % 1 PACK (2 CLOTHS) TOPICAL PRN; -COLA100C PO; +DEXAMETHASONE SOD PHOS 4 MG/ML VIAL IV ONE; +DO NOT ADM ANY ANTICOAGULANT DRUGS PRN; +GENTAMICIN/SOD CHL 80 MG/100 ML IV SCH; +GLYCOPYRROLATE 1 MG/5 ML SYRINGE IV PUSH ONE; +INSULIN HUMAN REGULAR 1,000 UNITS/10 ML VIAL SQ PRN; +LACTATED RINGER'S 1000 ML IV PRN; +LIDOCAINE HCL 1% PF 5 ML AMPULE OTHER ONE; +METOPROLOL TARTRATE 25 MG TAB PO PRN; +MIDAZOLAM HCL 2 MG/2 ML VIAL IV ONE; +MORPHINE SULFATE 2 MG/ML INJ IV PRN; +NEOSTIGMINE 3 MG/3 ML SYR IV ONE; +ONDANSETRON HCL 4 MG/2 ML VIAL IV PUSH ONE; +ONDANSETRON HCL 4 MG/2 ML VIAL IV PUSH PRN; -OXYC1TAB63 PO; +PHENYLEPH/NS 1000 MCG/10 ML SYR IV ONE; +POVIDONE IODINE 5% (ANTISEPSIS KIT) 4 APPLICATIONS EACH NARE PRN; +PROPOFOL 200 MG/20 ML AMP IV ONE; +ROCURONIUM INJ 50 MG/5 ML SYRINGE IV PUSH ONE; +ROSU20 PO; -ROSU40 PO; -SENN1TAB PO; +SODIUM CHLORID 0.9% 500 ML IV PRN; +VANCOMYCIN HCL 1000 MG ON-CALL/NS 250 ML IV SCH; +ePHEDrine/NS 25 MG/5 ML SYR IV ONE; +oxyCODONE/ACETAMINOPHEN 7.5 MG/325 MG TAB PO PRN
--- NOTE | 2017-05-13 08:20 | RADRPT ---
EXAM DATE/TIME: 05/13/2017 07:52 [facility] COMPARISON: CT ABDOMEN & PELVIS W CONTRAST, March 27, 2017, 3:00. INDICATIONS : Pre op for left kidney lithotripsy. MEDICAL HISTORY : Kidney stones. SURGICAL HISTORY : section. Left nephrostomy ENCOUNTER: Initial ACUITY: 1 day PAIN SCORE: 4/10 LOCATION: Left Abdomen. FINDINGS: Single supine frontal view of the abdomen demonstrates a left ureteral stent in place as well as a pe rcutaneous nephrostomy tube overlying the left abdomen. There is a partial staghorn calculus filling the left mid collecting system and extrarenal pelvis measuring approximately 4.5 x 3.2 cm. There is a single stone in the left mid collecting system measuring 7 x 5 mm and there is a single stone versus stone fragments overlying the left lower pole kidney measuring 13 x 8 mm. No stones are visualized a long the course of the left ureter. No right renal stones are identified. There is a nonobstructive bowel gas pattern. No organomegaly is appreciated. There has been prior inf erior lumbar laminectomy and posterior spinal fixation with hardware present. CONCLUSION: 1. Partial staghorn calculus in the left mid collecting system and extrarenal pelvis measuring approx imately 4.5 x 3.2 cm. 2. There is a single stone overlying the left mid kidney measuring 7 mm and a single stone versus ove rlying stone fragments overlying the left lower pole measuring 1.3 x 0.8 cm. Joselo Castro MD on May 13, 2017 at 8:15 Board Certified Radiologist. This report was verified electronically.
[2017-05-13 08:32] LABS: AUTOMATED NEUTROPHIL # 3.6 TH/MM3 (1.8-7.7); BASOPHIL # 0.1 TH/MM3 (0-0.2); BASOPHIL % 0.9 % (0.0-2.0); EOSINOPHIL # 0.3 TH/MM3 (0-0.4); EOSINOPHIL % 4.7 % (0.0-4.0); HEMATOCRIT 36.1 % (35.0-46.0); HEMO FLAGS DIFF FINAL; LYMPH % 32.2 % (9.0-44.0); LYMPHOCYTE # 2.1 TH/MM3 (1.0-4.8); MEAN CELL VOLUME 94.6 FL (80.0-100.0); MEAN CORPUSCULAR HGB CONC 33.8 % (32.0-36.0); NEUT % 56.2 % (16.0-70.0); PLATELET COUNT 328 TH/MM3 (150-450); RED BLOOD COUNT 3.82 MIL/MM3 (4.00-5.30); RED CELL DISTRIBUTION WIDTH 14.5 % (11.6-17.2); WHITE BLOOD COUNT 6.4 TH/MM3 (4.0-11.0)
[2017-05-13 08:48] LABS: POTASSIUM 4.1 MEQ/L (3.5-5.1)
--- NOTE | 2017-05-13 10:58 | PD.OP ---
Operative Report Date of Surgery: May 13, 2017 Preoperative Diagnosis: Left staghorn calculus Postoperative Diagnosis: Same Procedure: Left extracorporeal shockwave lithotripsy Anesthesia: Gen. LMA Surgeon: Shar Morales [employer] Lab Technician(s): none Resident Surgeon: None Operation and Findings: 56-year-old female with a large left staghorn calculus. Patient had a failed attempt at a left percutaneous nephrostomy tube. It was recommended for the patient to undergo extracorporeal shockwave lithotripsy to attempt to break the lateral aspect of the stone allowing interventional radiology to then proceed with left percutaneous nephrostomy tube in the future. Patient will require a left percutaneous nephrolithotomy in the future to remove the residual stone burden. Risk and benefits were discussed preoperatively including bleeding infection and non-breakage of the stone. She was willing to proceed. Patient was brought to the operating room and identified by myself as Sakshi Pruett. She was placed on the operating table in the supine position and received preprocedure antibiotics. Under fluoroscopic and ultrasonic imaging guidance the stone was visualized. ESWL therapy commenced. Patient received a total 2500 shocks with good fragmentation noted of the lateral aspect of the staghorn calculus. Hopefully this will provide a suitable tract and placed a left percutaneous nephrostomy tube to proceed with left percutaneous nephrolithotomy in the future. She'll follow-up in the office in 2 weeks and obtain a KUB x-ray prior. She tolerated today's procedure well and was transferred to her room in stable condition. Shar Morales DO May 13, 2017 10:58
[2017-05-13 12:24] VITALS: BP 103/71; PULSE 97; RESP 16; TEMP 97.8; O2SAT 98
== END | disposition home or self-care (01) ==
LOC: HSDC 07:35
PROVIDERS: ATTEND Urology
DX: N20.0 Calculus of kidney (principal); N13.30 Unspecified hydronephrosis
CPT/HCPCS: 00873; 50590; 74000; 80048; 85025; J1100; J2250; J2370; J2405; J2710; J3010; J7120

== ENCOUNTER 2017-05-15 09:42 | Emergency (ER) | payer OTHER ==
[~2017-05-15] VITALS: Ht 157.5 cm; Wt 75.0 kg
[~2017-05-15 09:42] MED LIST changes: -CHLORHEXIDINE GLUCONATE 2 % 1 PACK (2 CLOTHS) TOPICAL PRN; -DEXAMETHASONE SOD PHOS 4 MG/ML VIAL IV ONE; -DO NOT ADM ANY ANTICOAGULANT DRUGS PRN; -GENTAMICIN/SOD CHL 80 MG/100 ML IV SCH; -GLYCOPYRROLATE 1 MG/5 ML SYRINGE IV PUSH ONE; -INSULIN HUMAN REGULAR 1,000 UNITS/10 ML VIAL SQ PRN; -LACTATED RINGER'S 1000 ML IV PRN; -LIDOCAINE HCL 1% PF 5 ML AMPULE OTHER ONE; -METOPROLOL TARTRATE 25 MG TAB PO PRN; -MIDAZOLAM HCL 2 MG/2 ML VIAL IV ONE; -MORPHINE SULFATE 2 MG/ML INJ IV PRN; -NEOSTIGMINE 3 MG/3 ML SYR IV ONE; -ONDANSETRON HCL 4 MG/2 ML VIAL IV PUSH ONE; -ONDANSETRON HCL 4 MG/2 ML VIAL IV PUSH PRN; -PHENYLEPH/NS 1000 MCG/10 ML SYR IV ONE; -POVIDONE IODINE 5% (ANTISEPSIS KIT) 4 APPLICATIONS EACH NARE PRN; -PRAV20TA2 PO; -PROPOFOL 200 MG/20 ML AMP IV ONE; -ROCURONIUM INJ 50 MG/5 ML SYRINGE IV PUSH ONE; -SODIUM CHLORID 0.9% 500 ML IV PRN; -VANCOMYCIN HCL 1000 MG ON-CALL/NS 250 ML IV SCH; -ePHEDrine/NS 25 MG/5 ML SYR IV ONE; -oxyCODONE/ACETAMINOPHEN 7.5 MG/325 MG TAB PO PRN
[2017-05-15 09:43] VITALS: BP 126/82; PULSE 93; RESP 15; TEMP 98.6; O2SAT 99
--- NOTE | 2017-05-15 10:40 | PD ---
HPI Chief Complaint: Complaint Time Seen by Provider: 10:28 Travel History International Travel<30 days: No Contact w/Intl Traveler<30days: No Traveled to known affect area: No History of Present Illness HPI The patient was seen and examined in the presence of the nurse. This patient is complaining that her left nephrostomy tube is not draining anything. She had lithotripsy for left-sided staghorn calculus 2 days ago. She says about 50 cc of bloody material was drained from the bag shortly after but since then hasn 't drained anything. She's been urinating like usual. She is not having any significant change and flank pain which is more or less chronic. Denies fever or injury. Symptoms severity is moderate. No alleviating factors. Symptoms exacerbated by lithotripsy 2 days ago. PFSH Past Medical History Autoimmune Disease: No Anxiety: Yes Depression: Yes Cancer: No Cardiovascular Problems: No High Cholesterol: Yes Diabetes: No Diminished Hearing: No Endocrine: Yes (thyroid) Gastrointestinal Disorders: Yes (IBS, POLYPS REMOVED) Genitourinary: Yes (kidney stones) Hepatitis: No Hiatal Hernia: No Immune Disorder: No Kidney Stones: Yes (with this admission) Medical other: No Musculoskeletal: Yes (back injury, ) Neurologic: Yes (depression, nerve problems ) Psychiatric: Yes (depression) Reproductive: No Respiratory: No Immunizations Current: No Sleep Apnea: Yes Thyroid Disease: Yes Influenza Vaccination: No Past Surgical History Abdominal Surgery: No AICD: No Cardiac Surgery: No Section: Yes (X 3) Ear Surgery: No Endocrine Surgery: No Eye Surgery: No Genitourinary Surgery: No Gynecologic Surgery: Yes (C section X 3) Joint Replacement: No Neurologic Surgery: Yes (spinal surgery) Oral Surgery: No Pacemaker: No Thoracic Surgery: No Other Surgery: Yes (3 C-sections and back surgery) Social History Alcohol Use: No Tobacco Use: No Substance Use: No Allergies-Medications (Allergen,Severity, Reaction): Coded Allergies: ampicillin (Verified Allergy, Severe, Nausea/Vomiting, 05/13/17) calcium carbonate (Verified Allergy, Severe, Nausea/Vomiting, 05/13/17) ciprofloxacin (Verified Allergy, Severe, Hives, 05/13/17) gabapentin (Verified Allergy, Severe, Nausea/Vomiting, 05/13/17) latex (Verified Allergy, Severe, Itching, 05/13/17) couse pimple in the skin with pus amoxicillin (Verified Allergy, Intermediate, hives, 05/13/17) Reported Meds & Prescriptions Reported Meds & Active Scripts Active Levaquin (Levofloxacin) 750 Mg Tablet 750 Mg PO DAILY 28 Days Oxycodone-Acetaminophen 10-325 mg Tab 1 Tab PO Q4H PRN Omeprazole 20 Mg Tab 20 Mg PO DAILY 14 Days Reported Crestor (Rosuvastatin Calcium) 20 Mg Tab 20 Mg PO DAILY Prozac (Fluoxetine HCl) 20 Mg Cap Unknown Dose PO DAILY Levothyroxine (Levothyroxine Sodium) 125 Mcg Tab 125 Mcg PO DAILY Wellbutrin SR 12 HR (Bupropion HCl) 150 Mg Tab 150 Mg PO Q12HR Review of Systems General / Constitutional: No: Fever Eyes: No: Visual changes HENT: No: Headaches Cardiovascular: No: Chest Pain or Discomfort Respiratory: No: Shortness of Breath Gastrointestinal: No: Abdominal Pain Genitourinary: Positive: Decreased Urinary Output, No: Dysuria Musculoskeletal: No: Pain Skin: No Rash Neurologic: No: Weakness Psychiatric: No: Depression Endocrine: No: Polydipsia Hematologic/Lymphatic: No: Easy Bruising Physical Exam Narrative GENERAL: Well-nourished, well-developed patient in no apparent distress. SKIN: Focused skin assessment reveals no rash and nodules. Skin is Warm and dry. HEAD: Atraumatic. Normocephalic. EYES: Pupils equal and round. No scleral icterus. No injection or drainage. ENT: No nasal bleeding or discharge. Mucous membranes pink and moist. NECK: Trachea midline. No JVD. CARDIOVASCULAR: Regular rate and rhythm. No murmur appreciated. RESPIRATORY: No accessory muscle use. Clear to auscultation. Breath sounds equal bilaterally. GASTROINTESTINAL: Abdomen soft, non-tender, nondistended. Hepatic and splenic margins not palpable. MUSCULOSKELETAL: No obvious deformities. No clubbing. No cyanosis. No edema. Has left-sided nephrostomy tube and the site shows no sign of infection NEUROLOGICAL: Awake and alert. No obvious cranial nerve deficits. Motor grossly within normal limits. Normal speech. PSYCHIATRIC: Appropriate mood and affect; insight and judgment normal. Data Data Last Documented VS Vital Signs Date Time Temp Pulse Resp B/P (MAP) Pulse Ox O2 Delivery O2 Flow Rate FiO2 05/15/17 10:44 62 16 123/61 (81) 96 Room Air 05/15/17 09:43 98.6 Orders Orders Iv Access Insert/Monitor (05/15/17 10:36) Complete Blood Count With Diff (05/15/17 10:36) Basic Metabolic Panel (Bmp) (05/15/17 10:36) Labs Laboratory Tests Test 05/15/17 10:45 White Blood Count 9.9 TH/MM3 Red Blood Count 3.76 MIL/MM3 Hemoglobin 12.0 GM/DL Hematocrit 35.9 % Mean Corpuscular Volume 95.5 FL Mean Corpuscular Hemoglobin 31.8 PG Mean Corpuscular Hemoglobin Concent 33.3 % Red Cell Distribution Width 14.7 % Platelet Count 336 TH/MM3 Mean Platelet Volume 6.9 FL Neutrophils (%) (Auto) 45.6 % Lymphocytes (%) (Auto) 44.0 % Monocytes (%) (Auto) 8.0 % Eosinophils (%) (Auto) 1.5 % Basophils (%) (Auto) 0.9 % Neutrophils # (Auto) 4.5 TH/MM3 Lymphocytes # (Auto) 4.4 TH/MM3 Monocytes # (Auto) 0.8 TH/MM3 Eosinophils # (Auto) 0.1 TH/MM3 Basophils # (Auto) 0.1 TH/MM3 CBC Comment DIFF FINAL Differential Comment Blood Urea Nitrogen 17 MG/DL Creatinine 0.84 MG/DL Random Glucose 95 MG/DL Calcium Level 8.9 MG/DL Sodium Level 141 MEQ/L Potassium Level 3.7 MEQ/L Chloride Level 108 MEQ/L Carbon Dioxide Level 24.8 MEQ/L Anion Gap 8 MEQ/L Estimat Glomerular Filtration Rate 70 ML/MIN MDM Medical Decision Making Medical Screen Exam Complete: Yes Emergency Medical Condition: Yes Medical Record Reviewed: Yes Differential Diagnosis Clogging nephrostomy tube, renal calculus, renal failure Narrative Course I have reviewed the patient's electronic medical record. Reviewed her urologic consultation from earlier this month. Reviewed her lab studies from 2 days ago which had a creatinine of 0.8 IV placed CBC is normal Metabolic profile is normal Placed a call to her urologist Dr. Morales to discuss. I reviewed in detail with Dr. Morales. The nephrostomy tube is known to be not positioned in the kidney due to obstructing staghorn calculus and that is why the lithotripsy was done. So he would not expect it to be draining anything. He recommends that she follow up with him at the next appointment as scheduled. Diagnosis Primary Impression: Staghorn renal calculus Additional Impression: Decreased urine output Additional Instructions: Follow-up with Dr. Morales as scheduled Med/Other Pt SpecificInfo: Other Disposition: 01 DISCHARGE HOME Condition: Stable Herber Daniel MD May 15, 2017 10:40
[2017-05-15 10:44] VITALS: BP 123/61; PULSE 62; RESP 16; O2SAT 96
[2017-05-15 11:00] LABS: AUTOMATED NEUTROPHIL # 4.5 TH/MM3 (1.8-7.7); BASOPHIL # 0.1 TH/MM3 (0-0.2); BASOPHIL % 0.9 % (0.0-2.0); EOSINOPHIL # 0.1 TH/MM3 (0-0.4); EOSINOPHIL % 1.5 % (0.0-4.0); HEMATOCRIT 35.9 % (35.0-46.0); HEMO FLAGS DIFF FINAL; LYMPHOCYTE # 4.4 TH/MM3 (1.0-4.8); MEAN CELL VOLUME 95.5 FL (80.0-100.0); MEAN CORPUSCULAR HEMOGLOBIN 31.8 PG (27.0-34.0); MEAN CORPUSCULAR HGB CONC 33.3 % (32.0-36.0); NEUT % 45.6 % (16.0-70.0); PLATELET COUNT 336 TH/MM3 (150-450); RED BLOOD COUNT 3.76 MIL/MM3 (4.00-5.30); RED CELL DISTRIBUTION WIDTH 14.7 % (11.6-17.2); WHITE BLOOD COUNT 9.9 TH/MM3 (4.0-11.0)
[2017-05-15 11:16] LABS: BICARBONATE 24.8 MEQ/L (21.0-32.0); POTASSIUM 3.7 MEQ/L (3.5-5.1)
[2017-05-15 12:47] VITALS: BP 96/56
== END 2017-05-15 12:55 | disposition home or self-care (01) ==
LOC: NEPE 09:42
DX: N20.0 Calculus of kidney (principal)
CPT/HCPCS: 80048; 85025; 99283

== ENCOUNTER 2017-06-29 07:20 | Day surgery (SDC) | payer OTHER ==
[~2017-06-29] VITALS: Ht 154.9 cm; Wt 77.3 kg
[~2017-06-29 07:20] MED LIST changes: -LEVA750T9 PO; -OMEP20TA PO; +PERC10TA27 PO
[2017-06-29] MEDS ORDERED: IOHEXOL 350 MG/ML 50 ML BTL (for RAD DIAG) OTHER ONE (07:21)
[2017-06-29 07:38] VITALS: BP 103/73; PULSE 93; RESP 20; TEMP 98.5; O2SAT 98
[2017-06-29] MEDS ORDERED: GENTAMICIN INJ 120 MG in SODIUM CHLORIDE 0.9% INJ 100 ML IV SCH (08:00)
[2017-06-29] MEDS ORDERED: SODIUM CHLORIDE 0.9% 1000 ML IV SCH (08:00)
[2017-06-29 08:17] LABS: AUTOMATED NEUTROPHIL # 3.3 TH/MM3 (1.8-7.7); BASOPHIL # 0.1 TH/MM3 (0-0.2); EOSINOPHIL # 0.2 TH/MM3 (0-0.4); EOSINOPHIL % 2.7 % (0.0-4.0); HEMO FLAGS DIFF FINAL; LYMPH % 32.5 % (9.0-44.0); LYMPHOCYTE # 1.9 TH/MM3 (1.0-4.8); MEAN CELL VOLUME 93.2 FL (80.0-100.0); MEAN CORPUSCULAR HGB CONC 34.3 % (32.0-36.0); MONO % 8.5 % (0.0-8.0); NEUT % 55.3 % (16.0-70.0); PLATELET COUNT 400 TH/MM3 (150-450); RED BLOOD COUNT 3.97 MIL/MM3 (4.00-5.30); RED CELL DISTRIBUTION WIDTH 14.4 % (11.6-17.2); WHITE BLOOD COUNT 5.9 TH/MM3 (4.0-11.0)
[2017-06-29 08:27] LABS: APTT (PATIENT) 30.1 SEC (24.3-30.1); PROTHROMBIN TIME - PATIENT 10.1 SEC (9.8-11.6)
[2017-06-29 08:32] LABS: BICARBONATE 25.4 MEQ/L (21.0-32.0); POTASSIUM 3.6 MEQ/L (3.5-5.1)
[2017-06-29] MEDS ORDERED: MIDAZOLAM HCL 2 MG/2 ML VIAL ONE ×2 (08:55)
--- NOTE | 2017-06-29 09:52 | PD.RAD ---
Post Procedure Progress Note Pre Procedure Diagnosis: (1) Staghorn renal calculus (2) Hydronephrosis, left Post Procedure Diagnosis: (1) Staghorn renal calculus (2) Hydronephrosis, left Procedure Date: Jun 29, 2017 Supervising Radiologist: Juwan Parada Proceduralist/Assist: Chris Mejia, RT(R), Santiago Mandel RT(R) Anesthesia: Conscious Sedation Plan of Activity Patient to Unit: [facility] Patient Condition: Good See PACS Report for procedural detail/treatment Juwan Parada MD Jun 29, 2017 09:52
[2017-06-29 10:05] VITALS: BP_SYST 100; BP_SYST 102; BP_DIAS 67; BP_DIAS 68; PULSE 59; PULSE 71; RESP 20; TEMP 97.9; O2SAT 96; O2SAT 98
[2017-06-29 10:20] VITALS: BP 102/68; PULSE 59; RESP 20; O2SAT 96
[2017-06-29 10:50] VITALS: BP 145/70; PULSE 68; RESP 20; O2SAT 97
[2017-06-29] MEDS ORDERED: oxyCODONE/ACETAMINOPHEN 5 MG/325 MG TAB PO ONE (11:15)
[2017-06-29 11:25] VITALS: BP 115/83; PULSE 74; RESP 20; O2SAT 94
--- NOTE | 2017-06-29 11:49 | RADRPT ---
EXAM DATE/TIME: 06/29/2017 08:48 [facility] COMPARISON: No previous studies available for comparison. INDICATIONS : History of staghorn left renal calculus with attempted prior nephrostomy catheter placement. The cath eter could not be advanced beyond the inferior posterior calyx due to the calculus. Patient has an in terval undergone lithotripsy with fragmentation of the inferior pole calculus and therefore presents for reattempted access. MEDICAL HISTORY : Thyroid disease IBS Sleep apnea Renal disease Hypercholesterolemia Hyperlipidemia SURGICAL HISTORY : Spinal sx x3 Breast biopsy Nephrectomy ENCOUNTER: Subsequent ACUITY: 1 month PAIN SCORE: 3/10 LOCATION: Left flank FLUORO TIME: 7.1 minutes IMAGE SERIES: 1 SEDATION TIME: 40 minutes CONTRAST: 15 cc Omnipaque (iohexol) 350 MEDICATION(S): 1.) 2 mg midazolam (Versed) IV 2.) 200 mcg fentanyl (Sublimaze) IV DEVICE(S): 1.) 8.3FR 25CM Expel PROCEDURE : 1. fluoroscopic guidance 2. Conscious sedation 3. Antegrade catheter placement through existing nephrostomy tract into the bladder 4. Replacement of nephrostomy catheter The risks, benefits and alternatives to the procedure were explained and verbal and written consent w as obtained. The site was prepped in sterile fashion. Full sterile technique was used, including ca p, mask, sterile gloves and gown and a large sterile sheet. Hand hygiene and 2% chlorhexidine and/or betadine/alcohol prep was utilized per protocol for cutaneous antisepsis. The skin and subcutaneous tissues were infiltrated with local anesthetic solution. Patient was placed prone. Existing catheter and stranding skin were prepped and draped in usual steri le fashion. 1% lidocaine solution was injected for local anesthesia. Guidewire was advanced through t he existing catheter and the catheter was removed. A 5 Prydeinig sheath was then placed over the wire. F ollowing multiple attempts utilizing a 4 Prydeinig Kumpe catheter T. Glidewire was successfully advanced through the central renal pelvis into the ureter and subsequently into the bladder. Position was con firmed a small amount contrast. A 4 Prydeinig Kumpe catheter was advanced with the tip in the bladder. N ext, a new 8 Prydeinig nephrostomy catheter was placed through tract and positioned in the renal pelvis. Patient tolerated the procedure well and there were no immediate postprocedural palpitations. CONCLUSION: 1. Uncomplicated technically successful antegrade placement of 4 Prydeinig catheter into the bladder thr ough the existing inferior pole nephrostomy tract. 2. Fluoroscopic guided exchange of 8 Prydeinig nephrostomy catheter. Juwan Parada MD on June 29, 2017 at 11:42 Board Certified Radiologist. This report was verified electronically.
== END 2017-06-29 12:10 | disposition home or self-care (01) ==
LOC: HRIP 07:20 → HROP 07:20
PROVIDERS: ATTEND Urology
DX: N13.2 Hydronephrosis with renal and ureteral calculous obstruction (principal); Z01.818 Encounter for other preprocedural examination; E03.9 Hypothyroidism, unspecified; E78.00 Pure hypercholesterolemia, unspecified; G47.30 Sleep apnea, unspecified; K58.9 Irritable bowel syndrome, unspecified; E78.5 Hyperlipidemia, unspecified; N28.9 Disorder of kidney and ureter, unspecified
CPT/HCPCS: 50695; 80048; 85025; 85610; 85730; 99152; 99153; C1729; C1769; C1887; C1894; J1580; J2250; J3010; J7030; Q9967

== ENCOUNTER 2017-07-02 08:37 | Inpatient (IN) | payer OTHER, MEDICARE ==
[~2017-07-02] VITALS: Ht 157.5 cm; Wt 87.6 kg
[2017-07-02] MEDS ORDERED: METOPROLOL TARTRATE 25 MG TAB PO PRN (09:15)
[2017-07-02] MEDS ORDERED: CHLORHEXIDINE GLUCONATE 2 % 1 PACK (2 CLOTHS) TOPICAL PRN (09:15)
[2017-07-02] MEDS ORDERED: POVIDONE IODINE 5% (ANTISEPSIS KIT) 4 APPLICATIONS EACH NARE PRN (09:15)
[2017-07-02] MEDS ORDERED: SODIUM CHLORID 0.9% 500 ML IV PRN (09:15)
[2017-07-02] MEDS ORDERED: VANCOMYCIN HCL 1000 MG ON-CALL/NS 250 ML IV SCH ×2 (09:15)
[2017-07-02] MEDS ORDERED: INSULIN HUMAN REGULAR 1,000 UNITS/10 ML VIAL SQ PRN (09:15)
[2017-07-02] MEDS ORDERED: LACTATED RINGER'S 1000 ML IV PRN (09:15)
[2017-07-02] MEDS ORDERED: GENTAMICIN INJ 240 MG in SODIUM CHLORIDE 0.9% INJ 100 ML IV SCH (09:30)
[2017-07-02] MEDS ORDERED: OXYC1TAB63 PO (09:46)
[2017-07-02] MEDS ORDERED: ACET325C PO (09:49)
[2017-07-02] MEDS ORDERED: DO NOT ADM ANY ANTICOAGULANT DRUGS PRN (13:59)
[2017-07-02] MEDS ORDERED: ONDANSETRON HCL 4 MG/2 ML VIAL IV PUSH PRN (14:00)
[2017-07-02] MEDS ORDERED: VANCOMYCIN INJ 1,000 MG in SODIUM CHLOR 0.9% 250 ML INJ 250 ML IV SCH (14:00)
[2017-07-02] MEDS ORDERED: diphenhydrAMINE HCL 50 MG/ML VIAL IV PUSH PRN (14:00)
[2017-07-02] MEDS ORDERED: ACETAMINOPHEN 650 MG/20.3 ML UDC PO PRN (14:00)
[2017-07-02] MEDS ORDERED: *ONDANSETRON 4 MG VIAL PERIprocedural Use ONLY ONE (14:01)
[2017-07-02] MEDS ORDERED: *MEPERIDINE 25 MG INJ VIAL PERIprocedural Use ONLY ONE (14:06)
[2017-07-02] MEDS ORDERED: *PROMETHAZINE 25 MG/ML VIAL PERIprocedural use ONLY ONE (14:13)
--- NOTE | 2017-07-02 14:15 | PD.OP ---
Operative Report Date of Surgery: Jul 02, 2017 Preoperative Diagnosis: Left staghorn calculus Postoperative Diagnosis: Same Procedure: Left percutaneous nephrolithotomy Anesthesia: PARVEZA Surgeon: Shar Morales Supervisor Looping(s): None Resident Surgeon: None Operation and Findings: 57-year-old female with history of a large left staghorn calculus admitted today to undergo left percutaneous nephrolithotomy. The patient underwent left extraportal shockwave lithotripsy to enable interventional radiology to pass a left percutaneous nephrostomy tube. This was done last week and she today presents for her procedure. Risk and benefits were discussed preoperatively and the patient was willing to proceed. Patient was brought to the operating room and identified as Sakshi Pruett. She was initially placed in the supine position and then underwent an endotracheal tube intubation with general anesthesia. She was then placed in the prone position onto the operating table and all areas were appropriately padded. A Carreon catheter was inserted and she was prepped and draped in usual sterile fashion. The nephrostomy tube was also prepped and draped in usual sterile fashion. Under fluoroscopic imaging guidance, the stone was visualized throughout the entire calyces of the left kidney. Access with a percutaneous nephrostomy tube was through the lower pole. An Amplatz Super Stiff wire was then passed through the Jiang catheter down the ureter into the bladder. The catheter was removed. Leaving the wire in place, the renal max balloon dilatation system was utilized and passed over the wire into the collecting system. The balloon was inflated to approximately 14 mmHg and allowed to sit for 3 minutes. Once the track was dilated the outer sheath was then passed over the balloon and left in good position. The balloon was then deflated and then removed without difficulty over the wire. Leaving the wire in place, the nephroscope was then passed into the collecting system. Large stone fragments were visualized and using the Logisticared ultrasound graeme the stone was then fragmented and removed from the kidney via suction. All the stones in the lower pole, renal pelvis and middle calyx were removed without much difficulty. A smaller stone was located in the upper pole calyx which was partially fragmented from prior ESWL, but is unable to access this with the nephroscope. The flexible cystoscope was then used to pass up to the upper pole calyx. A 200 laser fire was then used to fragment the stone. The stone was partially fragmented but I was unable to fragment the entire stone using the 200 laser. A few small fragments were retrieved with a nitinol basket. As I was unable to laser the entire stone in the upper pole, decision was made to complete the case. A 16 Divehi tlingit & haida tip catheter was introduced through the sheath and under fluoroscopic guidance was placed into the collecting system. An antegrade pyelogram was then performed demonstrating residual stone fragments in the upper pole. The balloon of the catheter was inflated with 3 cc. The catheter was then secured with a 2-0 silk suture. The patient tolerated the procedure well and was awoken and extubated and transferred to the recovery room in stable condition. She tolerated the procedure well. Shar Morales DO Jul 02, 2017 14:15
[2017-07-02] MEDS ORDERED: *HYDROmorphone PF 1 MG VIAL PERIprocedural Use ONLY ONE (14:23)
[2017-07-02] MEDS: LACTATED RINGER'S 1000 ML INJ 1,000 ML IV SCH ×2 (14:42→22:10)
--- NOTE | 2017-07-02 14:58 | RADRPT ---
EXAM DATE/TIME: 07/02/2017 12:30 [facility] COMPARISON: ABDOMEN KUB ONLY, May 13, 2017, 7:52. INDICATIONS : PERCUTANEOUS NEPHROLITHOTRIPSY. MEDICAL HISTORY : Unobtainable. SURGICAL HISTORY : Unobtainable. ENCOUNTER: Subsequent ACUITY: 3 days PAIN SCORE: Non-responsive. LOCATION: Left abdomen. FINDINGS: 2 spot fluoroscopic images obtained in the operating room during procedure demonstrate instrument ove rlying the collecting system. There is a ureteral stent present. A catheter is advanced into the left ureter on image 1/2. There is contrast within the collecting systems. CONCLUSION: Spot fluoroscopic images obtained during left kidney procedure. Please see operative report for furth er details. Joselo Castro MD on July 02, 2017 at 14:55 Board Certified Radiologist. This report was verified electronically.
[2017-07-02 15:07] LABS: HEMATOCRIT 36.4 % (35.0-46.0); MEAN CELL VOLUME 95.5 FL (80.0-100.0); MEAN CORPUSCULAR HEMOGLOBIN 32.6 PG (27.0-34.0); MEAN CORPUSCULAR HGB CONC 34.1 % (32.0-36.0); PLATELET COUNT 373 TH/MM3 (150-450); RED BLOOD COUNT 3.81 MIL/MM3 (4.00-5.30); RED CELL DISTRIBUTION WIDTH 14.4 % (11.6-17.2); REVIEW FLAG FINAL; WHITE BLOOD COUNT 8.8 TH/MM3 (4.0-11.0)
[2017-07-02 15:23] LABS: BICARBONATE 26.2 MEQ/L (21.0-32.0); POTASSIUM 3.8 MEQ/L (3.5-5.1)
[2017-07-02 16:24] VITALS: BP 127/62; PULSE 65; RESP 19; TEMP 96.3; O2SAT 100
[2017-07-02] MEDS: oxyCODONE/ACETAMINOPHEN 10 MG/325 MG TAB PO PRN (18:13)
[2017-07-02] MEDS: HYDROmorphone HCL PF 1 MG/ML VIAL IV PUSH PRN (19:43)
[2017-07-02 20:39] VITALS: BP 85/48; PULSE 88; RESP 18; TEMP 98.4; O2SAT 94
[2017-07-02 20:50] VITALS: O2SAT 93
[2017-07-02 21:02] VITALS: BP 92/54
[2017-07-02] MEDS: buPROPion HCL 150 MG SUSTAINED RELEASE TAB PO SCH (22:10)
[2017-07-02] MEDS: VANCOMYCIN INJ 1,000 MG in SODIUM CHLOR 0.9% 250 ML INJ 250 ML IV SCH (23:10)
[2017-07-03] VITALS (7 sets, daily range): BP systolic 90–188; BP diastolic 50–99; PULSE 68–85; RESP 15–18; TEMP 96.7–99.6; O2SAT 91–98
[2017-07-03] MEDS: LEVOTHYROXINE SODIUM 125 MCG TAB PO SCH (05:10)
[2017-07-03] MEDS: LACTATED RINGER'S 1000 ML INJ 1,000 ML IV SCH ×3 (05:11→21:39)
[2017-07-03] MEDS: HYDROmorphone HCL PF 1 MG/ML VIAL IV PUSH PRN (07:48)
[2017-07-03] MEDS: FLUoxetine HCL 20 MG CAP PO SCH (08:05)
[2017-07-03] MEDS: buPROPion HCL 150 MG SUSTAINED RELEASE TAB PO SCH ×2 (08:05→21:38)
[2017-07-03 08:12] LABS: HEMATOCRIT 32.5 % (35.0-46.0); MEAN CELL VOLUME 94.5 FL (80.0-100.0); MEAN CORPUSCULAR HEMOGLOBIN 32.6 PG (27.0-34.0); MEAN CORPUSCULAR HGB CONC 34.5 % (32.0-36.0); PLATELET COUNT 354 TH/MM3 (150-450); RED BLOOD COUNT 3.44 MIL/MM3 (4.00-5.30); RED CELL DISTRIBUTION WIDTH 14.4 % (11.6-17.2); REVIEW FLAG FINAL; WHITE BLOOD COUNT 8.6 TH/MM3 (4.0-11.0)
[2017-07-03 08:23] LABS: BICARBONATE 27.1 MEQ/L (21.0-32.0); POTASSIUM 3.6 MEQ/L (3.5-5.1)
--- NOTE | 2017-07-03 09:06 | RADRPT ---
EXAM DATE/TIME: 07/03/2017 08:16 [facility] COMPARISON: ABDOMEN KUB ONLY, May 13, 2017, 7:52. ABDOMEN KUB ONLY, July 02, 2017, 12:30. INDICATIONS : Status post Percutaneous Nephrolithotomy. Patient complains of abdomen pain. MEDICAL HISTORY : Hypercholesterolemia. Thyroid disease,IBS,Sleep Apnea.Renal Disease, SURGICAL HISTORY : x 3, breast biopsy, Nephrectomy. Left kidney stent. ENCOUNTER: Subsequent ACUITY: 4 - 6 days PAIN SCORE: 10/10 LOCATION: Bilateral Abdomen. FINDINGS: Stable double-J ureteral stent in place. Interval placement of a large bore nephrostomy access. Impro jose staghorn calculus with large residual calcified calculus in the inferior calyces and fragmented c alculi in the mid and superior pole. No additional calculi noted along the course of the ureter. Mult iple loops of nondistended air-filled small bowel with air noted throughout the colon. Remainder of e xam is unchanged. CONCLUSION: 1. Stable double-J left ureteral stent with interval placement of large bore nephrostomy access. 2. Interval left nephrolithotomy with improved staghorn calculus. Large residual calcified calculi in the inferior calyces with fragments in the mid and superior pole. 3. No significant ureteral calculi. Juwan Parada MD on July 03, 2017 at 8:59 Board Certified Radiologist. This report was verified electronically.
--- NOTE | 2017-07-03 09:46 | HHI.PR ---
Subjective Patient symptoms today Pt seen and examined. Feels well. Pain controlled. Objective Vital Signs Vital Signs Date Time Temp Pulse Resp B/P (MAP) Pulse Ox O2 Delivery O2 Flow Rate FiO2 07/03/17 07:46 68 15 110/78 (89) 07/03/17 04:00 99.6 81 16 96/50 (65) 95 07/03/17 00:00 96.9 79 18 90/62 (71) 94 07/02/17 21:02 92/54 (67) 07/02/17 20:50 93 Nasal Cannula 2.00 07/02/17 20:39 98.4 88 18 85/48 (60) 94 07/02/17 16:24 96.3 65 19 127/62 (83) 100 07/02/17 16:00 63 13 119/77 (91) 99 Nasal Cannula 2 07/02/17 15:45 65 13 138/75 (96) 98 Nasal Cannula 2 07/02/17 15:30 62 13 135/72 (93) 97 Nasal Cannula 2 07/02/17 15:00 97.9 61 12 150/75 (100) 98 Nasal Cannula 2 07/02/17 14:45 66 16 151/70 (97) 99 Nasal Cannula 2 07/02/17 14:30 61 13 117/56 (76) 96 Nasal Cannula 2 07/02/17 14:15 67 17 106/51 (69) 100 Nasal Cannula 2 07/02/17 14:00 82 14 132/78 (96) 98 Nasal Cannula 2 07/02/17 13:58 97.5 75 16 147/77 (100) 99 Nasal Cannula 2 Intake & Output 07/03/17 07/03/17 07:00 19:00 Intake Total 2286 ml Output Total 700 ml Balance 1586 ml Intake Oral 480 ml IV Total 1806 ml Output Urine Total 550 ml Drainage Total 150 ml # Bowel Movements 0 Result Diagram: 07/03/1771407/03/17714 Imaging Last 24 hours Impressions Abdomen X-Ray 07/03/17 0600 Signed Impressions: Service Date/Time: Monday, July 03, 2017 08:16 - CONCLUSION: 1. Stable double-J left ureteral stent with interval placement of large bore nephrostomy access. 2. Interval left nephrolithotomy with improved staghorn calculus. Large residual calcified calculi in the inferior calyces with fragments in the mid and superior pole. 3. No significant ureteral calculi. Juwan Parada MD Objective Remarks Abd:soft,nt,nd Carreon with clear urine Left PCNT: blood tinged urine Medications and IVs Current Medications Medications (Trade) Dose Ordered Sig/Devan Route Start Time Stop Time Status Last Admin Lactated Ringer's 1,000 ml @ 30 mls/hr Q24H PRN IV 07/02/17 09:15 07/05/17 09:14 07/02/17 09:30 Sodium Chloride 500 ml @ 30 mls/hr [id number] PRN IV 07/02/17 09:15 07/05/17 09:14 (Lopressor) 25 mg PTA PRN PO 07/02/17 09:15 07/05/17 09:14 (Betadine 5% Antisepsis Kit) 1 applic PTA PRN EACH NARE 07/02/17 09:15 07/05/17 09:14 07/02/17 09:45 (Chlorhexidine 2% Cloth) 3 pack PTA PRN TOPICAL 07/02/17 09:15 07/05/17 09:14 07/02/17 09:00 (NovoLIN R INJ) See Protocol Table ... PTA PRN SQ 07/02/17 09:15 07/05/17 09:14 Vancomycin HCl 1000 mg/Sodium Chloride 250 ml @ 250 mls/hr PTA IV 07/02/17 09:15 07/05/17 09:14 07/02/17 11:30 (Zofran Inj) 4 mg Q6HR PRN IV PUSH 07/02/17 14:00 (Wellbutrin Sr) 150 mg BID PO 07/02/17 21:00 07/03/17 08:05 (Synthroid) 125 mcg DAILY@0600 PO 07/03/17 06:00 07/03/17 05:10 (PROzac) 20 mg DAILY PO 07/03/17 09:00 07/03/17 08:05 (Dilaudid Pf Inj) 1 mg Q4H PRN IV PUSH 07/02/17 14:00 07/03/17 07:48 (Percocet 10-325 Mg) 1 tab Q4H PRN PO 07/02/17 14:00 07/02/17 18:13 (Tylenol 650 Mg/ 20 ml Liq) 650 mg Q6H PRN PO 07/02/17 14:00 Lactated Ringer's 1,000 ml @ 125 mls/hr Q8H IV 07/02/17 14:00 07/03/17 05:11 (Benadryl Inj) 25 mg Q6H PRN IV PUSH 07/02/17 14:00 Miscellaneous Information ALL NURSING DEPARTME... UNSCH PRN .XX 07/02/17 13:59 07/03/17 13:58 Vancomycin HCl 1000 mg/Sodium Chloride 250 ml @ 250 mls/hr Q12H IV 07/03/17 00:00 07/02/17 23:10 Assessment and Plan Assessment and Plan Stable s/p Left PCNL Void trial today OOB to chair/Ambulate Advance to regular diet Shar Morales DO Jul 03, 2017 09:46
[2017-07-03] MEDS: oxyCODONE/ACETAMINOPHEN 10 MG/325 MG TAB PO PRN ×3 (11:39→21:39)
[2017-07-03] MEDS: VANCOMYCIN INJ 1,000 MG in SODIUM CHLOR 0.9% 250 ML INJ 250 ML IV SCH (11:41)
[2017-07-04] VITALS (8 sets, daily range): BP systolic 92–120; BP diastolic 50–78; PULSE 67–82; RESP 16–18; TEMP 96.4–99.2; O2SAT 93–95
[2017-07-04] MEDS: VANCOMYCIN INJ 1,000 MG in SODIUM CHLOR 0.9% 250 ML INJ 250 ML IV SCH ×3 (00:49→23:53)
[2017-07-04] MEDS: LEVOTHYROXINE SODIUM 125 MCG TAB PO SCH (04:16)
[2017-07-04] MEDS: oxyCODONE/ACETAMINOPHEN 10 MG/325 MG TAB PO PRN ×5 (04:16→21:50)
[2017-07-04] MEDS: LACTATED RINGER'S 1000 ML INJ 1,000 ML IV SCH ×3 (04:16→21:45)
[2017-07-04] MEDS: buPROPion HCL 150 MG SUSTAINED RELEASE TAB PO SCH ×2 (08:58→21:43)
[2017-07-04] MEDS: FLUoxetine HCL 20 MG CAP PO SCH (08:58)
--- NOTE | 2017-07-04 14:01 | HHI.PR ---
Subjective Patient symptoms today Pt seen and examined. Some pain with some leaking around PCNT. No fevers Objective Vital Signs Vital Signs Date Time Temp Pulse Resp B/P (MAP) Pulse Ox O2 Delivery O2 Flow Rate FiO2 07/04/17 12:00 99.2 82 18 100/58 (72) 94 07/04/17 10:11 18 07/04/17 08:00 97.3 67 18 94/59 (71) 93 07/04/17 04:00 97.9 78 16 108/62 (77) 94 07/04/17 00:00 96.4 71 16 92/64 (73) 94 Manual Cuff/Palpation Automatic Cuff 07/03/17 19:26 90/60 (70) 07/03/17 16:00 98.8 85 18 97 Intake & Output 07/04/17 07/04/17 07:00 19:00 Intake Total 2367 ml 950 ml Output Total 2250 ml Balance 117 ml 950 ml Intake Oral 720 ml IV Total 1647 ml 950 ml Output Urine Total 250 ml Drainage Total 2000 ml # Bowel Movements 0 Result Diagram: 07/03/17 0715 07/03/17 0715 Objective Remarks Abd:soft,nt,nd Carreon with clear urine Left PCNT: blood tinged urine 07/04 Abd: soft,nt,nd Carreon out and voiding Left PCNT: dressing changed Medications and IVs Current Medications Medications (Trade) Dose Ordered Sig/Devan Route Start Time Stop Time Status Last Admin Lactated Ringer's 1,000 ml @ 30 mls/hr Q24H PRN IV 07/02/17 09:15 07/05/17 09:14 07/02/17 09:30 Sodium Chloride 500 ml @ 30 mls/hr [id number] PRN IV 07/02/17 09:15 07/05/17 09:14 (Lopressor) 25 mg FLAME BURNER PRN PO 07/02/17 09:15 07/05/17 09:14 (Betadine 5% Antisepsis Kit) 1 applic FLAME BURNER PRN EACH NARE 07/02/17 09:15 07/05/17 09:14 07/02/17 09:45 (Chlorhexidine 2% Cloth) 3 pack FLAME BURNER PRN TOPICAL 07/02/17 09:15 07/05/17 09:14 07/02/17 09:00 (NovoLIN R INJ) See Protocol Table ... FLAME BURNER PRN SQ 07/02/17 09:15 07/05/17 09:14 Vancomycin HCl 1000 mg/Sodium Chloride 250 ml @ 250 mls/hr FLAME BURNER IV 07/02/17 09:15 07/05/17 09:14 07/02/17 11:30 (Zofran Inj) 4 mg Q6HR PRN IV PUSH 07/02/17 14:00 (Wellbutrin Sr) 150 mg BID PO 07/02/17 21:00 07/04/17 08:58 (Synthroid) 125 mcg DAILY@0600 PO 07/03/17 06:00 07/04/17 04:16 (PROzac) 20 mg DAILY PO 07/03/17 09:00 07/04/17 08:58 (Dilaudid Pf Inj) 1 mg Q4H PRN IV PUSH 07/02/17 14:00 07/03/17 07:48 (Percocet 10-325 Mg) 1 tab Q4H PRN PO 07/02/17 14:00 07/04/17 13:11 (Tylenol 650 Mg/ 20 ml Liq) 650 mg Q6H PRN PO 07/02/17 14:00 Lactated Ringer's 1,000 ml @ 125 mls/hr Q8H IV 07/02/17 14:00 07/04/17 09:12 (Benadryl Inj) 25 mg Q6H PRN IV PUSH 07/02/17 14:00 Vancomycin HCl 1000 mg/Sodium Chloride 250 ml @ 250 mls/hr Q12H IV 07/03/17 00:00 07/04/17 12:45 Assessment and Plan Assessment and Plan Stable s/p Left PCNL Void trial today OOB to chair/Ambulate Advance to regular diet 07/04 Stable s/p Left PCNL Cath plug to Left PCNT OOB/Ambulate Possible D/C home in Shar Muller DO Jul 04, 2017 14:01
[2017-07-05] VITALS: PULSE 73; RESP 17; TEMP 97.5; O2SAT 95
[2017-07-05 04:02] VITALS: PULSE 67; RESP 17; TEMP 97.6; O2SAT 95
[2017-07-05] MEDS: LEVOTHYROXINE SODIUM 125 MCG TAB PO SCH (05:19)
[2017-07-05] MEDS: LACTATED RINGER'S 1000 ML INJ 1,000 ML IV SCH (05:19)
[2017-07-05] MEDS: buPROPion HCL 150 MG SUSTAINED RELEASE TAB PO SCH (07:51)
[2017-07-05] MEDS: FLUoxetine HCL 20 MG CAP PO SCH (07:51)
[2017-07-05] MEDS: oxyCODONE/ACETAMINOPHEN 10 MG/325 MG TAB PO PRN (07:51)
[2017-07-05 08:34] VITALS: BP 108/62; PULSE 76; RESP 17; TEMP 97.7; O2SAT 92
--- NOTE | 2017-07-05 09:33 | HHI.PR ---
Subjective Patient symptoms today Pt seen and examined. Feels well. Some leaking around PCNT. Voiding well. Objective Vital Signs Vital Signs Date Time Temp Pulse Resp B/P (MAP) Pulse Ox O2 Delivery O2 Flow Rate FiO2 07/05/17 08:34 97.7 76 17 108/62 (77) 92 07/05/17 04:02 97.6 67 17 95 07/05/17 00:00 97.5 73 17 95 07/04/17 23:31 104/64 (77) 07/04/17 21:53 120/78 (92) 07/04/17 20:00 98.2 72 17 95 07/04/17 18:56 18 07/04/17 16:00 95 21 07/04/17 16:00 98.1 70 18 98/50 (66) 95 07/04/17 12:00 99.2 82 18 100/58 (72) 94 Intake & Output 07/05/17 07/05/17 07:00 19:00 Intake Total 3516 ml Output Total 500 ml Balance 3016 ml Intake Oral 600 ml IV Total 2916 ml Output Urine Total 500 ml # Bowel Movements 0 Result Diagram: 07/03/1771407/03/17714 Objective Remarks Abd:soft,nt,nd Carreon with clear urine Left PCNT: blood tinged urine 07/04 Abd: soft,nt,nd Carreon out and voiding Left PCNT: dressing changed 07/05 Abd: soft,nt,nd Carreon out and voiding Left PCNT: dressing intact Medications and IVs Current Medications Medications (Trade) Dose Ordered Sig/Devan Route Start Time Stop Time Status Last Admin (Zofran Inj) 4 mg Q6HR PRN IV PUSH 07/02/17 14:00 (Wellbutrin Sr) 150 mg BID PO 07/02/17 21:00 07/05/17 07:51 (Synthroid) 125 mcg DAILY@0600 PO 07/03/17 06:00 07/05/17 05:19 (PROzac) 20 mg DAILY PO 07/03/17 09:00 07/05/17 07:51 (Percocet 10-325 Mg) 1 tab Q4H PRN PO 07/02/17 14:00 07/05/17 07:51 (Tylenol 650 Mg/ 20 ml Liq) 650 mg Q6H PRN PO 07/02/17 14:00 Lactated Ringer's 1,000 ml @ 125 mls/hr Q8H IV 07/02/17 14:00 07/05/17 05:19 (Benadryl Inj) 25 mg Q6H PRN IV PUSH 07/02/17 14:00 Vancomycin HCl 1000 mg/Sodium Chloride 250 ml @ 250 mls/hr Q12H IV 07/03/17 00:00 07/04/17 23:53 Assessment and Plan Assessment and Plan Stable s/p Left PCNL Void trial today OOB to chair/Ambulate Advance to regular diet 07/04 Stable s/p Left PCNL Cath plug to Left PCNT OOB/Ambulate Possible D/C home in AM 07/05 Stable s/p Left PCNL D/C home today Shar Morales DO Jul 05, 2017 09:33
[2017-07-05] MEDS ORDERED: BACT800T5 PO (10:48)
[2017-07-05] MEDS ORDERED: PERC5TAB12 PO (10:48)
--- NOTE | 2017-07-06 10:15 | MD ---
cc: ALLEN MATTHEW ADMISSION DATE: 07/02/2017 DISCHARGE DATE: 07/05/17 BRIEF HISTORY: Ms. Pruett is a 57 year-old female who presented with findings of left staghorn calculous. HOSPITAL COURSE: She underwent left percutaneous nephrolithotomy on 07/02/2017. She tolerated the procedure well. Hospital day 1, her pain was controlled. The Carreon catheter was putting out blood-tinged urine and she was able to get out of bed to the chair. Her diet was advanced to a full liquid diet which she tolerated the following day. On postop day 2, her dressing was reinforced and the nephrostomy tube was clamped. Her urine was clear and her Carreon catheter was removed and she was voiding without difficulty. Hospital day 3, she continued to do well and was discharged on 07/05/2017. DISCHARGE INSTRUCTIONS: At the time of discharge, she was given instructions on diet and exercise and medications. FOLLOWUP: Schedule follow up in one week to have the nephrostomy tube removed. She will follow up then with a CT scan to determine how to treat the residual stone burden if any is left. Allen RUIZ/ADAM /11:46 AM /10:11 AM
== END 2017-07-05 13:47 | disposition home or self-care (01) | DRG 661 ==
LOC: HSDC 08:37 → HSDI 14:06 → N06B 16:23
PROVIDERS: ADMIT Urology; ATTEND Urology
PROC: BT1F1ZZ Fluoroscopy of Left Kidney, Ureter and Bladder using Low Osmolar Contrast (ICD-10-PCS; 2017-07-02)
PROC: 0TC13ZZ Extirpation of Matter from Left Kidney, Percutaneous Approach (ICD-10-PCS; principal; 2017-07-02 11:42)
DX: N20.0 Calculus of kidney (principal); Z93.6 Other artificial openings of urinary tract status; F32.9 Major depressive disorder, single episode, unspecified; E78.5 Hyperlipidemia, unspecified; G47.30 Sleep apnea, unspecified; M54.9 Dorsalgia, unspecified; M54.2 Cervicalgia; K58.9 Irritable bowel syndrome, unspecified
CPT/HCPCS: 74000; 76000; 80048; 82370; 85027; 88300; 94150; J1170; J1580; J2175; J2405; J2550; J3370; J7050; J7120